=== PATIENT | female | born 1940 | race Caucasian/White ===

== ENCOUNTER 2016-11-06 19:07 | Inpatient (IN) | payer MEDICARE, OTHER ==
[~2016-11-06] VITALS: Ht 157.5 cm; Wt 92.6 kg
[~2016-11-06 19:07] MED LIST: ALEN70TA47 PO; AMLO10TA4 PO; ASPI-892 PO; ATOR40TA; ATOR80TA PO; CALC-732 PO; CLOP75TA; CODE118S2 PO; CRV25T PO; FOLI1TAB7 PO; GLIM4TAB PO; GLMP4T; HCT25T PO; ISOS30TA7 PO; LISI40TA PO; ME-C1TAB PO; METFOR850T PO; NF-METANX; NF-METANX PO; NIA500ERT PO; NTR.4SL; OMG1KC PO; PNT40TEC; PRAS10TA6 PO; RANI75TA30 PO
--- OUTSIDE RECORDS SUMMARY | 2016-11-06 19:12 | XMS REPORT | Continuity of Care Document ---
Author Author [facility] Organization [facility] Address Unknown Phone Unavailable Allergies Active Description Code Type Severity Reaction Onset Reported/Identified Relationship to Patient Clinical Status Yes No Known Drug Allergies [id number] Drug Allergy Unknown N/ A 06/30/2007 Medications Problems Date Dx Coded Attending Type Code Diagnosis Diagnosed By 09/01/2015 CITLALLI BEASLEY MD Ot E78.2 09/01/2015 CITLALLI BEASLEY MD Ot I10 09/01/2015 CITLALLI BEASLEY MD Ot I25.10 09/01/2015 CITLALLI BEASLEY MD Ot R07.89 09/22/2015 CITLALLI BEASLEY MD Ot E78.2 09/22/2015 CITLALLI BEASLEY MD Ot I10 09/22/2015 CITLALLI BEASLEY MD Ot I25.10 09/22/2015 CITLALLI BEASLEY MD Ot R07.89 Procedures Results Encounters ACCT No. Visit Date/Time Discharge Status Pt. Type Provider Facility Loc./Unit Complaint [id number] 01/06/2014 07:34:00 2013 23:59:59 CLS Outpatient [id number] 06/01/2013 09:32:00 2012 23:59:59 CLS Outpatient [id number] 11/06/2016 19:08:00 ACT Emergency VIRGIL JUNG MD [facility] ER VOMITING,POSSIBLE DEHYDRATION [id number] 08/09/2015 10:50:00 ACT Outpatient CITLALLI BEASLEY MD [facility] CARD
--- NOTE | 2016-11-06 19:55 | ED GI ---
General Chief Complaint: Abdominal/GI Problems Stated Complaint: VOMITING,POSSIBLE DEHYDRATION Nursing Triage Note: PT REPORTS N/V SINCE SATURDAY. SHE REPORTS GENERALIZED MALAISE. PT IS ALSO FEBRILE. Sepsis Screen: No Definite Risk Source of Information: Patient Exam Limitations: No Limitations History of Present Illness Time Seen By Provider: 19:54 Initial Comments Is brought to ER by her daughter with reports of nausea vomiting and general malaise for 3 days. She denies any pain or shortness of breath. She denies diarrhea. Timing/Duration: 2-3 Days Severity/Quality: Burning Radiation: No Radiation Activities at Onset: None Associated Symptoms: Nausea/Vomiting Allergies and Home Medications Allergies Coded Allergies: No Known Drug Allergies (Verified , 06/30/07) Home Medications Alendronate Sodium 70 Mg Tablet 70 MG PO WEEKLY (Reported) Amlodipine Besylate 10 Mg Tablet 10 MG PO DAILY (Reported) Aspirin 81 Mg Tablet.dr 81 MG PO DAILY (Reported) Atorvastatin Calcium 80 Mg Tablet 80 MG PO DAILY (Reported) Calcium Carb/Vit D3/Minerals 1 Each Tab.chew 1 EACH PO DAILY (Reported) Carvedilol 25 Mg Tablet 25 MG PO BID (Reported) Folic Acid/Multivits-Min/Lut 1 Each Tab.chew (Reported) Glimepiride 4 Mg Tablet 12 MG PO DAILY (Reported) 8MG IN MORNING AND 4 MG IN EVENING Hydrochlorothiazide 25 Mg Tab 25 MG PO BID (Reported) Isosorbide Dinitrate 30 Mg Tablet 30 MG PO BID (Reported) Lisinopril 40 Mg Tablet 40 MG PO DAILY (Reported) Me-Cobalam/Lm-Folate/Pyridoxal 1 Each Tablet 1 EACH PO BID (Reported) Me-Cobalam/Lm-Folate/Pyridoxal 1 Tab Tablet 1 TAB PO DAILY (Reported) Metformin Hcl 850 Mg Tablet 850 MG PO DAILY (Reported) Niacin 500 Mg Tablet.sa 1,000 MG PO DAILY (Reported) [place] 3 Polyunsat Fatty Acids 1,000 Mg Cap 3,000 MG PO DAILY (Reported) Prasugrel Hydrochloride 10 Mg Tablet 10 MG PO DAILY (Reported) Ranitidine Hcl 75 Mg Tablet 150 MG PO BID (Reported) Review of Systems Constitutional: see HPI malaise weakness EENTM: No Symptoms Reported Respiratory: No Symptoms Reported Cardiovascular: No Symptoms Reported Gastrointestinal: See HPI Abdominal Pain Nausea Vomiting Genitourinary: No Symptoms Reported Musculoskeletal: no symptoms reported Skin: no symptoms reported Psychiatric/Neurological: No Symptoms Reported Endocrine: No Symptoms Reported Hematologic/Lymphatic: No Symptoms Reported Past Yoiwnqg-Yqfemx-Gjrrgq Hx Patient Social History Alcohol Use: Denies Use Recreational Drug Use: No Smoking Status: Former Smoker 2nd Hand Smoke Exposure: No Recent Foreign Travel: No Contact w/Someone Who Travel: No Recent Infectious Disease Expo: No Recent Hopitalizations: Yes Immunizations Up To Date Date of Pneumonia Vaccine: Aug 06, 2012 Date of Influenza Vaccine: Aug 06, 2012 Surgeries HX Surgeries: Yes (LEFT CAROTID) Surgeries: Adenoidectomy, Appendectomy, CABG, Gallbladder, Tonsillectomy Respiratory Hx Respiratory Disorders: Yes (GETS SOB WITH ANY FAST ACTIVITY) Cardiovascular Hx Cardiac Disorders: Yes Cardiac Disorders: Coronary Artery Disease, High Cholesterol, Hypertension Neurological Hx Neurological Disorders: No Reproductive System Hx Reproductive Disorders: No Genitourinary Hx Genitourinary Disorders: No Gastrointestinal Hx Gastrointestinal Disorders: Yes Gastrointestinal Disorders: Gastroesophageal Reflux Musculoskeletal Hx Musculoskeletal Disorders: No Endocrine Hx Endocrine Disorders: Yes Endocrine Disorders: Diabetes, Non-Insulin dep HEENT HX ENT Disorders: No Cancer Hx Cancer: No Physical Exam Vital Signs VS - Last 72 Hours, by Label 11/06/16 19:38 Temp 100.1 Pulse 77 Resp 15 B/P 132/67 Pulse Ox 95 O2 Delivery Room Air Capillary Refill : Less Than 3 Seconds General Appearance: WD/WN no apparent distress HEENT: PERRL/EOMI normal ENT inspection Neck: non-tender full range of motion Respiratory: no respiratory distress no accessory muscle use Gastrointestinal: normal bowel sounds non tender soft Extremities: normal range of motion non-tender Neurologic/Psychiatric: alert normal mood/affect oriented x 3 Skin: normal color warm/dry Progress/Results/Core Measures Results/Orders Lab Results Laboratory Tests Test 11/06/16 19:35 Range/Units Alanine Aminotransferase (ALT/SGPT) 33 0-55 U/L Albumin 4.0 3.2-4.5 G/DL Alkaline Phosphatase 51 40-136 U/L Anion Gap 16 H 5-14 MMOL/L Aspartate Amino Transf (AST/SGOT) 80 H 5-34 U/L BUN/Creatinine Ratio 24 Basophils # (Auto) 0.0 0.0-0.1 10^3/uL Basophils (%) (Auto) 0 0-10 % Blood Urea Nitrogen 29 H 7-18 MG/DL Calcium Level 9.7 8.5-10.1 MG/DL Carbon Dioxide Level 23 21-32 MMOL/L Chloride Level 95 L 98-107 MMOL/L Creatinine 1.22 0.60-1.30 MG/DL Eosinophils # (Auto) 0.0 0.0-0.3 10^3/uL Eosinophils (%) (Auto) 0 0-10 % Estimat Glomerular Filtration Rate 43 Glucose Level 162 H 70-105 MG/DL Hematocrit 38 35-52 % Hemoglobin 13.4 11.5-16.0 G/DL Lipase 11 8-78 U/L Lymphocytes # (Auto) 3.0 1.0-4.0 X 10^3 Lymphocytes (%) (Auto) 27 12-44 % Mean Corpuscular Hemoglobin 30 25-34 PG Mean Corpuscular Hemoglobin Concent 35 32-36 G/DL Mean Corpuscular Volume 86 80-99 FL Mean Platelet Volume 10.5 H 7.4-10.4 FL Monocytes # (Auto) 0.9 0.0-1.0 X 10^3 Monocytes (%) (Auto) 8 0-12 % Neutrophils # (Auto) 7.6 1.8-7.8 X 10^3 Neutrophils (%) (Auto) 66 42-75 % Platelet Count 235 130-400 10^3/uL Potassium Level 3.8 3.6-5.0 MMOL/L Red Blood Count 4.43 4.35-5.85 10^6/uL Red Cell Distribution Width 14.7 H 10.0-14.5 % Sodium Level 134 L 135-145 MMOL/L Total Bilirubin 0.7 0.1-1.0 MG/DL Total Protein 6.9 6.4-8.2 G/DL Troponin I 10.08 *H <0.30 NG/ML White Blood Count 11.5 H 4.3-11.0 10^3/uL My Orders Orders-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 Cbc With Automated Diff (11/06/16 19:49) Saline Lock/Iv-Start (11/06/16 19:49) Comprehensive Metabolic Panel (11/06/16 19:49) Ua Culture If Indicated (11/06/16 19:49) Lipase (11/06/16 19:49) Chest 1 View, Ap/Pa Only (11/06/16 19:49) Ekg Tracing (11/06/16 19:49) Troponin I (11/06/16 19:49) Ns Iv 1000 Ml (Sodium Chloride 0.9%) (11/06/16 20:00) Ondansetron Injection (Zofran Injectio (11/06/16 20:00) Aspirin Chewable Tablet (Baby Aspirin Ch (11/06/16 20:30) Heparin Drip 19731 Unit/500ml (Heparin (11/06/16 20:32) Heparin (Bolus Per Protocol) (Heparin (B (11/06/16 20:32) Clopidogrel Tablet (Plavix Tablet) (11/06/16 20:45) Enoxaparin Injection (Lovenox Injection) (11/06/16 20:45) Carvedilol Tablet (Coreg Tablet) (11/06/16 20:45) Medications Given in ED Current Medications Medications Dose Ordered Sig/Reena Route Start Time Stop Time Status Last Admin Dose Admin Ondansetron HCl 4 mg ONCE ONCE IVP 11/06/16 20:00 11/06/16 20:01 DC 11/06/16 19:50 4 MG Vital Signs/I&O Vital Sign - Last 12Hours 11/06/16 19:38 Temp 100.1 Pulse 77 Resp 15 B/P 132/67 Pulse Ox 95 O2 Delivery Room Air Blood Pressure Mean: 88 Departure Communication Time/Spoke to Admitting Phy: 20:[address] Crocker who is on-call for cardiology. We'll admit to medicine consult cardiology. We will do treatment dose Lovenox, beta kun and the patient is already on carvedilol so we will give her her evening dose of 25 mg, aspirin and Plavix. Blood pressure is elevated at 165/110 heart rate in the 80s. She still denies any chest pain. Time/Spoke to Consulting Physi: 20:54 Communication/Consulting Discuss with Dr. Patel who agrees to admit. Impression Impression: Primary Impression: NSTEMI (non-ST elevated myocardial infarction) Disposition: 09 ADMITTED INPATIENT Condition: Stable Decision to Admit Reason: Admit from ER (General) Decision to Admit/Date: Nov 06, 2016 Time/Decision to Admit Time: 20:54 Departure-Patient Inst. Referrals: PRESTON JONES MD (PCP/Family) Primary Care Physician Copy Copies To 1: PRESTON JONES MD, PETER J APRN Nov 06, 2016 19:55
[2016-11-06 19:59] LABS: BASOPHILS % (AUTO) 0 % (0-10); EOSINOPHILS % (AUTO) 0 % (0-10); LYMPHOCYTES % (AUTO) 27 % (12-44); MEAN CORPUSCULAR HEMOGLOBIN 30 PG (25-34); MEAN CORPUSCULAR HGB CONC 35 G/DL (32-36); MEAN CORPUSCULAR VOLUME 86 FL (80-99); MEAN PLATELET VOLUME 10.5 FL (7.4-10.4); MONOCYTES # (AUTO) 0.9 X 10^3 (0.0-1.0); MONOCYTES % (AUTO) 8 % (0-12); NEUTROPHILS # (AUTO) 7.6 X 10^3 (1.8-7.8); NEUTROPHILS % (AUTO) 66 % (42-75); PLATELET COUNT 235 10^3/uL (130-400); RED BLOOD COUNT 4.43 10^6/uL (4.35-5.85); RED CELL DISTRIBUTION WIDTH 14.7 % (10.0-14.5); WHITE BLOOD COUNT 11.5 10^3/uL (4.3-11.0)
[2016-11-06] MEDS ORDERED: ONDANSETRON 4 MG/2 ML (SDV) Z0FRAN IVP ONE (20:00)
[2016-11-06] MEDS ORDERED: NS IV 1000 ML 1,000 ML IV SCH (20:00)
[2016-11-06 20:21] LABS: BILIRUBIN,TOTAL 0.7 MG/DL (0.1-1.0); CALCIUM 9.7 MG/DL (8.5-10.1); CREATININE SERUM 1.22 MG/DL (0.60-1.30); POTASSIUM 3.8 MMOL/L (3.6-5.0); TOTAL PROTEIN 6.9 G/DL (6.4-8.2)
[2016-11-06 20:30] LABS: TROPONIN I 10.08 NG/ML (<0.30)
[2016-11-06] MEDS ORDERED: ASPIRIN 81 MG CHEW (CHILDREN'S ASA) PO ONE (20:30)
--- NOTE | 2016-11-06 20:30 | Diagnostic Imaging Report ---
EXAM: CHEST 1 VIEW, AP/PA ONLY INDICATION: Nausea and vomiting. Fever. COMPARISON: Chest radiograph 08/05/2012. FINDINGS: No significant change. Normal heart size and pulmonary vascularity. Sternotomy with mediastinal markers. No focal pulmonary opacity, pleural effusion or pneumothorax. Esophageal hiatal hernia. Surgical clips in the neck. No acute osseous findings. IMPRESSION: No acute cardiopulmonary findings. Dictated by: Dictated on workstation # [id number]
[2016-11-06] MEDS ORDERED: HEParin DRIP 25000 UNIT/500ML 500 ML IV ONE (20:32)
[2016-11-06] MEDS ORDERED: HEParin 1000 UNIT/ML (10ML VIAL) FOR BOLUS IV ONE (20:32)
[2016-11-06] MEDS ORDERED: CLOPIDOGREL 300 MG (PLAVIX) TABLET PO ONE (20:45)
[2016-11-06] MEDS ORDERED: ENOXAPARIN 100 MG/1 ML (LOVENOX) SYR SC ONE (20:45)
[2016-11-06] MEDS ORDERED: CARVEDILOL 6.25 MG (COREG) TAB PO ONE (20:45)
[2016-11-06 23:45] VITALS: BP 162/57
[2016-11-07] VITALS (26 sets, daily range): BP systolic 117–172; BP diastolic 52–117
[2016-11-07 04:02] LABS: BASOPHILS % (AUTO) 0 % (0-10); EOSINOPHILS % (AUTO) 0 % (0-10); LYMPHOCYTES # (AUTO) 2.2 X 10^3 (1.0-4.0); LYMPHOCYTES % (AUTO) 20 % (12-44); MEAN CORPUSCULAR HEMOGLOBIN 30 PG (25-34); MEAN CORPUSCULAR HGB CONC 35 G/DL (32-36); MEAN CORPUSCULAR VOLUME 87 FL (80-99); MEAN PLATELET VOLUME 9.9 FL (7.4-10.4); MONOCYTES # (AUTO) 1.2 X 10^3 (0.0-1.0); MONOCYTES % (AUTO) 11 % (0-12); NEUTROPHILS # (AUTO) 7.3 X 10^3 (1.8-7.8); NEUTROPHILS % (AUTO) 68 % (42-75); PLATELET COUNT 204 10^3/uL (130-400); RED BLOOD COUNT 4.23 10^6/uL (4.35-5.85); RED CELL DISTRIBUTION WIDTH 14.6 % (10.0-14.5); WHITE BLOOD COUNT 10.7 10^3/uL (4.3-11.0)
[2016-11-07 04:25] LABS: CALCIUM 8.9 MG/DL (8.5-10.1); CREATININE SERUM 1.14 MG/DL (0.60-1.30); MAGNESIUM 1.9 MG/DL (1.8-2.4); PHOSPHORUS 3.6 MG/DL (2.3-4.7); POTASSIUM 3.9 MMOL/L (3.6-5.0)
[2016-11-07 04:52] LABS: MYOGLOBIN SERUM 151.8 NG/ML (10.0-92.0)
[2016-11-07] MEDS ORDERED: CARVEDILOL 12.5 MG (COREG) TABLET PO SCH (07:00)
[2016-11-07] MEDS ORDERED: fentaNYL INJECTION 100 MCG/2 ML AMP ONE (07:35)
[2016-11-07] MEDS ORDERED: MIDAZOLAM 5 MG/5 ML (VERSED) VIAL ONE (07:35)
[2016-11-07] MEDS ORDERED: HEParin (CATH LAB) 2,000 ML IV ONE (07:36)
[2016-11-07] MEDS ORDERED: NS IV 1000 ML 1,000 ML ONE (07:36)
[2016-11-07] MEDS ORDERED: LIDOCAINE 1% INJ 20 ML (XYLOCAINE) VIAL ONE (07:36)
--- NOTE | 2016-11-07 07:40 | Pulmonary Consultation ---
History of Present Illness History of Present Illness Date of Consultation 11/07/16 07:34 Date of Admission History of Present Illness 76yo presented to ED secondary to nausea, vomiting, and general malaise x 3 days. Pt found to have NSTEMI. Cardiology is planning on taking patient to laboratory tech today. Denies SOB or productive cough. Allergies and Home Medications Allergies Coded Allergies: No Known Drug Allergies (Verified , 06/30/07) Home Medications Amlodipine Besylate 10 Mg Tablet, 10 MG PO DAILY, (Reported) Aspirin 81 Mg Tablet.dr, 81 MG PO DAILY, (Reported) Atorvastatin Calcium 80 Mg Tablet, 80 MG PO HS, (Reported) Calcium Carbonate 500 Mg Tablet, 1,000 MG PO DAILY, (Reported) Carvedilol 25 Mg Tablet, 25 MG PO BID, (Reported) Clotrimazole/Betamethasone Dip 15 Gm Cream..g., 0 GM TP BID, #1 Prescribed by: RADHA CERDA on 11/20/16922 Folic Acid/Multivits-Min/Lut 1 Each Tab.chew, 1 TAB PO DAILY, (Reported) Isosorbide Mononitrate 30 Mg Tab.er.24h, 30 MG PO BID, (Reported) Levomefolate/B6/B12/Algal Oil 1 Each Capsule, 1 CAP PO DAILY, (Reported) Lisinopril 40 Mg Tablet, 40 MG PO DAILY, (Reported) Metformin HCl 850 Mg Tablet, 850 MG PO DAILY, (Reported) Nitroglycerin 0.4 Mg Tab.subl, 0.4 MG SL UD PRN for CHEST PAIN, (Reported) [place] 3 Polyunsat Fatty Acids 1,000 Mg Cap, 3,000 MG PO DAILY, (Reported) TAKES 3 (1000MG) CAPSULES Omeprazole 20 Mg Capsule.dr, 20 MG PO DAILY, (Reported) Ranitidine HCl 150 Mg Tablet, 150 MG PO BID, (Reported) Ticagrelor 90 Mg Tablet, 90 MG PO BID for 30 Days Prescribed by: KEISHA GARDNER on 11/09/16 1040 Tramadol HCl 50 Mg Tablet, 0 MG PO Q8H PRN for MILD PAIN, #30 Prescribed by: RADHA CERDA on 11/20/16 0923 Past Voidfky-Eyrwnf-Akjqoc Hx Patient Social History Alcohol Use: Denies Use Recreational Drug Use: No Smoking Status: Former Smoker 2nd Hand Smoke Exposure: No Recent Foreign Travel: No Contact w/Someone Who Travel: No Recent Infectious Disease Expo: No Recent Hopitalizations: Yes Physical Abuse Screen: No Sexual Abuse: No Immunizations Up To Date PED Vaccines UTD: No Date of Pneumonia Vaccine: Aug 06, 2012 Date of Influenza Vaccine: Jun 20, 2016 Seasonal Allergies Seasonal Allergies: No Surgeries HX Surgeries: Yes (LEFT CAROTID) Surgeries: Adenoidectomy, Appendectomy, CABG, Gallbladder, Tonsillectomy Respiratory Hx Respiratory Disorders: Yes (GETS SOB WITH ANY FAST ACTIVITY) Respiratory Disorders: COPD Cardiovascular Hx Cardiac Disorders: Yes Cardiac Disorders: Coronary Artery Disease, High Cholesterol, Hypertension Neurological Hx Neurological Disorders: No Reproductive System Hx Reproductive Disorders: No Sexually Transmitted Disease: No HIV/AIDS: No Genitourinary Hx Genitourinary Disorders: No Gastrointestinal Hx Gastrointestinal Disorders: Yes Gastrointestinal Disorders: Gastroesophageal Reflux Musculoskeletal Hx Musculoskeletal Disorders: No Endocrine Hx Endocrine Disorders: Yes Endocrine Disorders: Diabetes, Non-Insulin dep HEENT HX ENT Disorders: No Cancer Hx Cancer: No Blood Transfusions Adverse Reaction to a Blood Tr: No Family Medical History Family Medial History: FH: CVA (cerebrovascular accident) 19 FATHER Myocardial infarction 19 MOTHER Thyroid disease G8 BROTHER Exam Exam Vital Signs Date Time Temp Pulse Resp B/P Pulse Ox O2 Delivery O2 Flow Rate FiO2 11/07/16 06:00 74 151/53 92 Room Air 11/07/16 05:00 69 169/63 90 Room Air 11/07/16 04:00 79 139/71 92 Room Air 11/07/16 04:00 94 11/07/16 03:00 88 167/65 91 Room Air 11/07/16 02:00 83 146/60 92 Room Air 11/07/16 01:00 74 11/07/16 01:00 69 172/56 91 Room Air 11/07/16 00:31 Room Air 11/07/16 00:00 80 159/65 94 Room Air 11/06/16 23:45 99.5 74 16 162/57 94 Room Air 11/06/16 23:11 77 11/06/16 22:53 100.1 70 16 96 11/06/16 19:38 100.1 77 15 132/67 95 Room Air I & O 11/07/16 07:00 Intake Total 1100 ml Output Total 450 ml Balance 650 ml General Appearance: No Apparent Distress, WD/WN HEENT: PERRL/EOMI, Normal ENT Inspection Neck: Full Range of Motion Respiratory: Chest Non Tender, No Accessory Muscle Use, No Respiratory Distress , Decreased Breath Sounds Cardiovascular: Regular Rate, Rhythm, No Edema Capillary Refill: Less Than 3 Seconds Gastrointestinal: normal bowel sounds, non tender, soft Extremity: Normal Capillary Refill, Normal Inspection, Normal Range of Motion Neurologic/Psychiatric: Alert Skin: Normal Color, Warm/Dry Results Lab Laboratory Tests 11/06/16 19:35 11/07/16 03:51 Assessment/Plan Assessment/Plan NSTEMI -Dr. Villatoro is taking patient for cath today Clinical Quality Measures DVT/VTE Risk/Contraindication: Risk Factor Score Per Nursin RFS Level Per Nursing on Admit: 4+=Very High DEIRDRE LOPES DO Nov 07, 2016 07:39
--- NOTE | 2016-11-07 07:46 | Consultation-Cardiology ---
HPI-Cardiology Cardiology Consultation Date of Consultation 11/07/16 Date of Admission Indication: chest pain HPI 76-year-old lady with history of coronary artery disease, extensive disease, has been complaining of nausea and vomiting, generalized fatigue and loss of energy. Came into the emergency room thinking that she had the flu. On EKG she had changes suggestive of myocardial infarction in addition to elevated troponin. Upper my evaluation she expressed that she had minimal chest discomfort. She had some dyspnea on exertion, no palpitation, no syncope. Has been having nausea and vomiting and loss of energy. Home Medications & Allergies Allergies: Coded Allergies: No Known Drug Allergies (Verified , 06/30/07) Home Medication List Reviewed: Yes JAU-Zttnia-Mykxov Hx Patient Social History Alcohol Use: Denies Use Recreational Drug Use: No Smoking Status: Former Smoker 2nd Hand Smoke Exposure: No Recent Foreign Travel: No Recent Infectious Disease Expo: No Recent Hopitalizations: Yes Physical Abuse Screen: No Sexual Abuse: No Immunizations Up To Date Date of Pneumonia Vaccine: Aug 06, 2012 Date of Influenza Vaccine: Jun 20, 2016 Past Medical History past medical history as discussed below Family Medical History Family History: 19 FATHER FH: CVA (cerebrovascular accident) 19 MOTHER Myocardial infarction G8 BROTHER Thyroid disease Constitutional: see HPI malaise weakness EENTM: no symptoms reported see HPI Respiratory: see HPINo cough, dyspnea on exertionNo hemoptysis, No orthopnea , No phlegm, short of breathNo stridor, No wheezing, No other Cardiovascular: see HPI chest painNo edema, No Hx of Intervention, No palpitations, No syncope, No vascular heart diseas, No other Gastrointestinal: No RUQ, No LUQ, No RLQ, No LLQ, see HPINo abdominal pain, No constipation, No diarrhea, No dysphagia, No hematemesis, No heartburn, No jaundice, No loss of appetite, No melena, nausea vomitingNo other Genitourinary: no symptoms reported see HPI Musculoskeletal: no symptoms reported see HPI Skin: no symptoms reported see HPI Psychiatric/Neurological: No Symptoms Reported See HPI Reviewed Test Results Reviewed Test Results Lab Laboratory Tests Test 11/06/16 19:35 11/07/16 01:41 11/07/16 03:51 Range/Units Alanine Aminotransferase (ALT/SGPT) 33 0-55 U/L Albumin 4.0 3.2-4.5 G/DL Alkaline Phosphatase 51 40-136 U/L Anion Gap 16 H 14 5-14 MMOL/L Aspartate Amino Transf (AST/SGOT) 80 H 5-34 U/L BUN/Creatinine Ratio 24 28 Basophils # (Auto) 0.0 0.0 0.0-0.1 10^3/uL Basophils (%) (Auto) 0 0 0-10 % Blood Urea Nitrogen 29 H 32 H 7-18 MG/DL Calcium Level 9.7 8.9 8.5-10.1 MG/DL Carbon Dioxide Level 23 21 21-32 MMOL/L Chloride Level 95 L 97 L 98-107 MMOL/L Creatinine 1.22 1.14 0.60-1.30 MG/DL Eosinophils # (Auto) 0.0 0.0 0.0-0.3 10^3/uL Eosinophils (%) (Auto) 0 0 0-10 % Estimat Glomerular Filtration Rate 43 46 Glucose Level 162 H 160 H 70-105 MG/DL Hematocrit 38 37 35-52 % Hemoglobin 13.4 12.7 11.5-16.0 G/DL Lipase 11 8-78 U/L Lymphocytes # (Auto) 3.0 2.2 1.0-4.0 X 10^3 Lymphocytes (%) (Auto) 27 20 12-44 % Mean Corpuscular Hemoglobin 30 30 25-34 PG Mean Corpuscular Hemoglobin Concent 35 35 32-36 G/DL Mean Corpuscular Volume 86 87 80-99 FL Mean Platelet Volume 10.5 H 9.9 7.4-10.4 FL Monocytes # (Auto) 0.9 1.2 H 0.0-1.0 X 10^3 Monocytes (%) (Auto) 8 11 0-12 % Neutrophils # (Auto) 7.6 7.3 1.8-7.8 X 10^3 Neutrophils (%) (Auto) 66 68 42-75 % Platelet Count 235 204 130-400 10^3/uL Potassium Level 3.8 3.9 3.6-5.0 MMOL/L Red Blood Count 4.43 4.23 L 4.35-5.85 10^6/uL Red Cell Distribution Width 14.7 H 14.6 H 10.0-14.5 % Sodium Level 134 L 132 L 135-145 MMOL/L Total Bilirubin 0.7 0.1-1.0 MG/DL Total Protein 6.9 6.4-8.2 G/DL Troponin I 10.08 *H 8.50 *H <0.30 NG/ML White Blood Count 11.5 H 10.7 4.3-11.0 10^3/uL Cholesterol Level 142 < 200 MG/DL Creatine Kinase MB 9.7 *H <6.6 NG/ML HDL Cholesterol 33 L 40-60 MG/DL LDL Cholesterol Direct 85 1-129 MG/DL Magnesium Level 1.9 1.8-2.4 MG/DL Myoglobin 151.8 H 10.0-92.0 NG/ML Phosphorus Level 3.6 2.3-4.7 MG/DL Total Creatine Kinase 322 H 29-168 U/L Triglycerides Level 117 <150 MG/DL VLDL Cholesterol 23 5-40 MG/DL Physical Exam Vital Signs Vital Sign - Last 12Hours 11/06/16 19:38 Temp 100.1 Pulse 77 Resp 15 B/P 132/67 Pulse Ox 95 O2 Delivery Room Air Capillary Refill : Less Than 3 Seconds General Appearance: WD/WN Mild Distress Eyes: Bilateral Eye EOMI, Bilateral Eye Normal Inspection, Bilateral Eye PERRL HEENT: PERRL/EOMI TMs Normal Normal ENT Inspection Pharynx Normal Neck: Full Range of Motion Normal Inspection Non Tender Supple Carotid Bruit Respiratory: Chest Non Tender Lungs Clear Normal Breath Sounds No Accessory Muscle Use No Respiratory Distress Cardiovascular: Regular Rate, Rhythm No Edema No Gallop No JVD No Murmur Normal Peripheral Pulses Gastrointestinal: Normal Bowel Sounds No Organomegaly No Pulsatile Mass Non Tender Soft Back: Normal Inspection No CVA Tenderness No Vertebral Tenderness Extremity: Normal Capillary Refill Normal Inspection Normal Range of Motion Non Tender No Calf Tenderness No Pedal Edema Neurologic/Psychiatric: Alert Oriented x3 No Motor/Sensory Deficits Normal Mood/Affect Skin: Normal Color Warm/Dry Lymphatic: No Adenopathy A/P-Cardiology Admission Diagnosis non-ST elevation myocardial infarctions Coronary artery disease Hypertension Hyperlipidemia Assessment/Plan Non-ST elevation myocardial infarction, admitted to the intensive care unit, significantly elevated troponin, EKG changes, discussed with the patient the management plan recommended cardiac catheterization possible PTCA. Patient had extensive disease deemed in operable, the troponin elevation is significant. I will reevaluate her coronary anatomy. Coronary artery disease, history of CABG 3 in 1996 with vein graft to diagonal , vein graft to OM 2 and FOX to LAD. Most recent cardiac catheterization August 2012 and was referred to Dr. Garnica for possible redo CABG, however it was deemed patient is not a good surgical candidate and vessels are very small and recommended continuation of medical management. at this point patient is having significant elevation in troponin, she is symptomatic, planning to reevaluate coronary anatomy. Peripheral vascular disease-monitored by heart and vascular care, continue to monitor at this time. No changes are recommended. Carotid artery stenosis with history of bilateral CEA, followed by heart and vascular care, continue to monitor. Renal artery stenosis-history of stent to right renal artery in June 2012, followed by heart and vascular care. Hypertension, Restart home medications and monitor. Hyperlipidemia, I will evaluate lipid profile Diabetes mellitus, followed by primary care physician. Ultra-rapid Plavix metabolizer Obesity, BMI is 36. Patient was educated on weight loss. Clinical Quality Measures DVT/VTE Risk/Contraindication: Risk Factor Score Per Nursin RFS Level Per Nursing on Admit: 4+=Very High CITLALLI BEASLEY MD Nov 07, 2016 07:46
--- NOTE | 2016-11-07 07:47 | Cardiac Procedure Note-CS/ASA ---
Pre-Procedure Note Pre-Op Procedure Note H&P Reviewed The H&P was reviewed, patient examined and no changes noted. Date H&P Reviewed: Nov 07, 2016 Time H&P Reviewed: 07:46 Conscious Sedation Pre-Proced Time Reviewed: 07:46 ASA Class: 3 Airway Mallampati Classification: ([place] appropriate class) I. II. III, IV Lungs Heart ASA score ASA 1: a normal healthy patient ASA 2: a patient with a mild systemic disease (mid diabetes, controlled hypertension, obesity x ASA 3: a patient with a severe systemic disease that limits activity (angina , COPD, prior Myocardial infarction) ASA 4: a patient with an incapacitating disease that is a constant threat to life (CHF, renal failure) ASA 5: a moribund patient not expected to survive 24 hrs. (ruptured aneurysm) ASA 6: a declared brain patient whose organs are being harvested. For emergent operations, add the letter E after the classification Grade 3 Sedation Plan: Analgesia, Amnesia, Plan communicated to team members, Discussed options with patient/fam, Discussed risks with patient/fam Note The patient is an appropriate candidate to undergo the planned procedure, sedation, and anesthesia. The patient immediately re-assessed prior to indication. CITLALLI BEASLEY MD Nov 07, 2016 07:46
[2016-11-07 08:01] LABS: INR 1.1 (0.8-1.4); PROTHROMBIN TIME PATIENT 14.2 SEC (12.2-14.7)
[2016-11-07] MEDS ORDERED: NITR0.4T SL (08:11)
[2016-11-07] MEDS ORDERED: ISOS30TA3 PO (08:11)
[2016-11-07] MEDS ORDERED: OMEP20CA12 PO (08:11)
[2016-11-07] MEDS ORDERED: RANI150T11 PO (08:11)
[2016-11-07] MEDS ORDERED: METF850T2 PO (08:11)
[2016-11-07] MEDS ORDERED: CALC-823 PO (08:11)
[2016-11-07] MEDS ORDERED: GLIM4TAB PO (08:11)
[2016-11-07] MEDS ORDERED: LEVO1CAP9 PO (08:11)
[2016-11-07] MEDS ORDERED: ATOR80TA76 PO (08:11)
[2016-11-07] MEDS ORDERED: NITROGLYCERIN DRIP 25 MG/D5W 0 ML IV ONE (08:24)
[2016-11-07] MEDS: NS IV 1000 ML 1,000 ML IV SCH ×3 (08:40→20:49)
[2016-11-07] MEDS ORDERED: NITROGLYCERIN SUBLINGUAL 0.4 MG TAB (NITROSTAT) SL PRN (08:45)
[2016-11-07] MEDS ORDERED: PATIENT MAY USE OWN MEDS, ALL PO SCH (08:45)
[2016-11-07] MEDS ORDERED: B6 PO SCH (09:00)
[2016-11-07] MEDS ORDERED: ALGAL OIL PO SCH (09:00)
[2016-11-07] MEDS ORDERED: CLOPIDOGREL 75 MG (PLAVIX) TABLET PO SCH (09:00)
[2016-11-07] MEDS ORDERED: LEVOMEFOLATE PO SCH (09:00)
[2016-11-07] MEDS ORDERED: [UNRECOGNIZED DRUG - OTHER] PO SCH (09:00)
[2016-11-07] MEDS ORDERED: B12 PO SCH (09:00)
[2016-11-07] MEDS ORDERED: ASPIRIN 81 MG CHEW (CHILDREN'S ASA) PO SCH (09:00)
--- NOTE | 2016-11-07 09:52 | Diagnostic Imaging Report ---
INDICATION: Myocardial infarct COMPARISON: 11/06/2016 FINDINGS: The lungs are clear. The heart size and vascularity are within normal limits. There is no effusion or pneumothorax. No free air beneath the diaphragms. IMPRESSION: No acute appearing abnormality. Dictated by: Dictated on workstation # [id number]
[2016-11-07] MEDS: ONDANSETRON 4 MG/2 ML (SDV) Z0FRAN IV PRN ×3 (10:04→21:11)
[2016-11-07] MEDS: PANTOPRAZOLE 20 MG TABLET (PROTONIX) PO SCH (10:04)
[2016-11-07] MEDS: MICONAZOLE 2% POWDER (DESENEX AF) 90 GM TOP SCH ×2 (10:41→21:21)
[2016-11-07] MEDS: TICAGRELOR 90 MG TABLET (BRILINTA) PO SCH ×2 (10:41→22:35)
[2016-11-07] MEDS: inSUlin (REGULAR) HUMAN 1 UNIT/0.01 ML (CHARGE PER UNIT) SC SCH ×3 (11:00→21:00)
[2016-11-07] MEDS: FAMOTIDINE 20 MG (PEPCID) TABLET PO SCH (11:23)
[2016-11-07] MEDS: lisINopril 20 MG (ZESTRIL) TAB PO SCH (11:23)
[2016-11-07] MEDS: GLIMEPIRIDE 4 MG (AMARYL) TAB PO SCH ×2 (11:23→22:36)
[2016-11-07] MEDS: amLODIPine 10 MG (NORVASC) TAB PO SCH (11:23)
[2016-11-07] MEDS: HYDROCHLOROTHIAZIDE 25 MG (HCTZ) TAB PO SCH (11:24)
[2016-11-07] MEDS: CARVEDILOL 12.5 MG (COREG) TABLET PO SCH ×2 (11:24→22:35)
[2016-11-07] MEDS: ENOXAPARIN 100 MG/1 ML (LOVENOX) SYR SC SCH ×2 (11:24→21:15)
[2016-11-07] MEDS: ISOSORBIDE MONONITRATE 30 MG (IMDUR) TAB PO SCH ×2 (11:24→22:34)
[2016-11-07] MEDS: ASPIRIN E.C. 81 MG (ECOTRIN) TAB PO SCH (11:24)
[2016-11-07] MEDS: MULTIVIT W/MINERALS TAB (THERAGRAN M) PO SCH (11:28)
[2016-11-07] MEDS: OMEGA 3 (FISH OIL) 1000 MG CAP PO SCH (11:28)
--- NOTE | 2016-11-07 12:05 | History & Physical-Hospitalist ---
HPI History of Present Illness: HPI/Chief Complaint CC: Chest pain HPI: This is a 76[address]WF pt of Dr. Marsh that presents with 43 day hx of not feeling well with vague chest pressure. Presented to ER with Troponin of 10. Heart cath performed which revealed multi-vessel disease, and unable to modify progressive and end stage CAD. Pt had previous bypass. customer operations specialist: Pt received heart cath today. Pt has major collateral flow. Pt has poor flow to legs. Left groin is moist and yeasty, and RN requests powder. Patient Interview: Pt sleeping during visit. Pt's daughters were visiting pt. Physical exam stable. PCP is Dr. Marsh. Pt lives at home with assistance from son. Scribed by Erick Irvin under the direct supervision of Dr. Patel. Source: family Exam Limitations: clinical condition Date Seen 11/07/16 Attending Physician Arely Patel DO PCP Latonya Marsh MD Referring Physician Date of Admission Nov 06, 2016 at 20:44 Home Medications & Allergies Home Medications Reviewed patient Home Medication Reconciliation Form Allergies Coded Allergies: No Known Drug Allergies (Verified , 06/30/07) Past Skjtmlo-Fumnxj-Nzhdal Hx Patient Social History Marrital Status: single Employed/Student: retired Alcohol Use: Denies Use Recreational Drug Use: No Smoking Status: Former Smoker 2nd Hand Smoke Exposure: No Physical Abuse Screen: No Sexual Abuse: No Recent Foreign Travel: No Contact w/other who traveled: No Recent Hopitalizations: Yes Recent Infectious Disease Expo: No Immunizations Up To Date Date of Pneumonia Vaccine: Aug 06, 2012 Date of Influenza Vaccine: Jun 20, 2016 Seasonal Allergies Seasonal Allergies: No Surgeries HX Surgeries: Yes (LEFT CAROTID) Surgeries: Adenoidectomy, Appendectomy, CABG, Gallbladder, Tonsillectomy Respiratory Hx Respiratory Disorders: Yes (GETS SOB WITH ANY FAST ACTIVITY) Cardiovascular Hx Cardiovascular Disorders: Yes Cardiac Disorders: Coronary Artery Disease, High Cholesterol, Hypertension Neurological Hx Neurological Disorders: No Reproductive System Hx Reproductive Disorders: No Sexually Transmitted Disease: No HIV/AIDS: No Genitourinary Hx Genitourinary Disorders: No Gastrointestinal Hx Gastrointestinal Disorders: Yes Gastrointestinal Disorders: Gastroesophageal Reflux Musculoskeletal Hx Musculoskeletal Disorders: No Endocrine Hx Endocrine Disorders: Yes Endocrine Disorders: Diabetes, Non-Insulin dep HEENT HX ENT Disorders: No Cancer Hx Cancer: No Blood Transfusions Adverse Reaction to a Blood Tr: No Family Medical History Family Hx: FH: CVA (cerebrovascular accident) 19 FATHER Myocardial infarction 19 MOTHER Thyroid disease G8 BROTHER Review of Systems ROS-Unable to Obtain: no details obtained due to sedation Constitutional: see HPI Physical Exam Physical Exam Vital Signs Vital Sign - Last 12Hours 11/06/16 19:38 Temp 100.1 Pulse 77 Resp 15 B/P 132/67 Pulse Ox 95 O2 Delivery Room Air Capillary Refill : Less Than 3 Seconds General Appearance: No Apparent Distress WD/WN Chronically ill Obese Eyes: Bilateral Eye Normal Inspection, Bilateral Eye PERRL HEENT: PERRL/EOMI Normal ENT Inspection Pharynx Normal Neck: Full Range of Motion Normal Inspection Non Tender Supple Carotid Bruit Respiratory: Chest Non Tender Lungs Clear Normal Breath Sounds No Accessory Muscle Use No Respiratory Distress Cardiovascular: Regular Rate, Rhythm No Edema No Gallop No JVD No Murmur Normal Peripheral Pulses Gastrointestinal: Normal Bowel Sounds No Organomegaly No Pulsatile Mass Non Tender Soft Back: Normal Inspection No CVA Tenderness No Vertebral Tenderness Extremity: Normal Capillary Refill Normal Inspection Normal Range of Motion Non Tender No Calf Tenderness No Pedal Edema Neurologic/Psychiatric: Alert Oriented x3 No Motor/Sensory Deficits Normal Mood/Affect Skin: Normal Color Warm/Dry Lymphatic: No Adenopathy Results Results/Procedures Lab Laboratory Tests 11/06/16 19:35 11/07/16 03:51 Assessment/Plan Admission Diagnosis Assessment: Non-ST elevation [place] with multivessel disease unable to intervene HTN HLP OP DM Angina GERD Assessment and Plan Plan: Powder/cream for groin DC home Poor prognosis Clinical Quality Measures DVT/VTE Risk/Contraindication: Risk Factor Score Per Nursin RFS Level Per Nursing on Admit: 4+=Very High ARELY PATEL DO Nov 07, 2016 12:05
[2016-11-07] MEDS ORDERED: TRAM50TA2 PO (13:53)
--- NOTE | 2016-11-07 15:41 | Physical Therapy Daily Note ---
PT Daily Note-Current Pain Comment: C/O nausea. Mental Status Attachments: IV Transfers Functional [place] Measure 0=Not Assessed/NA 4=Minimal Assistance 1=Total Assistance 5=Supervision or Setup 2=Maximal Assistance 6=Modified [place] 3=Moderate Assistance 7=Complete IndependenceIRFPAI Quality Coding Scale 6 Independent with activity with or without an assistive device 5 Patient requires set up or clean up by helper. Patient completes activity by themselves 4 Supervision or touching assist (CGA). [place] provide cues , steadying assist 3 The helper provides less than half the effort to complete the activity 2 The helper provides more than half the effort to complete the activity 1 Dependent. The helper does all the effort to complete an activity 7 Patient refused to complete or attempt activity 9 The patient did not perform the activity before the current illness or injury 88 Not attempted due to Medical conditions or safety concerns Gait Training Gait (FIM): 1 Distance: 15 ft around bed. Nursing walked her earlier 15 ft. IVETH ARORA PT Nov 07, 2016 15:41 Bed to/from Chair: 4 Needed help bringing legs into the bed. Stood well from the commode and bed. Sleeps on her side. Weight Bearing Weight Bearing Restriction: Weight Bearing/Tolerated Gait Training Gait (FIM): 1 Distance (FIM): 1=up to 49 ft Distance: 15 ft around bed. Nursing walked her earlier 15 ft. Gait Level of Assist: 4 Gait Assistive Device: FWW Steady with FWW but weak and tired. IVETH ARORA PT Nov 07, 2016 15:41
--- NOTE | 2016-11-07 15:55 | Physical Therapy Evaluation ---
PT Evaluation-General Medical Diagnosis Admission Date Nov 06, 2016 at 20:44 Medical Diagnosis: CAD, cardiac cath this morning Onset Date: Nov 07, 2016 Therapy Diagnosis Therapy Diagnosis: Generalized weakness Height/Weight Height (Feet): 5 Height (Inches): 2.00 Weight (Pounds): 197 Weight (Ounces): 0.0 Precautions Precautions/Isolations: Standard Precautions Weight Bear Status Weight Bearing Restriction: Weight Bearing/Tolerated Referral Physician: Jorge Reason for Referral: Evaluation/Treatment Medical History Pertinent Medical History: CABG, CAD Current History Has not felt well for the past month. Admitted with nausea. Underwent cardiac cath this morning: multi vessel disease. Reviewed History: Yes Social History Home: Single Level Current Living Status: Other Family Entry Into Home: Ramp She lives with her son who is in and out of the home. Prior/Core FIM Prior Level of Function Functional [place] Measure 0=Not Assessed/NA 4=Minimal Assistance 1=Total Assistance 5=Supervision or Setup 2=Maximal Assistance 6=Modified [place] 3=Moderate Assistance 7=Complete [place] Bed Mobility: 4 Transfers (B,C,W/C) (FIM): 4 Gait: 2 (15 ft with FWW) Normally amb in home with single cane. Today she is using FWW due to weakness/ fatigue. Amb 15 around bed with good steps and steady, fatigued quickly. PT Evaluation-Current Subjective Pt states she is tired and nauseated. She feels she will do better tomorrow if she can get a good night's sleep. Pain Numeric Pain Scale: 0-No Pain Pt/Family Goals Return home with safe mobility. Feel better. Objective Patient Orientation: Person, Place, Time, Situation Problem Solving: Fair Attachments: IV ROM/Strength ROM Upper Extremities WNL ROM Lower Extremities WNL Strength Upper Extremities WNL Strenght Lower Extremities WFL Integumentary/Posture Integumentary Intact Neuromuscular (Tone, Coordination, Reflexes) Normal coordination. Sensory Vision: Functional Sensation Right Upper Extremit: Intact Sensation Left Upper Extremity: Intact Sensation Right Lower Extremit: Intact Sensation Left Lower Extremity: Intact Transfers Functional [place] Measure 0=Not Assessed/NA 4=Minimal Assistance 1=Total Assistance 5=Supervision or Setup 2=Maximal Assistance 6=Modified [place] 3=Moderate Assistance 7=Complete [place] Transfers (B, C, W/C) (FIM): 4 Scootin Rollin Supine to/from Sit: 4 Sit to/from Stand: 4 Gait Mode of Locomotion: Walk Gait (FIM): 2 Distance: 15 ft with FWW Gait Level of Assist: 4 Gait Persons Needed: 1 Balance Sitting Static: Normal Sitting Dynamic: Good Standing Static: Good Standing Dynamic: Fair Assessment/Needs Cassandra appears tired and weak this afternoon. She moves with good coordination and should be able to regain independent mobility relatively quickly. She will benefit from PT for exercises and gait to regain PLOF. Rehab Potential: Good Equipment Needs FWW PT Halfway Goals Calculation Reviewer Goals PT Calculation Reviewer Goals Time Frame: Nov 14, 2016 Transfers (B,C,W/C) (FIM): 6 Gait (FIM): 3 Gait distance (FIM): 3=150 ft Distance: 150 ft. Gait Level of Assist: 5 Gait Assistive Device: FWW, Cane Single Point PT Plan Treatment/Plan Treatment Plan: Continue Plan of Care Treatment Plan: Bed Mobility, Gait, Therapeutic Exercise, Transfers Treatment Duration: Nov 14, 2016 # of days/week 5 Visits Per Week: 11 Minutes/Day (M-F): 20 Minutes/Day (Sat/Swain): 20 Pt/Family Agrees w/Plan: Yes Safety Risks/Education Patient Education: Gait Training Teaching Recipient: Patient Use of FWW Discharge Recommendations Therapy D/C Recommendations: Home w/ Family Support Equpiment Recommendations-D/C: Front Wheeled Walker Time/GCodes Time In: 310 Time Out: 335 Total Billed Treatment Time: 25 Total Billed Treatment Visit, Brandyn Lam Codes Necessary: IVETH Gregory PT Nov 07, 2016 15:55
[2016-11-07] MEDS: ATORVASTATIN 80 MG (LIPITOR) TABLET PO SCH (22:35)
[2016-11-08] VITALS: BP 116/49
[2016-11-08 04:00] VITALS: BP 120/53
[2016-11-08 04:24] LABS: BASOPHILS % (AUTO) 0 % (0-10); EOSINOPHILS % (AUTO) 0 % (0-10); LYMPHOCYTES # (AUTO) 1.6 X 10^3 (1.0-4.0); LYMPHOCYTES % (AUTO) 19 % (12-44); MEAN CORPUSCULAR HEMOGLOBIN 30 PG (25-34); MEAN CORPUSCULAR HGB CONC 35 G/DL (32-36); MEAN CORPUSCULAR VOLUME 87 FL (80-99); MEAN PLATELET VOLUME 9.7 FL (7.4-10.4); MONOCYTES # (AUTO) 1.1 X 10^3 (0.0-1.0); MONOCYTES % (AUTO) 13 % (0-12); NEUTROPHILS # (AUTO) 5.9 X 10^3 (1.8-7.8); NEUTROPHILS % (AUTO) 68 % (42-75); PLATELET COUNT 178 10^3/uL (130-400); RED BLOOD COUNT 3.55 10^6/uL (4.35-5.85); RED CELL DISTRIBUTION WIDTH 14.6 % (10.0-14.5); WHITE BLOOD COUNT 8.6 10^3/uL (4.3-11.0)
[2016-11-08 04:45] LABS: ANION GAP 11 MMOL/L (5-14); BLOOD UREA NITROGEN 38 MG/DL (7-18); BUN/CREATININE RATIO 44; CALCIUM 8.4 MG/DL (8.5-10.1); CARBON DIOXIDE 22 MMOL/L (21-32); CHLORIDE 103 MMOL/L (98-107); CREATININE SERUM 0.87 MG/DL (0.60-1.30); GFR ESTIMATED > 60; GLUCOSE 62 MG/DL (70-105); MAGNESIUM 1.6 MG/DL (1.8-2.4); PHOSPHORUS 3.4 MG/DL (2.3-4.7); SODIUM 136 MMOL/L (135-145)
[2016-11-08] MEDS: inSUlin (REGULAR) HUMAN 1 UNIT/0.01 ML (CHARGE PER UNIT) SC SCH ×4 (06:00→21:00)
[2016-11-08] MEDS: MULTIVIT W/MINERALS TAB (THERAGRAN M) PO SCH (06:39)
[2016-11-08] MEDS: PANTOPRAZOLE 20 MG TABLET (PROTONIX) PO SCH (06:39)
--- NOTE | 2016-11-08 07:33 | Pulmonary Progress Note ---
Subjective Subjective/Events-last exam S/P cath found to have severe CAD. Exam Exam Vital Signs Date Time Temp Pulse Resp B/P Pulse Ox O2 Delivery O2 Flow Rate FiO2 11/08/16 04:00 98.4 62 18 120/53 92 Room Air 11/08/16 01:00 62 11/08/16 00:00 96.8 64 20 116/49 94 Room Air 11/07/16 21:00 Room Air 11/07/16 20:00 97.5 56 20 120/56 95 Room Air 11/07/16 19:00 63 11/07/16 15:52 97.1 59 16 121/52 96 Room Air 11/07/16 13:15 66 94 Room Air 11/07/16 13:00 67 11/07/16 13:00 67 117/55 93 Room Air 11/07/16 12:45 129/54 Room Air 11/07/16 12:30 120/72 Room Air 11/07/16 12:15 70 122/60 91 Room Air 11/07/16 12:00 71 141/56 94 Room Air 11/07/16 11:45 98.0 63 150/66 90 Room Air 11/07/16 11:30 60 142/60 92 Room Air 11/07/16 11:15 63 147/64 93 Room Air 11/07/16 11:00 67 146/61 89 Room Air 11/07/16 10:45 65 133/68 92 Room Air 11/07/16 10:30 138/54 Room Air 11/07/16 10:15 66 132/117 94 Room Air 11/07/16 10:00 148/111 Room Air 11/07/16 09:45 148/59 Room Air 11/07/16 09:30 66 168/68 94 Room Air 11/07/16 09:15 66 163/57 89 Room Air 11/07/16 09:00 Room Air 11/07/16 09:00 97.0 154/60 Room Air I & O 11/08/16 07:00 Intake Total 1350 ml Output Total 850 ml Balance 500 ml General Appearance: No Apparent Distress WD/WN Chronically ill Obese HEENT: PERRL/EOMI Normal ENT Inspection Pharynx Normal Neck: Full Range of Motion Normal Inspection Non Tender Supple Carotid Bruit Respiratory: Chest Non Tender Lungs Clear Normal Breath Sounds No Accessory Muscle Use No Respiratory Distress Cardiovascular: Regular Rate, Rhythm No Edema No Gallop No JVD No Murmur Normal Peripheral Pulses Capillary Refill: Less Than 3 Seconds Gastrointestinal: normal bowel sounds non tender soft Extremity: Normal Capillary Refill Normal Inspection Normal Range of Motion Non Tender No Calf Tenderness No Pedal Edema Neurologic/Psychiatric: Alert Oriented x3 No Motor/Sensory Deficits Normal Mood/Affect Skin: Normal Color Warm/Dry Lymphatic: No Adenopathy Results Lab Laboratory Tests 11/06/16 19:35 11/07/16 03:51 11/08/16 04:00 Assessment/Plan Assessment/Plan NSTEMI s/p cath -Pt found to have severe CAD -Cardiology recommends medical management Electrolyte abnormality -replace I am going to sign off pt is cardiac step down status. Clinical Quality Measures DVT/VTE Risk/Contraindication: Risk Factor Score Per Nursin RFS Level Per Nursing on Admit: 4+=Very High DEIRDRE LOPES DO Nov 08, 2016 07:33
[2016-11-08] MEDS: ONDANSETRON 4 MG/2 ML (SDV) Z0FRAN IV PRN ×2 (07:41→18:19)
--- NOTE | 2016-11-08 07:50 | Cardiology Progress Note ---
Subjective Subjective/Events-last exam patient is sitting in a chair, complaining of nausea, denied any chest pain. Review of Systems General: No Chills, No Night Sweats, No Fatigue, No Malaise, No Appetite, No Other HEENT: No Head Aches, No Visual Changes, No Eye Pain, No Ear Pain, No Dysphasia , No Sinus Congestion, No Post Nasal Drip, No Sore Throat, No Other Pulmonary: No Dyspnea, No Cough, No Pleuritic Chest Pain, No Other Cardiovascular: No: Chest Pain, Edema, Lt Headedness, Orthopnea, Other, Palpitations, Paroxysmal Noc. Dyspnea Gastrointestinal: : NauseaNo: Abdominal Pain, Constipation, Diarrhea, Hematochezia, Melena, Other, Vomiting Objective-Cardiology Exam Last Set of Vital Signs Vital Signs 11/08/16 04:00 Temp 98.4 Pulse 62 Resp 18 B/P 120/53 Pulse Ox 92 O2 Delivery Room Air Capillary Refill : Less Than 3 Seconds I&O Intake and Output 11/08/16 00:00 Intake Total 1250 ml Output Total 950 ml Balance 300 ml Intake Oral 300 ml IV Total 950 ml Output Urine Total 950 ml # Bowel Movements 1 General: Alert, Oriented X3, Cooperative HEENT: Atraumatic, PERRLA Neck: Supple, No JVD, No Thyromegaly Lungs: Clear to Auscultation, Normal Air Movement Heart: Regular Rate, Normal S1, Normal S2, No Murmurs Abdomen: Normal Bowel Sounds, Soft, No Tenderness, No Hepatosplenomegaly, No Masses Extremities: No Clubbing, No Cyanosis, No Edema, Normal Pulses, No Tenderness/ Swelling Skin: No Rashes, No Breakdown, No Significant Lesion Neuro: Normal Gait, Normal Speech, Strength at 5/5 X4 Ext, Normal Tone, Sensation Intact Psych/Mental Status: Mental Status NL, Mood NL Results Lab Laboratory Tests 11/08/16 04:00 A/P-Cardiology Admission Diagnosis non-ST elevation myocardial infarctions Coronary artery disease Hypertension Hyperlipidemia Assessment/Plan Non-ST elevation myocardial infarction, cardiac catheterization showed extensive coronary artery disease, medical therapy is recommended no intervention as were entered Nausea, loss of appetite, BMI is 36, consider EGD evaluation, management per primary care physician Coronary artery disease, history of CABG 3 in 1996 with vein graft to diagonal , vein graft to OM 2 and FOX to LAD. Most recent cardiac catheterization August 2012 and was referred to Dr. Garnica for possible redo CABG, however it was deemed patient is not a good surgical candidate and vessels are very small and recommended continuation of medical management, I repeated cardiac catheterization which showed worsening of her coronary artery disease, small vessel, inoperable. Medical therapy is recommended Peripheral vascular disease-monitored by heart and vascular care, continue to monitor at this time. No changes are recommended. Carotid artery stenosis with history of bilateral CEA, followed by heart and vascular care, continue to monitor. Renal artery stenosis-history of stent to right renal artery in June 2012, followed by heart and vascular care. Hypertension, continue to monitor blood pressure Hyperlipidemia, continue to monitor lipids Diabetes mellitus, followed by primary care physician. Ultra-rapid Plavix metabolizer Obesity, BMI is 36. Patient was educated on weight loss. Clinical Quality Measures DVT/VTE Risk/Contraindication: Risk Factor Score Per Nursin RFS Level Per Nursing on Admit: 4+=Very High CITLALLI BEASLEY MD Nov 08, 2016 07:50
[2016-11-08 08:00] VITALS: BP 118/54
--- NOTE | 2016-11-08 08:03 | CARDIAC CATHETERIZATION ---
PROCEDURE PHYSICIAN: CITLALLI BEASLEY DATE OF PROCEDURE: 11/07/2016 REFERRING PHYSICIAN: Dr. Patel BRIEF HISTORY: Mrs. Caruso is a 76-year-old lady with extensive coronary artery disease, came in with non-ST elevation myocardial infarction. She was scheduled for cardiac catheterization. PROCEDURE NOTE: After explaining the procedure to the patient, all pros and cons were explained. All questions were answered. The patient was prepped in a sterile fashion. Local anesthesia applied to right groin. 6-Serbian sheath was placed in the right femoral artery. Combination of right and left Bree catheter were used to access the right and left coronary system. Multiple views were obtained. A Bree right catheter was used to access the vein graft, then advanced in the subclavian artery. Storq wire advanced in the subclavian artery, exchanged into IM catheter, placed in the internal mammary artery and angiogram was done. Then a pigtail catheter advanced to the left ventricular cavity. Left ventriculogram was done. Pullback LV to aorta was done. Abdominal aortogram with bilateral lower extremity runoff was made. Total contrast used for this study is 134 mL. Total radiation was 667 mGy. FINDINGS: ANATOMY: 1. LEFT MAIN CORONARY ARTERY: The left main coronary artery is occluded. 2. RIGHT CORONARY ARTERY: The right coronary artery is totally occluded proximally. Reconstructed by collateral giving collateral filling the left system. 3. VEIN GRAFT ANGIOGRAM: The vein graft is patent to the obtuse marginal branch. It was supposed to be a jump graft but there are multiple collateral fillings the left system. 4. FOX angiogram: The FOX to the LAD is patent with small vessel disease distally. Also filling collaterals to the rest of the left coronary system. 5. LEFT VENTRICULOGRAM: Left ventriculogram was done the right anterior oblique position. The left ventricle is normal in size. Systolic function is preserved. Estimated ejection fraction 60%. 6. ABDOMINAL AORTOGRAM: Abdominal aortogram with bilateral runoff showed heavy atherosclerotic plaques in the abdominal aorta. Bilateral iliac disease moderate to severe. Severe femoral artery stenosis at multiple segments at the right leg with total occlusion at the popliteal artery level. Severe multiple segment stenosis at the left side with also area of total occlusion distal SFA. Reconstructed on the left side with one vessel runoff. CONCLUSION: 1. Severe coronary artery disease with totally occluded [place] arteries. The right coronary artery is totally occluded, small artery, but, reconstructed by collateral and giving collateral to the left system. 2. Patent vein graft to the obtuse marginal branch giving collateral filling the left system. 3. Patent FOX to the LAD, giving collateral to the left system. 4. Normal left ventricular size and systolic function. Estimated ejection fraction 60%. 5. Severe peripheral arterial disease involving the abdominal aorta, SFA and popliteal arteries. DISCUSSION AND RECOMMENDATION: Mrs. Caruso has extensive disease. She was deemed in operable previously. Maximizing medical therapy is recommended at this time. No intervention is warranted. I will add Brilinta to her medication continue maximizing medical therapy, weight loss and exercise is recommended. Job ID: [id number] Dictated Date: 11/07/2016 08:51:50 [employer] Date: 11/08/2016 07:51:58 / richar ENGLISH
[2016-11-08] MEDS: NS IV 1000 ML 1,000 ML IV SCH ×2 (08:33→23:45)
[2016-11-08] MEDS: MAGNESIUM 1 GM/100 ML IVPB 100 ML IV SCH ×2 (08:33→09:33)
--- NOTE | 2016-11-08 08:53 | Diagnostic Imaging Report ---
Portable erect AP chest at 4:26 AM. INDICATION: Myocardial infarction. There is a much better inspiratory effort on this study than on the prior exam of 11/07/2006. Allowing for this technical factor, the heart size is within normal limits and stable when compared to the prior exam. The sternotomy wires and surgical clips noted previously are again visualized and unchanged. The lungs remain clear. There is still no sign of failure, pneumonia, or of a pleural effusion to suggest an acute abnormality. The mediastinum is not widened. The osseous structures are intact. Surgical clips are again seen overlying the right neck. IMPRESSION: Allowing for the improved inspiratory effort on this exam, there has been no significant change when compared with the prior study. There is no evidence for an acute abnormality. Dictated by: Dictated on workstation # [id number]
[2016-11-08] MEDS: HYDROCHLOROTHIAZIDE 25 MG (HCTZ) TAB PO SCH (09:00)
[2016-11-08] MEDS: amLODIPine 10 MG (NORVASC) TAB PO SCH (09:00)
[2016-11-08] MEDS: ISOSORBIDE MONONITRATE 30 MG (IMDUR) TAB PO SCH ×2 (09:00→20:44)
[2016-11-08] MEDS: GLIMEPIRIDE 4 MG (AMARYL) TAB PO SCH ×2 (09:00→20:42)
[2016-11-08] MEDS: ASPIRIN E.C. 81 MG (ECOTRIN) TAB PO SCH (09:00)
[2016-11-08] MEDS: FAMOTIDINE 20 MG (PEPCID) TABLET PO SCH (09:00)
[2016-11-08] MEDS: CARVEDILOL 12.5 MG (COREG) TABLET PO SCH ×2 (09:00→20:43)
[2016-11-08] MEDS: lisINopril 20 MG (ZESTRIL) TAB PO SCH (09:00)
[2016-11-08] MEDS: TICAGRELOR 90 MG TABLET (BRILINTA) PO SCH ×2 (09:00→20:42)
[2016-11-08] MEDS: OMEGA 3 (FISH OIL) 1000 MG CAP PO SCH (09:00)
[2016-11-08] MEDS ORDERED: SCOPOLAMINE 1.5 MG (TRANSDERM-SCOP) PATCH TOP SCH (09:30)
[2016-11-08] MEDS: ENOXAPARIN 40 MG/0.4 ML (LOVENOX) SYR SC SCH (10:14)
[2016-11-08] MEDS: MICONAZOLE 2% POWDER (DESENEX AF) 90 GM TOP SCH ×2 (10:15→20:44)
[2016-11-08] MEDS: POTASSIUM CL 10MEQ/50ML IVPB 50 ML IV SCH ×4 (10:58→14:35)
--- NOTE | 2016-11-08 11:17 | Progress Note-Hospitalist ---
Progress Note HPI/CC on Admission CC: Chest pain HPI: This is a 76yoWF pt of Dr. Marsh that presents with 43 day hx of not feeling well with vague chest pressure. Presented to ER with Troponin of 10. Heart cath performed which revealed multi-vessel disease, and unable to modify progressive and end stage CAD. Pt had previous bypass. inseam leveler: Pt received heart cath today. Pt has major collateral flow. Pt has poor flow to legs. Left groin is moist and yeasty, and RN requests powder. Patient Interview: Pt sleeping during visit. Pt's daughters were visiting pt. Physical exam stable. PCP is Dr. Marsh. Pt lives at home with assistance from son. Scribed by Erick Irvin under the direct supervision of Dr. Gardner. Progress Notes/Assess & Plan Date Seen 11/08/16 Admission Dx/Process Assessment: Non-ST elevation [place] with multivessel disease unable to intervene HTN HLP OP DM Angina GERD Diagonsis/Assessment & Plan Chart Review: No fever Vitals table Nausea continues, so placed scopolamine patch Having difficulty ambulating so ordered PT inseam leveler: RN states that Dr. Villatoro mentioned the possibility of performing a scope? RN states that pt seems to have given up. Patient Interview: Pt is very fatigued. Pt denies having nausea regularly at home. Pt's family member states that pt will need a walker upon DC. Pts family states that pt will not want to go to a rehab or nursing facility, but family is willing to consider this option. Physical exam stable. Lying flat, poor motivation Oriented 3, chronically ill, daughter at bedside Regular rate and rhythm, clear to auscultation bilaterally but minimized due to supine status No edema Laboratory Tests 11/08/16 04:00 Assessment: Non-ST elevation [place] with multivessel disease unable to intervene Recurrent nausea HTN HLP OP DM Angina GERD Hypokalemia For recovery and overall debility likely will require facility Plan: PT Scopolamine patch SS Rehab eval Powder/cream for groin Poor prognosis Scribed by Erick Irvin under the direct supervision of Dr. Gardner. KEISHA GARDNER DO Nov 08, 2016 11:17
--- NOTE | 2016-11-08 11:20 | Physical Therapy Daily Note ---
PT Daily Note-Current Subjective Agrees to PT. Reports she did better today than yesterday. Mental Status Patient Orientation: Person, Place, Time, Situation Transfers Functional [place] Measure 0=Not Assessed/NA 4=Minimal Assistance 1=Total Assistance 5=Supervision or Setup 2=Maximal Assistance 6=Modified [place] 3=Moderate Assistance 7=Complete IndependenceIRFPAI Quality Coding Scale 6 Independent with activity with or without an assistive device 5 Patient requires set up or clean up by helper. Patient completes activity by themselves 4 Supervision or touching assist (CGA). [place] provide cues , steadying assist 3 The helper provides less than half the effort to complete the activity 2 The helper provides more than half the effort to complete the activity 1 Dependent. The helper does all the effort to complete an activity 7 Patient refused to complete or attempt activity 9 The patient did not perform the activity before the current illness or injury 88 Not attempted due to Medical conditions or safety concerns Transfers (B, C, W/C) (FIM): 4 Supine to/from Sit: 4 Sit to/from Stand: 4 Bed to/from Chair: 4 CGa with all functional transfers; pt tranferred on/off the toilet with CGA. Performed maggie care with SBA.. Gait Training Pt ambulated x 125 ft with FWW with SB-CGA with 1 turn. Pt up in chair post treatmeht with needs met. Assessment Current Status: Good Progress Improved functional strength and mobility this date. PT Nursing Home Goals Head Men'S Tennis Coach Goals PT Head Men'S Tennis Coach Goals Time Frame: Nov 14, 2016 Transfers (B,C,W/C) (FIM): 6 Gait (FIM): 3 Gait distance (FIM): 3=150 ft Distance: 150 ft. Gait Level of Assist: 5 Gait Assistive Device: FWW, Cane Single Point PT Plan Problem List Problem List: Activity Tolerance, Functional Strength Treatment/Plan Treatment Plan: Continue Plan of Care Treatment Plan: Bed Mobility, Gait, Therapeutic Exercise, Transfers Treatment Duration: Nov 14, 2016 Visits Per Week: 11 Minutes/Day (M-F): 20 Minutes/Day (Sat/Swain): 20 Safety Risks/Education Patient Education: Safety Issues Teaching Recipient: Patient Teaching Methods: Discussion Response to Teaching: Reinforcement Needed Time/GCodes Time In: 1045 Time Out: 1109 Total Billed Treatment Time: 24 Total Billed Treatment visit FA 10 GT 14 MARY CRUZ PT Nov 08, 2016 11:20
[2016-11-08 12:00] VITALS: BP 132/67
--- NOTE | 2016-11-08 14:57 | Occupational Therapy Eval ---
OT Evaluation-General/PLF Medical Diagnosis Admission Date Nov 06, 2016 at 20:44 Medical Diagnosis: CAD Onset Date: Nov 07, 2016 Therapy Diagnosis Therapy Diagnosis: Decreased self care skills Height/Weight Height (Feet): 5 Height (Inches): 2.00 Weight (Pounds): 198 Weight (Ounces): 1.6 Precautions Precautions/Isolations: Fall Prevention, Standard Precautions Safety Interventions: None Weight Bear Status Weight Bearing Restriction: Weight Bearing/Tolerated Referral Physician: Jorge Medical History Pertinent Medical History: CABG, CAD, COPD, DM, GERD, HTN Additional Medical History High cholesterol, Reviewed History: Yes Social History Home: Single Level Current Living Status: Children (son who works health services information specialist) Entry Into Home: Ramp ADL-Prior Level of Function ADL PLOF Comments Pt reports being independent prior to admission. Was using a cane for mobility. Pt states she did some cooking, but rarely does house cleaning. DME/Equipment: Tub/Shower Drive Self: No OT Current Status Subjective Pt sitting EOB after working with PT, agrees to therapy. Pt has no c/o pain. Mental Status/Objective Patient Orientation: Person, Place Attachments: IV Current Glasses/Contacts: Yes Hearing Aids: No Dentures/Partials: Yes Hand Dominance: Right Upper Extremity ROM Grossly WFL Upper Extremity Coordination Intact Upper Extremity Sensation Intact per pt report Upper Extremity Strength Grossly 4/5 bilateral UE ADL-Treatment ADL-Current Pt sitting EOB after working with PT. Pt participated in UE assessment while seated. Pt demonstrated ability to doff/don socks with SBA while seated EOB. Pt sit to stand from EOB with SBA. Pt stood with supervision using FWW for balance. Pt requests to remain seated EOB to eat popsicle after session. Needs met and son and daughter present after session. Daughter reports pt will be moving to 4th floor soon. Functional [place] Measure 0=Not Assessed/NA 4=Minimal Assistance 1=Total Assistance 5=Supervision or Setup 2=Maximal Assistance 6=Modified [place] 3=Moderate Assistance 7=Complete IndependenceIRFPAI Quality Coding Scale 6 Independent with activity with or without an assistive device 5 Patient requires set up or clean up by helper. Patient completes activity by themselves 4 Supervision or touching assist (CGA). [place] provide cues , steadying assist 3 The helper provides less than half the effort to complete the activity 2 The helper provides more than half the effort to complete the activity 1 Dependent. The helper does all the effort to complete an activity 7 Patient refused to complete or attempt activity 9 The patient did not perform the activity before the current illness or injury 88 Not attempted due to Medical conditions or safety concerns Education OT Patient Education: Rehab process Teaching Recipient: Patient Teaching Methods: Discussion Response to Teaching: Verbalize Understanding OT Short Term Goals Short Term Goals 1=Demonstrate adherence to instructed precautions during ADL tasks. 2=Patient will verbalize/demonstrate understanding of assistive devices/ modifications for ADL. 3=Patient will improve strength/tolerance for activity to enable patient to perform ADL's. OT Penitentiary Goals Penitentiary Goals Time Frame: Nov 15, 2016 Eating (FIM): 6 Grooming(FIM): 6 Bathing(FIM): 5 Upper Body Dressing(FIM): 6 Lower Body Dressing(FIM): 5 Toileting(FIM): 6 Toilet/Commode Transfer(FIM): 6 Additional Goals: 1-Demonstrate ADL Tasks, 2-Verbalize Understanding, 3- ImproveStrength/Leopoldo 1=Demonstrate adherence to instructed precautions during ADL tasks. 2=Patient will verbalize/demonstrate understanding of assistive devices/ modifications for ADL. 3=Patient will improve strength/tolerance for activity to enable patient to perform ADL's. OT Education/Plan Problem List/Assessment Assessment: Decreased Activ Tolerance, Decreased UE Strength, Dependent Transfers, Impaired Self-Care Skills Pt to benefit from skilled OT intervention for ADL training, transfers, strengthening, and home safety education to maximize level of function and allow safe return home with family support. Discharge Recommendations Plan/Recommendations: Continue POC Treatment Plan/Plan of Care Treatment,Training & Education: Yes Patient would benefit from OT for education, treatment and training to promote independence in ADL's, mobility, safety and/or upper extremity function for ADL' s. Plan of Care: ADL Retraining, Functional Mobility, UE Funct Exercise/Act Treatment Duration: Nov 15, 2016 # of days/week 5 Visits Per Week: 5 Agreement: Yes Rehab Potential: Good Time/GCodes Start Time: 14:30 Stop Time: 14:45 Total Time Billed (hr/min): 15 Billed Treatment Time 1 visit, SINDI(15minutes) PRESTON MONTANO OT Nov 08, 2016 14:57
--- NOTE | 2016-11-08 15:55 | Physical Therapy Daily Note ---
PT Daily Note-Current Subjective Agreeable to PT. Mental Status Patient Orientation: Person, Place, Time, Situation Transfers Functional [place] Measure 0=Not Assessed/NA 4=Minimal Assistance 1=Total Assistance 5=Supervision or Setup 2=Maximal Assistance 6=Modified [place] 3=Moderate Assistance 7=Complete IndependenceIRFPAI Quality Coding Scale 6 Independent with activity with or without an assistive device 5 Patient requires set up or clean up by helper. Patient completes activity by themselves 4 Supervision or touching assist (CGA). [place] provide cues , steadying assist 3 The helper provides less than half the effort to complete the activity 2 The helper provides more than half the effort to complete the activity 1 Dependent. The helper does all the effort to complete an activity 7 Patient refused to complete or attempt activity 9 The patient did not perform the activity before the current illness or injury 88 Not attempted due to Medical conditions or safety concerns Pt transferred sup to sit EOB with min assist and skilled cues for sequencing. sit to stand with cues for hand placement and CGA. Stand to sit with cues for hand placement and safety. Gait Training Gt training x 175 ft with fWW with CGA. Pt seated EOB post treatment with OT present. Assessment Current Status: Good Progress strength and mobility progressing. PT [facility] Goals Line Operator Goals PT [facility] Goals Time Frame: Nov 14, 2016 Transfers (B,C,W/C) (FIM): 6 Gait (FIM): 3 Gait distance (FIM): 3=150 ft Distance: 150 ft. Gait Level of Assist: 5 Gait Assistive Device: FWW, Cane Single Point PT Plan Problem List Problem List: Activity Tolerance, Functional Strength, Safety Treatment/Plan Treatment Plan: Continue Plan of Care Treatment Plan: Bed Mobility, Gait, Therapeutic Exercise, Transfers Treatment Duration: Nov 14, 2016 Visits Per Week: 11 Minutes/Day (M-F): 20 Minutes/Day (Sat/Swain): 20 Safety Risks/Education Patient Education: Transfer Techniques, Safety Issues Teaching Recipient: Patient Teaching Methods: Demonstration, Discussion Response to Teaching: Reinforcement Needed Time/GCodes Time In: 1425 Time Out: 1440 Total Billed Treatment Time: 15 Total Billed Treatment visit GT 15 MARY CRUZ PT Nov 08, 2016 15:55
[2016-11-08 16:30] VITALS: BP 159/85
[2016-11-08 20:35] VITALS: BP 140/68
[2016-11-08] MEDS: ATORVASTATIN 80 MG (LIPITOR) TABLET PO SCH (20:43)
[2016-11-09] VITALS: BP 113/64
[2016-11-09 04:00] VITALS: BP 102/69
[2016-11-09] MEDS: MULTIVIT W/MINERALS TAB (THERAGRAN M) PO SCH (06:00)
[2016-11-09] MEDS: PANTOPRAZOLE 20 MG TABLET (PROTONIX) PO SCH (06:00)
[2016-11-09] MEDS: ONDANSETRON 4 MG/2 ML (SDV) Z0FRAN IV PRN (07:02)
--- NOTE | 2016-11-09 07:14 | Diagnostic Imaging Report ---
INDICATION: Chest pain. Portable chest 4:55 AM FINDINGS: There are postop changes from CABG surgery. Heart size and pulmonary vascularity are normal. Lungs are clear. There are no effusions or pneumothoraces. IMPRESSION: Negative chest. Dictated by: Dictated on workstation # [id number]
[2016-11-09 07:45] LABS: BASOPHILS % (AUTO) 0 % (0-10); EOSINOPHILS % (AUTO) 0 % (0-10); LYMPHOCYTES # (AUTO) 1.6 X 10^3 (1.0-4.0); LYMPHOCYTES % (AUTO) 23 % (12-44); MEAN CORPUSCULAR HEMOGLOBIN 30 PG (25-34); MEAN CORPUSCULAR HGB CONC 34 G/DL (32-36); MEAN CORPUSCULAR VOLUME 88 FL (80-99); MEAN PLATELET VOLUME 9.6 FL (7.4-10.4); MONOCYTES # (AUTO) 0.9 X 10^3 (0.0-1.0); MONOCYTES % (AUTO) 13 % (0-12); NEUTROPHILS # (AUTO) 4.4 X 10^3 (1.8-7.8); NEUTROPHILS % (AUTO) 63 % (42-75); PLATELET COUNT 180 10^3/uL (130-400); RED BLOOD COUNT 3.52 10^6/uL (4.35-5.85); RED CELL DISTRIBUTION WIDTH 14.6 % (10.0-14.5)
[2016-11-09 08:00] VITALS: BP 150/71
--- NOTE | 2016-11-09 08:15 | Cardiology Progress Note ---
Subjective Subjective/Events-last exam patient is feeling better, denied any chest pain or shortness of breath. Denied any palpitation. Review of Systems General: No Chills, No Night Sweats, No Fatigue, No Malaise, No Appetite, No Other HEENT: No Head Aches, No Visual Changes, No Eye Pain, No Ear Pain, No Dysphasia , No Sinus Congestion, No Post Nasal Drip, No Sore Throat, No Other Pulmonary: No Dyspnea, No Cough, No Pleuritic Chest Pain, No Other Cardiovascular: No: Chest Pain, Edema, Lt Headedness, Orthopnea, Other, Palpitations, Paroxysmal Noc. Dyspnea Objective-Cardiology Exam Last Set of Vital Signs Vital Signs 11/09/16 04:00 Temp 98.4 Pulse 66 Resp 18 B/P 102/69 Pulse Ox 96 O2 Delivery Room Air Capillary Refill : Less Than 3 Seconds I&O Intake and Output 11/09/16 00:00 Intake Total 2350 ml Output Total 550 ml Balance 1800 ml Intake Oral 400 ml IV Total 1950 ml Output Urine Total 550 ml General: Alert, Oriented X3, Cooperative HEENT: Atraumatic, PERRLA Neck: Supple, No JVD, No Thyromegaly Lungs: Clear to Auscultation, Normal Air Movement Heart: Regular Rate, Normal S1, Normal S2, No Murmurs Abdomen: Normal Bowel Sounds, Soft, No Tenderness, No Hepatosplenomegaly, No Masses Extremities: No Clubbing, No Cyanosis, No Edema, Normal Pulses, No Tenderness/ Swelling Skin: No Rashes, No Breakdown, No Significant Lesion Neuro: Normal Gait, Normal Speech, Strength at 5/5 X4 Ext, Normal Tone, Sensation Intact Psych/Mental Status: Mental Status NL, Mood NL Results Lab Laboratory Tests 11/09/16 07:37 A/P-Cardiology Admission Diagnosis non-ST elevation myocardial infarctions Coronary artery disease Hypertension Hyperlipidemia Assessment/Plan Non-ST elevation myocardial infarction, cardiac catheterization showed extensive coronary artery disease, medical therapy is recommended, reporting improvement. Continue to monitor. Nausea, loss of appetite, BMI is 36, consider EGD evaluation, management per primary care physician Coronary artery disease, history of CABG 3 in 1996 with vein graft to diagonal , vein graft to OM 2 and FOX to LAD. Most recent cardiac catheterization August 2012 and was referred to Dr. Garnica for possible redo CABG, however it was deemed patient is not a good surgical candidate and vessels are very small and recommended continuation of medical management, I repeated cardiac catheterization which showed worsening of her coronary artery disease, small vessel, inoperable. Medical therapy is recommended Peripheral vascular disease-monitored by heart and vascular care, continue to monitor at this time. No changes are recommended. Carotid artery stenosis with history of bilateral CEA, followed by heart and vascular care, continue to monitor. Renal artery stenosis-history of stent to right renal artery in June 2012, followed by heart and vascular care. Hypertension, continue to monitor blood pressure Hyperlipidemia, continue to monitor lipids Diabetes mellitus, followed by primary care physician. Ultra-rapid Plavix metabolizer Obesity, BMI is 36. Patient was educated on weight loss. Clinical Quality Measures DVT/VTE Risk/Contraindication: Risk Factor Score Per Nursin RFS Level Per Nursing on Admit: 4+=Very High CITLALLI BEASLEY MD Nov 09, 2016 08:15
[2016-11-09 08:22] LABS: ANION GAP 9 MMOL/L (5-14); BLOOD UREA NITROGEN 20 MG/DL (7-18); BUN/CREATININE RATIO 26; CALCIUM 8.1 MG/DL (8.5-10.1); CARBON DIOXIDE 24 MMOL/L (21-32); CHLORIDE 102 MMOL/L (98-107); CREATININE SERUM 0.78 MG/DL (0.60-1.30); GFR ESTIMATED > 60; GLUCOSE 120 MG/DL (70-105); MAGNESIUM 1.9 MG/DL (1.8-2.4); PHOSPHORUS 1.8 MG/DL (2.3-4.7); POTASSIUM 3.4 MMOL/L (3.6-5.0); SODIUM 135 MMOL/L (135-145)
[2016-11-09] MEDS: inSUlin (REGULAR) HUMAN 1 UNIT/0.01 ML (CHARGE PER UNIT) SC SCH (08:26)
[2016-11-09] MEDS: ASPIRIN E.C. 81 MG (ECOTRIN) TAB PO SCH (09:15)
[2016-11-09] MEDS: ENOXAPARIN 40 MG/0.4 ML (LOVENOX) SYR SC SCH (09:15)
[2016-11-09] MEDS: GLIMEPIRIDE 4 MG (AMARYL) TAB PO SCH (09:15)
[2016-11-09] MEDS: amLODIPine 10 MG (NORVASC) TAB PO SCH (09:15)
[2016-11-09] MEDS: TICAGRELOR 90 MG TABLET (BRILINTA) PO SCH (09:15)
[2016-11-09] MEDS: FAMOTIDINE 20 MG (PEPCID) TABLET PO SCH (09:15)
[2016-11-09] MEDS: ISOSORBIDE MONONITRATE 30 MG (IMDUR) TAB PO SCH (09:15)
[2016-11-09] MEDS: HYDROCHLOROTHIAZIDE 25 MG (HCTZ) TAB PO SCH (09:15)
[2016-11-09] MEDS: MICONAZOLE 2% POWDER (DESENEX AF) 90 GM TOP SCH (09:16)
[2016-11-09] MEDS: lisINopril 20 MG (ZESTRIL) TAB PO SCH (09:16)
[2016-11-09] MEDS: CARVEDILOL 12.5 MG (COREG) TABLET PO SCH (09:16)
[2016-11-09] MEDS: OMEGA 3 (FISH OIL) 1000 MG CAP PO SCH (09:16)
[2016-11-09] MEDS ORDERED: TICA90TA PO (10:40)
--- NOTE | 2016-11-09 10:42 | Discharge Summary-Hospitalist ---
Diagnosis/Chief Complaint Date of Admission Nov 06, 2016 at 20:44 Date of Discharge Discharge Date: Nov 09, 2016 Admission Diagnosis Assessment: Non-ST elevation [place] with multivessel disease unable to intervene HTN HLP OP DM Angina GERD Discharge Diagnosis Chart Review: No fever Vitals table Nausea continues, so placed scopolamine patch Having difficulty ambulating so ordered PT tray drier: RN states that Dr. Villatoro mentioned the possibility of performing a scope? RN states that pt seems to have given up. Patient Interview: Pt is very fatigued. Pt denies having nausea regularly at home. Pt's family member states that pt will need a walker upon DC. Pts family states that pt will not want to go to a rehab or nursing facility, but family is willing to consider this option. Physical exam stable. Lying flat, poor motivation Oriented 3, chronically ill, daughter at bedside Regular rate and rhythm, clear to auscultation bilaterally but minimized due to supine status No edema Laboratory Tests 11/08/16 04:00 Assessment: Non-ST elevation [place] with multivessel disease unable to intervene Recurrent nausea HTN HLP OP DM Angina GERD Hypokalemia For recovery and overall debility likely will require facility Plan: PT Scopolamine patch SS Rehab eval Powder/cream for groin Poor prognosis Scribed by Erick Irvin under the direct supervision of Dr. Gardner. Reason Hospital Visit/Course CC: Chest pain HPI: This is a 76yoWF pt of Dr. Marsh that presents with 43 day hx of not feeling well with vague chest pressure. Presented to ER with Troponin of 10. Heart cath performed which revealed multi-vessel disease, and unable to modify progressive and end stage CAD. Pt had previous bypass. tray drier: Pt received heart cath today. Pt has major collateral flow. Pt has poor flow to legs. Left groin is moist and yeasty, and RN requests powder. Patient Interview: Pt sleeping during visit. Pt's daughters were visiting pt. Physical exam stable. PCP is Dr. Marsh. Pt lives at home with assistance from son. Scribed by Erick Irvin under the direct supervision of Dr. Gardner. Note from 11/09/16: Patient doing well and preparing for transfer to rehabilitation Excoriated yeast infection in the abdominal folds requiring miconazole powder Difficult to motivate Daughters pleased with inpatient rehabilitation disposition No fever, vital signs stable, pleasant, oriented 3, flat affect Regular rate and rhythm, clear to auscultation bilaterally No edema Hospital course: Patient had a brief hospital course she was hospitalized for non-ST elevation [place] cardiac catheter performed and showed multivessel disease previous bypass grafts and unable to perform any intervention so she was deemed medically treatment only and since she was so weak and overall debilitated she was placed in inpatient rehabilitation for recovery before discharge home. Discharge Summary Discharge Physical Examination Allergies: Coded Allergies: No Known Drug Allergies (Verified , 06/30/07) Vitals & I&Os Vital Signs Date Time Temp Pulse Resp B/P Pulse Ox O2 Delivery O2 Flow Rate FiO2 11/09/16 08:00 97.1 67 18 150/71 98 Room Air Hospital Course Labs (last 24 hrs) Laboratory Tests 11/08/16 16:11: Glucometer 140H 11/08/16 20:55: Glucometer 116H 11/09/16 07:37: Anion Gap 9, BUN/Creatinine Ratio 26, Basophils # (Auto) 0.0, Basophils (%) ( Auto) 0, Blood Urea Nitrogen 20H, Calcium Level 8.1L, Carbon Dioxide Level 24, Chloride Level 102, Creatinine 0.78, Eosinophils # (Auto) 0.0, Eosinophils (%) ( Auto) 0, Estimat Glomerular Filtration Rate > 60, Glucose Level 120H, Hematocrit 31L, Hemoglobin 10.6L, Lymphocytes # (Auto) 1.6, Lymphocytes (%) ( Auto) 23, Magnesium Level 1.9, Mean Corpuscular Hemoglobin 30, Mean Corpuscular Hemoglobin Concent 34, Mean Corpuscular Volume 88, Mean Platelet Volume 9.6, Monocytes # (Auto) 0.9, Monocytes (%) (Auto) 13H, Neutrophils # (Auto) 4.4, Neutrophils (%) (Auto) 63, Phosphorus Level 1.8L, Platelet Count 180, Potassium Level 3.4L, Red Blood Count 3.52L, Red Cell Distribution Width 14.6H, Sodium Level 135, White Blood Count 7.0 Pending Labs Laboratory Tests 11/09/16 07:37: Anion Gap 9, BUN/Creatinine Ratio 26, Basophils # (Auto) 0.0, Basophils (%) ( Auto) 0, Blood Urea Nitrogen 20, Calcium Level 8.1, Carbon Dioxide Level 24, Chloride Level 102, Creatinine 0.78, Eosinophils # (Auto) 0.0, Eosinophils (%) ( Auto) 0, Estimat Glomerular Filtration Rate > 60, Glucose Level 120, Hematocrit 31, Hemoglobin 10.6, Lymphocytes # (Auto) 1.6, Lymphocytes (%) (Auto) 23, Magnesium Level 1.9, Mean Corpuscular Hemoglobin 30, Mean Corpuscular Hemoglobin Concent 34, Mean Corpuscular Volume 88, Mean Platelet Volume 9.6, Monocytes # (Auto) 0.9, Monocytes (%) (Auto) 13, Neutrophils # (Auto) 4.4, Neutrophils (%) (Auto) 63, Phosphorus Level 1.8, Platelet Count 180, Potassium Level 3.4, Red Blood Count 3.52, Red Cell Distribution Width 14.6, Sodium Level 135, White Blood Count 7.0 Discharge Home Medications: Active Scripts Active Brilinta (Ticagrelor) 90 Mg Tablet 90 Mg PO BID 30 Days Reported Tramadol HCl 50 Mg Tablet 1-2 Tab PO Q8H PRN Calcium (Calcium Carbonate) 500 Mg Tablet 1,000 Mg PO DAILY Nitrostat (Nitroglycerin) 0.4 Mg Tab.subl 0.4 Mg SL UD PRN Foltanx Rf Capsule (Levomefolate/B6/B12/Algal Oil) 1 Each Capsule 1 Cap PO DAILY Atorvastatin Calcium 80 Mg Tablet 80 Mg PO HS Omeprazole 20 Mg Capsule.dr 20 Mg PO DAILY Glimepiride 4 Mg Tablet 4 Mg PO BID Isosorbide Mononitrate ER (Isosorbide Mononitrate) 30 Mg Tab.er.24h 30 Mg PO BID Metformin HCl 850 Mg Tablet 850 Mg PO DAILY Ranitidine HCl 150 Mg Tablet 150 Mg PO BID Prinivil (Lisinopril) 40 Mg Tablet 40 Mg PO DAILY Centrum Silver Chewable Tablet (Folic Acid/Multivits-Min/Lut) 1 Each Tab.chew 1 Tab PO DAILY Fish Oil 1,000 Mg Cap 3,000 Mg PO DAILY TAKES 3 (1000MG) CAPSULES Low Dose Aspirin (Aspirin) 81 Mg Tablet.dr 81 Mg PO DAILY Hctz (Hydrochlorothiazide) 25 Mg Tab 25 Mg PO DAILY Coreg (Carvedilol) 25 Mg Tablet 25 Mg PO BID Norvasc (Amlodipine Besylate) 10 Mg Tablet 10 Mg PO DAILY Instructions to patient/family Please see electonic discharge instructions given to patient. Clinical Quality Measures DVT/VTE Risk/Contraindication: Risk Factor Score Per Nursin RFS Level Per Nursing on Admit: 4+=Very High KEISHA GARDNER DO Nov 09, 2016 10:41
[2016-11-20] MEDS ORDERED: CLOT15CR6 TP (09:23)
[2016-11-20] MEDS ORDERED: TRAM50TA2 PO (09:23)
== END 2016-11-09 11:30 | DRG 281 ==
LOC: EDUNIT# 19:07 → ER 19:08 → ICU 20:44 → 4TH 11-08 11:25
PROVIDERS: ADMIT Internal Medicine; ATTEND Internal Medicine
PROC: 4A023N7 Measurement of Cardiac Sampling and Pressure, Left Heart, Percutaneous Approach (ICD-10-PCS; principal; 2016-11-07)
PROC: B2111ZZ Fluoroscopy of Multiple Coronary Arteries using Low Osmolar Contrast (ICD-10-PCS; 2016-11-07)
PROC: B2151ZZ Fluoroscopy of Left Heart using Low Osmolar Contrast (ICD-10-PCS; 2016-11-07)
PROC: B41D1ZZ Fluoroscopy of Aorta and Bilateral Lower Extremity Arteries using Low Osmolar Contrast (ICD-10-PCS; 2016-11-07)
PROC: B2121ZZ Fluoroscopy of Single Coronary Artery Bypass Graft using Low Osmolar Contrast (ICD-10-PCS; 2016-11-07)
DX: I21.4 Non-ST elevation (NSTEMI) myocardial infarction (principal); I25.119 Atherosclerotic heart disease of native coronary artery with unspecified angina pectoris; I25.82 Chronic total occlusion of coronary artery; I70.92 Chronic total occlusion of artery of the extremities; I70.203 Unspecified atherosclerosis of native arteries of extremities, bilateral legs; I70.0 Atherosclerosis of aorta; I70.8 Atherosclerosis of other arteries; I10 Essential (primary) hypertension; E78.5 Hyperlipidemia, unspecified; K21.9 Gastro-esophageal reflux disease without esophagitis; E66.9 Obesity, unspecified; Z68.36 Body mass index [BMI] 36.0-36.9, adult; J44.9 Chronic obstructive pulmonary disease, unspecified; B37.2 Candidiasis of skin and nail; E11.9 Type 2 diabetes mellitus without complications; R11.2 Nausea with vomiting, unspecified; R63.0 Anorexia; M81.0 Age-related osteoporosis without current pathological fracture; E87.8 Other disorders of electrolyte and fluid balance, not elsewhere classified; Z95.1 Presence of aortocoronary bypass graft; Z79.84 Long term (current) use of oral hypoglycemic drugs; E87.6 Hypokalemia
CPT/HCPCS: 36415; 71010; 75630; 80048; 80053; 80061; 82550; 82553; 82962; 83690; 83735; 83874; 84100; 84484; 85025; 85610; 85730; 93005; 93459; 96361; 96372; 96374

== ENCOUNTER 2016-11-09 11:20 | Inpatient (IN) | payer MEDICARE, OTHER ==
[~2016-11-09] VITALS: Ht 157.5 cm; Wt 90.5 kg
[~2016-11-09 11:20] MED LIST changes: +ATOR80TA76 PO; +CALC-823 PO; +ISOS30TA3 PO; +LEVO1CAP9 PO; +METF850T2 PO; +NITR0.4T SL; +OMEP20CA12 PO; +RANI150T11 PO; +TICA90TA PO; +TRAM50TA2 PO
--- OUTSIDE RECORDS SUMMARY | 2016-11-09 12:07 | XMS REPORT | Continuity of Care Document ---
Author Author [facility] Organization [facility] Address Unknown Phone Unavailable Allergies Active Description Code Type Severity Reaction Onset Reported/Identified Relationship to Patient Clinical Status Yes No Known Drug Allergies [id number] Drug Allergy Unknown N/ A 06/30/2007 Medications [...] CITLALLI BEASLEY MD Ot R07.89 Procedures Results Test Result Range Complete blood count (CBC) with automated white blood cell (WBC) differential - 11/06/16 19:35 Blood leukocytes automated count (number/volume) 11.5 10*3/ uL 4.3-11.0 Blood erythrocytes automated count (number/volume) 4.43 10*6 /uL 4.35-5.85 Venous blood hemoglobin measurement (mass/volume) 13.4 g/dL 11.5-16.0 Blood hematocrit (volume fraction) 38 % 35-52 Automated erythrocyte mean corpuscular volume 86 [foz_us] 80-99 Automated erythrocyte mean corpuscular hemoglobin (mass per erythrocyte) 30 pg 25-34 Automated erythrocyte mean corpuscular hemoglobin concentration measurement ( mass/volume) 35 g/dL 32-36 Automated erythrocyte distribution width ratio 14.7 % 10.0-14.5 Automated blood platelet count (count/volume) 235 10*3/uL 130-400 Automated blood platelet mean volume measurement 10.5 [foz_ us] 7.4-10.4 Automated blood neutrophils/100 leukocytes 66 % 42-75 Automated blood lymphocytes/100 leukocytes 27 % 12-44 Blood monocytes/100 leukocytes 8 % 0-12 Automated blood eosinophils/100 leukocytes 0 % 0-10 Automated blood basophils/100 leukocytes 0 % 0-10 Blood neutrophils automated count (number/volume) 7.6 10*3 1.8-7.8 Blood lymphocytes automated count (number/volume) 3.0 10*3 1.0-4.0 Blood monocytes automated count (number/volume) 0.9 10*3 0.0-1.0 Automated eosinophil count 0.0 10*3/uL 0.0-0.3 Automated blood basophil count (count/volume) 0.0 10*3/uL 0.0-0.1 Comprehensive metabolic panel - 11/06/16 19:35 Serum or plasma sodium measurement (moles/volume) 134 mmol/ L 135-145 Serum or plasma potassium measurement (moles/volume) 3.8 mmol/L 3.6-5.0 Serum or plasma chloride measurement (moles/volume) 95 mmol/ L 98-107 Carbon dioxide 23 mmol/L 21-32 Serum or plasma anion gap determination (moles/volume) 16 mmol/L 5-14 Serum or plasma urea nitrogen measurement (mass/volume) 29 mg/dL 7-18 Serum or plasma creatinine measurement (mass/volume) 1.22 mg /dL 0.60-1.30 Serum or plasma urea nitrogen/creatinine mass ratio 24 NRG Serum or plasma creatinine measurement with calculation of estimated glomerular filtration rate 43 NRG Serum or plasma glucose measurement (mass/volume) 162 mg/dL 70-105 Serum or plasma calcium measurement (mass/volume) 9.7 mg/dL 8.5-10.1 Serum or plasma total bilirubin measurement (mass/volume) 0.7 mg/dL 0.1-1.0 Serum or plasma alkaline phosphatase measurement (enzymatic activity/volume) 51 U/L 40-136 Serum or plasma aspartate aminotransferase measurement (enzymatic activity/ volume) 80 U/L 5-34 Serum or plasma alanine aminotransferase measurement (enzymatic activity/volume ) 33 U/L 0-55 Serum or plasma protein measurement (mass/volume) 6.9 g/dL 6.4-8.2 Serum or plasma albumin measurement (mass/volume) 4.0 g/dL 3.2-4.5 Serum or plasma troponin i.cardiac measurement (mass/volume) - 11/06/16 19:35 Serum or plasma troponin i.cardiac measurement (mass/volume) 10.08 ng/mL <0.30 Lipase - 11/06/16 19:35 Lipase 11 U/L 8-78 Serum or plasma troponin i.cardiac measurement (mass/volume) - 11/07/16 01:41 Serum or plasma troponin i.cardiac measurement (mass/volume) 8.50 ng/mL <0.30 Complete blood count (CBC) with automated white blood cell (WBC) differential - 11/07/16 03:51 Blood leukocytes automated count (number/volume) 10.7 10*3/ uL 4.3-11.0 Blood erythrocytes automated count (number/volume) 4.23 10*6 /uL 4.35-5.85 Venous blood hemoglobin measurement (mass/volume) 12.7 g/dL 11.5-16.0 Blood hematocrit (volume fraction) 37 % 35-52 Automated erythrocyte mean corpuscular volume 87 [foz_us] 80-99 Automated erythrocyte mean corpuscular hemoglobin (mass per erythrocyte) 30 pg 25-34 Automated erythrocyte mean corpuscular hemoglobin concentration measurement ( mass/volume) 35 g/dL 32-36 Automated erythrocyte distribution width ratio 14.6 % 10.0-14.5 Automated blood platelet count (count/volume) 204 10*3/uL 130-400 Automated blood platelet mean volume measurement 9.9 [foz_us ] 7.4-10.4 Automated blood neutrophils/100 leukocytes 68 % 42-75 Automated blood lymphocytes/100 leukocytes 20 % 12-44 Blood monocytes/100 leukocytes 11 % 0-12 Automated blood eosinophils/100 leukocytes 0 % 0-10 Automated blood basophils/100 leukocytes 0 % 0-10 Blood neutrophils automated count (number/volume) 7.3 10*3 1.8-7.8 Blood lymphocytes automated count (number/volume) 2.2 10*3 1.0-4.0 Blood monocytes automated count (number/volume) 1.2 10*3 0.0-1.0 Automated eosinophil count 0.0 10*3/uL 0.0-0.3 Automated blood basophil count (count/volume) 0.0 10*3/uL 0.0-0.1 Whole blood basic metabolic panel - 11/07/16 03:51 Serum or plasma sodium measurement (moles/volume) 132 mmol/ L 135-145 Serum or plasma potassium measurement (moles/volume) 3.9 mmol/L 3.6-5.0 Serum or plasma chloride measurement (moles/volume) 97 mmol/ L 98-107 Carbon dioxide 21 mmol/L 21-32 Serum or plasma anion gap determination (moles/volume) 14 mmol/L 5-14 Serum or plasma urea nitrogen measurement (mass/volume) 32 mg/dL 7-18 Serum or plasma creatinine measurement (mass/volume) 1.14 mg /dL 0.60-1.30 Serum or plasma urea nitrogen/creatinine mass ratio 28 NRG Serum or plasma creatinine measurement with calculation of estimated glomerular filtration rate 46 NRG Serum or plasma glucose measurement (mass/volume) 160 mg/dL 70-105 Serum or plasma calcium measurement (mass/volume) 8.9 mg/dL 8.5-10.1 Serum or plasma phosphate measurement (mass/volume) - 11/07/16 03:51 Serum or plasma phosphate measurement (mass/volume) 3.6 mg/ dL 2.3-4.7 Magnesium - 11/07/16 03:51 Magnesium 1.9 mg/dL 1.8-2.4 Serum or plasma creatine kinase measurement (enzymatic activity/volume) - 11/07 03:51 Serum or plasma creatine kinase measurement (enzymatic activity/volume) 322 U/L 29-168 Serum or plasma creatine kinase MB measurement (enzymatic activity/volume) - 03:51 Serum or plasma creatine kinase MB measurement (enzymatic activity/volume) 9.7 ng/mL <6.6 Myoglobin, serum - 11/07/16 03:51 Myoglobin, serum 151.8 ng/mL 10.0-92.0 Lipid 1996 panel - 11/07/16 03:51 Serum or plasma triglyceride measurement (mass/volume) 117 mg/dL <150 Serum or plasma cholesterol measurement (mass/volume) 142 mg /dL < 200 Serum or plasma cholesterol in HDL measurement (mass/volume) 33 mg/dL 40-60 Cholesterol in LDL [mass/volume] in serum or plasma by direct assay 85 mg/dL 1-129 Serum or plasma cholesterol in VLDL measurement (mass/volume) 23 mg/dL 5-40 PT panel in platelet poor plasma by coagulation assay - 11/07/16 07:44 Prothrombin time (PT) in platelet poor plasma by coagulation assay 14.2 s 12.2-14.7 INR in platelet poor plasma or blood by coagulation assay 1.1 0.8-1.4 Activated partial thromboplastin time (aPTT) in platelet poor plasma bycoagulation assay - 11/07/16 07:44 Activated partial thromboplastin time (aPTT) in platelet poor plasma bycoagulation assay 34 s 24-35 Capillary blood glucose measurement by glucometer (mass/volume) - 11/07/16 10: 53 Capillary blood glucose measurement by glucometer (mass/volume) 166 mg/dL 70-110 Capillary blood glucose measurement by glucometer (mass/volume) - 11/07/16 16: 05 Capillary blood glucose measurement by glucometer (mass/volume) 203 mg/dL 70-110 Capillary blood glucose measurement by glucometer (mass/volume) - 11/07/16 21: 09 Capillary blood glucose measurement by glucometer (mass/volume) 150 mg/dL 70-110 Complete blood count (CBC) with automated white blood cell (WBC) differential - 11/08/16 04:00 Blood leukocytes automated count (number/volume) 8.6 10*3/ uL 4.3-11.0 Blood erythrocytes automated count (number/volume) 3.55 10*6 /uL 4.35-5.85 Venous blood hemoglobin measurement (mass/volume) 10.8 g/dL 11.5-16.0 Blood hematocrit (volume fraction) 31 % 35-52 Automated erythrocyte mean corpuscular volume 87 [foz_us] 80-99 Automated erythrocyte mean corpuscular hemoglobin (mass per erythrocyte) 30 pg 25-34 Automated erythrocyte mean corpuscular hemoglobin concentration measurement ( mass/volume) 35 g/dL 32-36 Automated erythrocyte distribution width ratio 14.6 % 10.0-14.5 Automated blood platelet count (count/volume) 178 10*3/uL 130-400 Automated blood platelet mean volume measurement 9.7 [foz_us ] 7.4-10.4 Automated blood neutrophils/100 leukocytes 68 % 42-75 Automated blood lymphocytes/100 leukocytes 19 % 12-44 Blood monocytes/100 leukocytes 13 % 0-12 Automated blood eosinophils/100 leukocytes 0 % 0-10 Automated blood basophils/100 leukocytes 0 % 0-10 Blood neutrophils automated count (number/volume) 5.9 10*3 1.8-7.8 Blood lymphocytes automated count (number/volume) 1.6 10*3 1.0-4.0 Blood monocytes automated count (number/volume) 1.1 10*3 0.0-1.0 Automated eosinophil count 0.0 10*3/uL 0.0-0.3 Automated blood basophil count (count/volume) 0.0 10*3/uL 0.0-0.1 Whole blood basic metabolic panel - 11/08/16 04:00 Serum or plasma sodium measurement (moles/volume) 136 mmol/ L 135-145 Serum or plasma potassium measurement (moles/volume) 3.0 mmol/L 3.6-5.0 Serum or plasma chloride measurement (moles/volume) 103 mmol /L 98-107 Carbon dioxide 22 mmol/L 21-32 Serum or plasma anion gap determination (moles/volume) 11 mmol/L 5-14 Serum or plasma urea nitrogen measurement (mass/volume) 38 mg/dL 7-18 Serum or plasma creatinine measurement (mass/volume) 0.87 mg /dL 0.60-1.30 Serum or plasma urea nitrogen/creatinine mass ratio 44 NRG Serum or plasma creatinine measurement with calculation of estimated glomerular filtration rate > NRG Serum or plasma glucose measurement (mass/volume) 62 mg/dL 70-105 Serum or plasma calcium measurement (mass/volume) 8.4 mg/dL 8.5-10.1 Serum or plasma phosphate measurement (mass/volume) - 11/08/16 04:00 Serum or plasma phosphate measurement (mass/volume) 3.4 mg/ dL 2.3-4.7 Magnesium - 11/08/16 04:00 Magnesium 1.6 mg/dL 1.8-2.4 Capillary blood glucose measurement by glucometer (mass/volume) - 11/08/16 06: 21 Capillary blood glucose measurement by glucometer (mass/volume) 104 mg/dL 70-110 Capillary blood glucose measurement by glucometer (mass/volume) - 11/08/16 11: 41 Capillary blood glucose measurement by glucometer (mass/volume) 153 mg/dL 70-110 Capillary blood glucose measurement by glucometer (mass/volume) - 11/08/16 16: 11 Capillary blood glucose measurement by glucometer (mass/volume) 140 mg/dL 70-110 Capillary blood glucose measurement by glucometer (mass/volume) - 11/08/16 20: 55 Capillary blood glucose measurement by glucometer (mass/volume) 116 mg/dL 70-110 Complete blood count (CBC) with automated white blood cell (WBC) differential - 11/09/16 07:37 Blood leukocytes automated count (number/volume) 7.0 10*3/ uL 4.3-11.0 Blood erythrocytes automated count (number/volume) 3.52 10*6 /uL 4.35-5.85 Venous blood hemoglobin measurement (mass/volume) 10.6 g/dL 11.5-16.0 Blood hematocrit (volume fraction) 31 % 35-52 Automated erythrocyte mean corpuscular volume 88 [foz_us] 80-99 Automated erythrocyte mean corpuscular hemoglobin (mass per erythrocyte) 30 pg 25-34 Automated erythrocyte mean corpuscular hemoglobin concentration measurement ( mass/volume) 34 g/dL 32-36 Automated erythrocyte distribution width ratio 14.6 % 10.0-14.5 Automated blood platelet count (count/volume) 180 10*3/uL 130-400 Automated blood platelet mean volume measurement 9.6 [foz_us ] 7.4-10.4 Automated blood neutrophils/100 leukocytes 63 % 42-75 Automated blood lymphocytes/100 leukocytes 23 % 12-44 Blood monocytes/100 leukocytes 13 % 0-12 Automated blood eosinophils/100 leukocytes 0 % 0-10 Automated blood basophils/100 leukocytes 0 % 0-10 Blood neutrophils automated count (number/volume) 4.4 10*3 1.8-7.8 Blood lymphocytes automated count (number/volume) 1.6 10*3 1.0-4.0 Blood monocytes automated count (number/volume) 0.9 10*3 0.0-1.0 Automated eosinophil count 0.0 10*3/uL 0.0-0.3 Automated blood basophil count (count/volume) 0.0 10*3/uL 0.0-0.1 Whole blood basic metabolic panel - 11/09/16 07:37 Serum or plasma sodium measurement (moles/volume) 135 mmol/ L 135-145 Serum or plasma potassium measurement (moles/volume) 3.4 mmol/L 3.6-5.0 Serum or plasma chloride measurement (moles/volume) 102 mmol /L 98-107 Carbon dioxide 24 mmol/L 21-32 Serum or plasma anion gap determination (moles/volume) 9 mmol/L 5-14 Serum or plasma urea nitrogen measurement (mass/volume) 20 mg/dL 7-18 Serum or plasma creatinine measurement (mass/volume) 0.78 mg /dL 0.60-1.30 Serum or plasma urea nitrogen/creatinine mass ratio 26 NRG Serum or plasma creatinine measurement with calculation of estimated glomerular filtration rate > NRG Serum or plasma glucose measurement (mass/volume) 120 mg/dL 70-105 Serum or plasma calcium measurement (mass/volume) 8.1 mg/dL 8.5-10.1 Serum or plasma phosphate measurement (mass/volume) - 11/09/16 07:37 Serum or plasma phosphate measurement (mass/volume) 1.8 mg/ dL 2.3-4.7 Magnesium - 11/09/16 07:37 Magnesium 1.9 mg/dL 1.8-2.4 Encounters ACCT No. Visit Date/Time Discharge Status Pt. Type Provider Facility Loc./Unit Complaint [id number] 11/06/2016 20:44:00 2016 11:30:00 DIS Inpatient KEISHA GARDNER [address] [id number] 01/06/2014 07:34:00 2013 23:59:59 CLS Outpatient [id number] 06/01/2013 09:32:00 2012 23:59:59 CLS Outpatient [id number] 11/09/2016 11:20:00 ACT Inpatient RADHA CERDA MD [facility] [address] NSTEPR [id number] 08/09/2015 10:50:00 ACT Outpatient RAMOS DANGELO, CITLALLI Valadez [facility] CARD
[2016-11-09] MEDS ORDERED: ONDANSETRON 4 MG (ZOFRAN) ORAL DISSOLVE TAB PO PRN (12:15)
[2016-11-09] MEDS ORDERED: NITROGLYCERIN SUBLINGUAL 0.4 MG TAB (NITROSTAT) SL PRN (12:15)
[2016-11-09] MEDS ORDERED: PATIENT MAY USE OWN MEDS, ALL MC SCH (12:30)
--- NOTE | 2016-11-09 12:51 | Physical Therapy Evaluation ---
PT Evaluation-General Medical Diagnosis Admission Date Nov 09, 2016 at 11:20 Medical Diagnosis: CAD, cardiac cath Onset Date: Nov 07, 2016 Therapy Diagnosis Therapy Diagnosis: impaired mobility, endurance, strength Height/Weight Height (Feet): 5 Height (Inches): 2.00 Weight (Pounds): 204 Weight (Ounces): 1.0 Weight Bear Status Location Restriction: LE Bilateral Referral Physician: Parker Reason for Referral: Evaluation/Treatment Medical History Pertinent Medical History: CABG, CAD, COPD, DM, GERD, HTN Current History Has not felt well for the past month. Admitted with nausea. Underwent cardiac cath: multi vessel disease. Reviewed History: Yes Social History Home: Single Level Current Living Status: Children Entry Into Home: Ramp Patient states that her son lives with her but he will be gone during the day at work. Prior/Core FIM Prior Level of Function Functional Burnett Measure 0=Not Assessed/NA 4=Minimal Assistance 1=Total Assistance 5=Supervision or Setup 2=Maximal Assistance 6=Modified Burnett 3=Moderate Assistance 7=Complete Burnett Bed Mobility: 6 Transfers (B,C,W/C) (FIM): 6 Gait: 6 Patient used a single point cane pre morbid. PT Evaluation-Current Subjective Patient on the medical floor ready to transfer to rehab. Patient has no complaints of pain. Pt/Family Goals to be independent at home Objective Patient Orientation: Person, Place, Situation ROM/Strength ROM Lower Extremities WNL except patient does not have full extension of the left knee Strenght Lower Extremities 4/5 gross bilateral lower extremities Neuromuscular (Tone, Coordination, Reflexes) WNL Sensory Vision: Functional Hearing: Functional Sensation Right Lower Extremit: Intact Sensation Left Lower Extremity: Intact Transfers Functional Burnett Measure 0=Not Assessed/NA 4=Minimal Assistance 1=Total Assistance 5=Supervision or Setup 2=Maximal Assistance 6=Modified Burnett 3=Moderate Assistance 7=Complete IndependenceIRFPAI Quality Coding Scale 6 Independent with activity with or without an assistive device 5 Patient requires set up or clean up by helper. Patient completes activity by themselves 4 Supervision or touching assist (CGA). [place] provide cues , steadying assist 3 The helper provides less than half the effort to complete the activity 2 The helper provides more than half the effort to complete the activity 1 Dependent. The helper does all the effort to complete an activity 7 Patient refused to complete or attempt activity 9 The patient did not perform the activity before the current illness or injury 88 Not attempted due to Medical conditions or safety concerns Transfers (B, C, W/C) (FIM): 4 Scootin Rollin Roll Left to Right (QC): 4 Supine to/from Sit: 5 Sit to/from Stand: 4 bed t/f WC(FIM only if WC use): 4 Sit to Lying (QC): 4 Lying to Sitting/Side of Bed(Q: 4 Sit to Stand (QC): 4 Chair/Eeh-av-Tiuvb Xfer(QC): 4 Car Transfer (QC): 88 Patient is SBA for bed mobility and performs transfers with CGA. She does need cues for safety and hand placement. Gait Does the Patient Walk?: Yes Mode of Locomotion: Walk Anticipated Mode of Locomotion: Walk Gait (FIM): 2 Walk 10 feet (QC): 4 Walk 50 ft with 2 Turns(QC): 4 Walk 150 ft (QC): 88 Walking 10ft/uneven surface-QC: 4 Distance: 120' Gait Level of Assist: 4 Gait Persons Needed: 1 Gait Assistive Device: FWW Comments/Gait Description Patient can ambulate 120' with a rolling walker with CGA (including 10' over an uneven surface like carpet and 50' with at least 2 turns of 90 degrees). She does fatigue quickly and needs to sit quickly when tired. Wheelchair Training Does the Pt Use a Wheelchair?: No Stairs Stairs (FIM): 1 #of Steps: 1 Level of Assist: 4 1 Step (curb) (QC): 4 4 Steps (QC): 88 Assistive Device: Walker 12 Steps (QC): 88 Patient can go up and down 1 step using a rolling walker but needs close CGA and instructions for safety and foot placement. Balance Sitting Static: Normal Sitting Dynamic: Normal Standing Static: Fair Standing Dynamic: Fair Picking up an Object (QC): 88 Assessment/Needs Patient has general debility, impaired mobility, and poor endurance, recommend skilled PT intervention for these problems. Rehab Potential: Fair PT Short Term Goals Short Term Goals Time Frame: Nov 16, 2016 Transfers (B,C,W/C) (FIM): 5 Gait (FIM): 4 Gait Distance Comment: 150' Gait Level of Assist: 4 Gait Assistive Device: FWW PT Yield Engineer Goals Fpc Goals PT Fpc Goals Time Frame: Nov 30, 2016 Transfers (B,C,W/C) (FIM): 6 Sit to Lying (QC): 6 Lying-Sitting on Side/Bed(QC): 6 Sit to Stand (QC): 6 Rollin Roll Left to Right (QC): 6 Chair/Uru-kc-Psjme Xfer(QC): 6 Car Transfer (QC): 4 Gait (FIM): 5 Distance: 200' Walk 10 feet (QC): 4 Walk 10ft-Uneven Surface(QC): 4 Walk 50ft with 2 Turns (QC): 4 Walk 150 ft (QC): 4 Gait Level of Assist: 5 Gait Assistive Device: FWW Stairs (FIM): 2 # of Steps: 4 1 Step (curb) (QC): 4 4 Steps (QC): 4 12 Steps (QC): 88 Stairs Level Of Assist: 4 Picking up an Object (QC): 88 PT Plan Problem List Problem List: Activity Tolerance, Functional Strength, Safety, Balance, Gait, Transfer, Bed Mobility, ROM Treatment/Plan Treatment Plan: Continue Plan of Care Treatment Plan: Bed Mobility, Education, Functional Activity Leopoldo, Functional Strength, Group Therapy, Gait, Safety, Therapeutic Exercise, Transfers Treatment Duration: Nov 30, 2016 # of days/week 5-6 Visits Per Week: 10-11 Minutes/Day (M-F): 60-90 Minutes/Day (Sat/Swain): 15-30 Pt/Family Agrees w/Plan: Yes Safety Risks/Education Patient Education: Gait Training, Transfer Techniques, Steps, Correct Positioning, Safety Issues Teaching Recipient: Patient Teaching Methods: Demonstration, Discussion Response to Teaching: Reinforcement Needed Discharge Recommendations Plan Patient will perform bed mobility and transfer training, balance and endurance training, functional strengthening, stair training, gait training, education, to improve functional mobility and independence at home. Therapy D/C Recommendations: Home w/ Family Support Time/GCodes Time In: 1120 Time Out: 1145 Total Billed Treatment Time: 25 Total Billed Treatment 1 visit EVL 15 min GT 10 min WAYNE BURGESS PT Nov 09, 2016 12:51
--- NOTE | 2016-11-09 13:13 | Occupational Therapy Eval ---
OT Evaluation-General/PLF Medical Diagnosis Admission Date Nov 09, 2016 at 11:20 Medical Diagnosis: CAD, cardiac cath Onset Date: Nov 07, 2016 Therapy Diagnosis Therapy Diagnosis: decreased self care skills Height/Weight Height (Feet): 5 Height (Inches): 2.00 Weight (Pounds): 204 Weight (Ounces): 1.0 Weight Bear Status Location Restriction: LE Bilateral Referral Physician: Parker Medical History Pertinent Medical History: CABG, CAD, COPD, DM, GERD, HTN Additional Medical History high cholesterol Reviewed History: Yes Social History Home: Single Level Current Living Status: Children (son- who works during the day) Entry Into Home: Ramp ADL-Prior Level of Function ADL PLOF Comments Pt reports being independent with basic self care and mobility. Was using a cane for mobility. Pt states she is alone during the day while son is at work. Pt does some cooking, but does not clean house. DME/Equipment: Tub/Shower Pt states she currently has a tub/shower, but her family is installing a walk in shower that will have grab bars and a shower seat. Drive Self: No OT Current Status Subjective Pt agreeable to OT this am. No c/o pain. Mental Status/Objective Patient Orientation: Person, Place, Situation Current Glasses/Contacts: Yes Hearing Aids: No Dentures/Partials: Yes Hand Dominance: Right Upper Extremity ROM Grossly WFL Upper Extremity Coordination Intact Upper Extremity Strength Grossly 4/5 bilateral UE ADL-Treatment ADL-Current Pt participated in UE assessment while seated in w/c. Pt states she had a shower this morning prior to transfer to ARU, so bathing was not assessed at this time. Pt washed face and brushed hair with set up. Pt states she soaks her dentures at night and is able to remove/replace dentures without assistance. Pt sit to stand with CGA. Gait to restroom with FWW. Pt demonstrated ability to perform toilet transfer with CGA using grab bar. Pt requests to go to bed after session. Sit to supine with SBA. Pt in bed with needs met and daughter and RN present after session. Functional [place] Measure 0=Not Assessed/NA 4=Minimal Assistance 1=Total Assistance 5=Supervision or Setup 2=Maximal Assistance 6=Modified [place] 3=Moderate Assistance 7=Complete IndependenceIRFPAI Quality Coding Scale 6 Independent with activity with or without an assistive device 5 Patient requires set up or clean up by helper. Patient completes activity by themselves 4 Supervision or touching assist (CGA). [place] provide cues , steadying assist 3 The helper provides less than half the effort to complete the activity 2 The helper provides more than half the effort to complete the activity 1 Dependent. The helper does all the effort to complete an activity 7 Patient refused to complete or attempt activity 9 The patient did not perform the activity before the current illness or injury 88 Not attempted due to Medical conditions or safety concerns Eating (FIM): 5 (Pt reports feeding herself, but states she requires occasional assist to manage containers/packages) Eating (QC): 5 (Set up-by report) Grooming (FIM): 5 Oral Hygiene (QC): 5 Toilet/Commode Transfer (FIM): 4 (CGA) Toilet Transfer (QC): 4 (CGA) Education OT Patient Education: Rehab process Teaching Recipient: Patient Teaching Methods: Discussion Response to Teaching: Verbalize Understanding OT Short Term Goals Short Term Goals Time Frame: Nov 16, 2016 Bathing(FIM): 5 Upper Body Dressing(FIM): 5 Lower Body Dressing(FIM): 5 Toileting(FIM): 5 Shower Transfer(FIM): 4 (CGA) Additional Short Term Goals: 1-Demonstrate ADL Tasks, 2-Verbalize Understanding , 3-ImproveStrength/Leopoldo 1=Demonstrate adherence to instructed precautions during ADL tasks. 2=Patient will verbalize/demonstrate understanding of assistive devices/ modifications for ADL. 3=Patient will improve strength/tolerance for activity to enable patient to perform ADL's. OT Senior Care Goals Medical Reimbursement Specialist Goals Time Frame: Nov 30, 2016 Eating (FIM): 6 Eating (QC): 6 Groomin Oral Hygiene (QC): 6 Bathing(FIM): 5 Shower/Bathe Self (QC): 5 Upper Body Dressing(FIM): 6 Upper Body Dressing (QC): 6 Lower Body Dressing(FIM): 6 Lower Body Dressing (QC): 6 On/Off Footwear (QC): 6 Toileting(FIM): 6 Toileting Hygiene (QC): 6 Toilet/Commode Transfer(FIM): 6 Toilet/Commode Transfer (QC): 6 Shower Transfer(FIM): 5 Additional Goals: 1-Demonstrate ADL Tasks, 2-Verbalize Understanding, 3- ImproveStrength/Leopoldo 1=Demonstrate adherence to instructed precautions during ADL tasks. 2=Patient will verbalize/demonstrate understanding of assistive devices/ modifications for ADL. 3=Patient will improve strength/tolerance for activity to enable patient to perform ADL's. Goals established to promote increased functional independence and allow safe return home. OT Education/Plan Problem List/Assessment Assessment: Decreased Activ Tolerance, Decreased UE Strength, Dependent Transfers, Impaired Self-Care Skills Pt to benefit from skilled OT intervention for ADL training, transfers, strengthening, and home safety education to maximize level of function and allow safe return home with family support. Discharge Recommendations Plan/Recommendations: Continue POC Treatment Plan/Plan of Care Treatment,Training & Education: Yes Patient would benefit from OT for education, treatment and training to promote independence in ADL's, mobility, safety and/or upper extremity function for ADL' s. Plan of Care: ADL Retraining, Functional Mobility, Group Exercise/Act as Ind, UE Funct Exercise/Act Treatment Duration: Nov 30, 2016 # of days/week 5-6 Minutes/Day (M-F): 60-90 Minutes/Day (Sat/Swain): PRN Agreement: Yes Rehab Potential: Fair Time/GCodes Start Time: 11:45 Stop Time: 12:10 Total Time Billed (hr/min): 25 Billed Treatment Time 1 visit, EVL(10minutes), ADL(15minutes) PRESTON MONTANO OT Nov 09, 2016 13:13
--- NOTE | 2016-11-09 13:15 | ST Cognitive Linguistic Eval ---
Speech Evaluation-General Medical Diagnosis CAD, cardiac cath Onset Date: Nov 07, 2016 Therapy Diagnosis Therapy Diagnosis: Cognitive Function WNL Referral Referring Physician: Dr. Nitin Canales Cognitive Screen Medical History Pertinent Medical History: CABG, CAD, COPD, DM, GERD, HTN Reviewed History: Yes Social History Current Living Status: Children Speech PLF-Current Status Prior Level of Function The patient denied cognitive challenges prior to admission. Subjective The patient was recently admitted to [facility] following a SD. The patient greeted the clinician appropriately and agreed to participate in the cognitive assessment on this date. Language Eval: Auditory Comprehends Simple Yes/No Ques: Functional Indent/Objects Multiple Kim: Functional Ident/Pics in Multiple Kim: Functional Follows 1-Step Commands: Functional Follows Complex Directions: Functional Follows General Conversations: Functional Language Eval: Verbal Language Completes Spontaneous Greeting: Functional Produces Auto, Serial Info: Functional Imitates Simple Words/Phrases: Functional Word Finding: Functional Requests Basic Needs: Functional States Basic Personal Info: Functional Expresses Complex Ideas: Functional Objective Cognitive Domain Attention: WNL Memory: WNL Problem Solving: Functional Executive Functions: WNL Objective Impression The patient demonstrated cognitive linguistic functions within normal limits for completion of ADL's. Communication/Social Cognition Comprehension: 6 Expression: 6 Social Interaction: 6 Problem Solvin Memory: 6 Speech Patient Assess Expression of Ideas/Wants: Expression (4) Understanding [place] Content: Understands (4) Brief Interview-Mental Status: Yes Repetition of Three Words: Three (3) Temporal Orientation: Year: Correct (3) Temporal Orientation: Month: Accurate within 5 days(2) Temporal Orientation: Day: Correct (1) Recall : Wear to say "Sock": Yes, no cue required (2) Recall : Color: Yes, no cue required (2) Recall : Bed: Yes, no cue required (2) Speech-Plan Treatment Plan Speech Therapy Treatment Plan: Discontinue ST Evaluation, only. Rehab Potential: Fair Safety Risks/Education Teaching Recipient: Patient, Family Teaching Methods: Discussion Response to Teaching: Verbalize Understanding Education Topics Provided: Plan of Care Time Speech Therapy Time In: 12:11 Speech Therapy Time Out: 12:26 Total Billed Time: 15 Billed Treatment Time 1, ALEJANDRINATALON MACY ALMAGUER Nov 09, 2016 13:15
--- NOTE | 2016-11-09 14:57 | Occupational Ther Daily Note ---
OT Current Status-Daily Note Subjective Pt agrees to treatment this pm. Mental Status/Objective Functional [place] Measure 0=Not Assessed/NA 4=Minimal Assistance 1=Total Assistance 5=Supervision or Setup 2=Maximal Assistance 6=Modified [place] 3=Moderate Assistance 7=Complete [place] ADL-Treatment Pt sitting in commons area after group therapy. Gait to room with FWW with slow pace. Pt demonstrated ability to doff/don button up shirt with SBA and increased time. Pt doffed/donned underwear with CGA for standing balance during pant hike. Uses FWW for balance. Pt doffed/donned socks while seated in w/c. Functional [place] Measure 0=Not Assessed/NA 4=Minimal Assistance 1=Total Assistance 5=Supervision or Setup 2=Maximal Assistance 6=Modified [place] 3=Moderate Assistance 7=Complete IndependenceIRFPAI Quality Coding Scale 6 Independent with activity with or without an assistive device 5 Patient requires set up or clean up by helper. Patient completes activity by themselves 4 Supervision or touching assist (CGA). [place] provide cues , steadying assist 3 The helper provides less than half the effort to complete the activity 2 The helper provides more than half the effort to complete the activity 1 Dependent. The helper does all the effort to complete an activity 7 Patient refused to complete or attempt activity 9 The patient did not perform the activity before the current illness or injury 88 Not attempted due to Medical conditions or safety concerns Upper Body (FIM): 5 Upper Body Dressing (QC): 4 Lower Body Dressing (FIM): 4 (CGA) Lower Body Dressing (QC): 4 (CGA) On/Off Footwear (QC): 5 Other Treatment Gait to therapy gym with FWW, slow pace. Pt performed bilateral UE activity to promote increased strength and activity tolerance. Pt completed shoulder flexion , forward press, and biceps curls x15 reps with dowel becca, no extra resistance. Rest breaks between exercises. Pt completed graded clothespin activity with bilateral hands using gross grasp to increase compensation programs manager strength. Pt sitting in therapy gym with PT present for treatment after session. OT Short Term Goals Short Term Goals Time Frame: Nov 16, 2016 Bathing(FIM): 5 Upper Body Dressing(FIM): 5 Lower Body Dressing(FIM): 5 Toileting(FIM): 5 Shower Transfer(FIM): 4 (CGA) Additional Short Term Goals: 1-Demonstrate ADL Tasks, 2-Verbalize Understanding , 3-ImproveStrength/Leopoldo 1=Demonstrate adherence to instructed precautions during ADL tasks. 2=Patient will verbalize/demonstrate understanding of assistive devices/ modifications for ADL. 3=Patient will improve strength/tolerance for activity to enable patient to perform ADL's. OT Stonecutter Apprentice Hand Goals Senior Living Goals Time Frame: Nov 30, 2016 Eating (FIM): 6 Eating (QC): 6 Groomin Oral Hygiene (QC): 6 Bathing(FIM): 5 Shower/Bathe Self (QC): 5 Upper Body Dressing(FIM): 6 Upper Body Dressing (QC): 6 Lower Body Dressing(FIM): 6 Lower Body Dressing (QC): 6 On/Off Footwear (QC): 6 Toileting(FIM): 6 Toileting Hygiene (QC): 6 Toilet/Commode Transfer(FIM): 6 Toilet/Commode Transfer (QC): 6 Shower Transfer(FIM): 5 Additional Goals: 1-Demonstrate ADL Tasks, 2-Verbalize Understanding, 3- ImproveStrength/Leopoldo 1=Demonstrate adherence to instructed precautions during ADL tasks. 2=Patient will verbalize/demonstrate understanding of assistive devices/ modifications for ADL. 3=Patient will improve strength/tolerance for activity to enable patient to perform ADL's. OT Education/Plan Problem List/Assessment Pt to benefit from skilled OT intervention for ADL training, transfers, strengthening, and home safety education to maximize level of function and allow safe return home with family support. Discharge Recommendations Plan/Recommendations: Continue POC Treatment Plan/Plan of Care Patient would benefit from OT for education, treatment and training to promote independence in ADL's, mobility, safety and/or upper extremity function for ADL' s. Plan of Care: ADL Retraining, Functional Mobility, Group Exercise/Act as Ind, UE Funct Exercise/Act Treatment Duration: Nov 30, 2016 Minutes/Day (M-F): 60-90 Minutes/Day (Sat/Swain): PRN Agreement: Yes Rehab Potential: Fair Time/GCodes Start Time: 14:00 Stop Time: 14:35 Total Time Billed (hr/min): 35 Billed Treatment Time 1 visit, ADL(20minutes), EX(15minutes) PRESTON MONTANO OT Nov 09, 2016 14:57
--- NOTE | 2016-11-09 15:25 | Physical Therapy Daily Note ---
PT Daily Note-Current Subjective Patient in therapy gym, just got through with OT. Patient has no complaints of pain. Appearance Patient in bed post tx with nurse call, phone, tray, son in room, all needs met. Mental Status Patient Orientation: Normal For Age Transfers Functional [place] Measure 0=Not Assessed/NA 4=Minimal Assistance 1=Total Assistance 5=Supervision or Setup 2=Maximal Assistance 6=Modified [place] 3=Moderate Assistance 7=Complete IndependenceIRFPAI Quality Coding Scale 6 Independent with activity with or without an assistive device 5 Patient requires set up or clean up by helper. Patient completes activity by themselves 4 Supervision or touching assist (CGA). [place] provide cues , steadying assist 3 The helper provides less than half the effort to complete the activity 2 The helper provides more than half the effort to complete the activity 1 Dependent. The helper does all the effort to complete an activity 7 Patient refused to complete or attempt activity 9 The patient did not perform the activity before the current illness or injury 88 Not attempted due to Medical conditions or safety concerns Transfers (B, C, W/C) (FIM): 4 Scootin Rollin Supine to/from Sit: 5 Sit to/from Stand: 4 Bed to/from Chair: 4 cues for safety and hand placement Gait Training Gait (FIM): 2 Distance: 120'x3 Gait Level of Assist: 4 Gait Persons Needed: 1 Gait Assistive Device: FWW slow, no LOB, needs cues when turning to sit because she tries to sit too soon Exercises Standing: Hip Abduction, Hamstring curls, Heel/toe raises, Marching, Mini squats Standing Reps: 20 Treatments bed mobility and transfers, ambulation, functional strengthening Assessment Current Status: Fair Progress patient has poor endurance and needs rest breaks between pretty much every activity PT Short Term Goals Short Term Goals Time Frame: Nov 16, 2016 Gait (FIM): 4 Gait Distance Comment: 150' Gait Level of Assist: 4 Gait Assistive Device: FWW PT [facility] Goals Financial Accounting Analyst Goals PT Financial Accounting Analyst Goals Time Frame: Nov 30, 2016 Transfers (B,C,W/C) (FIM): 6 Sit to Lying (QC): 6 Lying-Sitting on Side/Bed(QC): 6 Sit to Stand (QC): 6 Rollin Roll Left to Right (QC): 6 Chair/Khg-jf-Xnlxy Xfer(QC): 6 Car Transfer (QC): 4 Gait (FIM): 5 Distance: 200' Walk 10 feet (QC): 4 Walk 10ft-Uneven Surface(QC): 4 Walk 50ft with 2 Turns (QC): 4 Walk 150 ft (QC): 4 Gait Level of Assist: 5 Gait Assistive Device: FWW Stairs (FIM): 2 # of Steps: 4 1 Step (curb) (QC): 4 4 Steps (QC): 4 12 Steps (QC): 88 Stairs Level Of Assist: 4 Picking up an Object (QC): 88 PT Plan Problem List Problem List: Activity Tolerance, Functional Strength, Safety, Balance, Gait, Transfer, Bed Mobility Treatment/Plan Treatment Plan: Continue Plan of Care Treatment Plan: Bed Mobility, Education, Functional Activity Leopoldo, Functional Strength, Group Therapy, Gait, Safety, Therapeutic Exercise, Transfers Treatment Duration: Nov 30, 2016 Visits Per Week: 10-11 Minutes/Day (M-F): 60-90 Minutes/Day (Sat/Swain): 15-30 Safety Risks/Education Patient Education: Gait Training, Transfer Techniques, Safety Issues Teaching Recipient: Patient Teaching Methods: Demonstration, Discussion Response to Teaching: Reinforcement Needed Time/GCodes Time In: 1440 Time Out: 1515 Total Billed Treatment Time: 35 Total Billed Treatment 1 visit GT 20 min EX 15 min WAYNE BURGESS PT Nov 09, 2016 15:25
--- NOTE | 2016-11-09 15:40 | Therapy Group Daily Note ---
Therapy Daily Group Note Patient Education Topic Other List Below (ARU Description) Exercises LE Seated Exercise, UE Exercise Other/Notes Pt participated in PT/OT Group in Therapy [facility] area. Pt ambulated to Group using FWW. Group consisted of Intro. (Name, [place]/Where You Live, Favorite Childhood Memory), Socialization, UE/LE Ex, Memory Recall for Peer Memories shared and Name that Tune Recall. Pt actively participated in Group by naming songs as well as performing Ex. PT assists pt in returning to room. Pt is left with all needs met at end of tx. Start Time: 13:00 Stop Time: 14:00 Total Billed Treatment Time: 60 Total Billed Treatment 1, GRP AHMET RAMIRES TAP AND DIE MAKER TECHNICIAN Nov 09, 2016 15:40
[2016-11-09] MEDS: inSUlin (REGULAR) HUMAN 1 UNIT/0.01 ML (CHARGE PER UNIT) SC SCH ×2 (16:00→20:44)
[2016-11-09 18:03] VITALS: BP 95/47
[2016-11-09] MEDS: GLIMEPIRIDE 4 MG (AMARYL) TAB PO SCH (21:48)
[2016-11-09] MEDS: ATORVASTATIN 80 MG (LIPITOR) TABLET PO SCH (21:48)
[2016-11-09] MEDS: ISOSORBIDE MONONITRATE 30 MG (IMDUR) TAB PO SCH (21:48)
[2016-11-09] MEDS: TICAGRELOR 90 MG TABLET (BRILINTA) PO SCH (21:48)
[2016-11-09] MEDS: CARVEDILOL 12.5 MG (COREG) TABLET PO SCH (21:48)
[2016-11-09] MEDS: MICONAZOLE 2% POWDER (DESENEX AF) 90 GM TOP SCH (21:50)
[2016-11-10 05:35] VITALS: BP 100/61
[2016-11-10] MEDS: inSUlin (REGULAR) HUMAN 1 UNIT/0.01 ML (CHARGE PER UNIT) SC SCH ×5 (06:00→21:48)
[2016-11-10] MEDS: metFORMIN 850 MG (GLUCOPHAGE) TAB PO SCH (07:23)
[2016-11-10] MEDS: PANTOPRAZOLE 20 MG TABLET (PROTONIX) PO SCH (07:23)
[2016-11-10] MEDS: MULTIVIT W/MINERALS TAB (THERAGRAN M) PO SCH (07:23)
[2016-11-10 08:47] VITALS: BP 100/48
[2016-11-10] MEDS: amLODIPine 10 MG (NORVASC) TAB PO SCH (08:50)
[2016-11-10] MEDS: GLIMEPIRIDE 4 MG (AMARYL) TAB PO SCH (08:50)
[2016-11-10] MEDS: ISOSORBIDE MONONITRATE 30 MG (IMDUR) TAB PO SCH ×2 (08:50→20:30)
[2016-11-10] MEDS: ASPIRIN E.C. 81 MG (ECOTRIN) TAB PO SCH (08:50)
[2016-11-10] MEDS: TICAGRELOR 90 MG TABLET (BRILINTA) PO SCH ×2 (08:50→20:30)
[2016-11-10] MEDS: FAMOTIDINE 20 MG (PEPCID) TABLET PO SCH (08:50)
[2016-11-10] MEDS: HYDROCHLOROTHIAZIDE 25 MG (HCTZ) TAB PO SCH (08:50)
[2016-11-10] MEDS: CALCIUM CARBONATE 500 MG (TUMS) TAB.CHEW PO SCH (08:51)
[2016-11-10] MEDS: lisINopril 20 MG (ZESTRIL) TAB PO SCH (08:51)
[2016-11-10] MEDS: CARVEDILOL 12.5 MG (COREG) TABLET PO SCH ×2 (08:51→20:30)
[2016-11-10] MEDS: ENOXAPARIN 40 MG/0.4 ML (LOVENOX) SYR SC SCH (08:51)
[2016-11-10] MEDS: OMEGA 3 (FISH OIL) 1000 MG CAP PO SCH (08:51)
[2016-11-10] MEDS: MICONAZOLE 2% POWDER (DESENEX AF) 90 GM TOP SCH ×2 (08:54→20:42)
[2016-11-10] MEDS ORDERED: [UNRECOGNIZED DRUG - OTHER] PO SCH (09:00)
[2016-11-10] MEDS ORDERED: B12 PO SCH (09:00)
[2016-11-10] MEDS ORDERED: LEVOMEFOLATE PO SCH (09:00)
[2016-11-10] MEDS ORDERED: ALGAL OIL PO SCH (09:00)
[2016-11-10] MEDS ORDERED: B6 PO SCH (09:00)
--- NOTE | 2016-11-10 09:04 | Physical Therapy Daily Note ---
PT Daily Note-Current Subjective Pt sitting at EOB doing crossword puzzle upon arrival. Pt agrees to ambulation for PT tx. Pain Numeric Pain Scale: 3 Location: Right, Left Location Body Site: Thigh Pain Description: Tightness Mental Status Patient Orientation: Person, Place, Situation Transfers Functional [place] Measure 0=Not Assessed/NA 4=Minimal Assistance 1=Total Assistance 5=Supervision or Setup 2=Maximal Assistance 6=Modified [place] 3=Moderate Assistance 7=Complete IndependenceIRFPAI Quality Coding Scale 6 Independent with activity with or without an assistive device 5 Patient requires set up or clean up by helper. Patient completes activity by themselves 4 Supervision or touching assist (CGA). [place] provide cues , steadying assist 3 The helper provides less than half the effort to complete the activity 2 The helper provides more than half the effort to complete the activity 1 Dependent. The helper does all the effort to complete an activity 7 Patient refused to complete or attempt activity 9 The patient did not perform the activity before the current illness or injury 88 Not attempted due to Medical conditions or safety concerns Transfers (B, C, W/C) (FIM): 5 Scootin Rollin Roll Left to Right (QC): 6 Supine to/from Sit: 5 Sit to/from Stand: 5 Sit to Stand (QC): 5 Weight Bearing Weight Bearing Restriction: Full Weight Bearing Location Restriction: LE Bilateral Gait Training Does the Patient Walk?: Yes Gait (FIM): 4 Distance: 250' Walk 10 feet (QC): 5 Walk 50 ft with 2 Turns(QC): 5 Walk 150 ft (QC): 4 Gait Level of Assist: 4 Gait Persons Needed: 1 Gait Assistive Device: FWW Pt walks with slow but steady wagner and no LOB. Pt reports tightness in B thighs after ambulating and needs rest. Wheelchair Training Does the Pt Use a Wheelchair?: No Treatments Pt transfers from EOB at SBA then ambulates using FWW at CGA in Therapy Commons. Pt takes rest after approx. 100-150' then continues ambulating. Pt returns to room to rest EOB with all needs met at end of tx. Assessment Current Status: Good Progress Pt ambulates well but fatigues and needs rest break. Pt reports that is farther than she has walked in quite sometime. PT Short Term Goals Short Term Goals Time Frame: Nov 16, 2016 Gait (FIM): 4 Gait Distance Comment: 150' Gait Level of Assist: 4 Gait Assistive Device: FWW PT Day Camp Counselor Goals [facility] Goals PT Day Camp Counselor Goals Time Frame: Nov 30, 2016 Transfers (B,C,W/C) (FIM): 6 Sit to Lying (QC): 6 Lying-Sitting on Side/Bed(QC): 6 Sit to Stand (QC): 6 Rollin Roll Left to Right (QC): 6 Chair/Pdb-ds-Mylxa Xfer(QC): 6 Car Transfer (QC): 4 Gait (FIM): 5 Distance: 200' Walk 10 feet (QC): 4 Walk 10ft-Uneven Surface(QC): 4 Walk 50ft with 2 Turns (QC): 4 Walk 150 ft (QC): 4 Gait Level of Assist: 5 Gait Assistive Device: FWW Stairs (FIM): 2 # of Steps: 4 1 Step (curb) (QC): 4 4 Steps (QC): 4 12 Steps (QC): 88 Stairs Level Of Assist: 4 Picking up an Object (QC): 88 PT Plan Problem List Problem List: Activity Tolerance, Functional Strength, Safety, Gait, Transfer Treatment/Plan Treatment Plan: Continue Plan of Care Treatment Plan: Bed Mobility, Education, Functional Activity Leopoldo, Functional Strength, Group Therapy, Gait, Safety, Therapeutic Exercise, Transfers Treatment Duration: Nov 30, 2016 Visits Per Week: 10-11 Minutes/Day (M-F): 60-90 Minutes/Day (Sat/Swain): 15-30 Safety Risks/Education Patient Education: Gait Training, Transfer Techniques, Correct Positioning, Safety Issues Teaching Recipient: Patient Teaching Methods: Discussion Response to Teaching: Verbalize Understanding Time/GCodes Time In: 820 Time Out: 835 Total Billed Treatment Time: 15 Total Billed Treatment visit, GT (15m) AHMET RAMIRES PTA Nov 10, 2016 09:04
--- NOTE | 2016-11-10 09:17 | HISTORY AND PHYSICAL ---
DATE OF ADMISSION: 11/09/2016 CHIEF COMPLAINT: Generalized weakness, blind HISTORY OF PRESENT ILLNESS: The patient is a 76-year-old female with known coronary artery disease, who was admitted to [facility] for treatment of a non-ST elevation OK. The patient had evaluation with cardiology. The patient had multivessel disease, found not to be correctable with procedures. The patient was treated medically. The patient had a decline in her functional independence due to this and was referred to Inpatient Rehabilitation Unit. The patient states that her son lives with her, but he is gone during the day at work. She had been modified independent with a single-point cane prior to this. Currently she is min assist for transfers, and ambulation with a walker. She was referred to Inpatient Rehabilitation Unit for comprehensive inpatient rehabilitation. She presents to the unit with her granddaughter. She is modified independent for eating. Set up for grooming, upper body dressing. Min assist for lower body dressing, bathing and toileting. Cognitively she is grossly intact. PAST MEDICAL HISTORY: 1. Coronary artery disease. 2. COPD. 3. Diabetes mellitus. 4. GERD. 5. Hypertension. PAST SURGICAL HISTORY: CABG ALLERGIES: No known medication allergies. FAMILY HISTORY: Noncontributory. SOCIAL HISTORY: She is . She lives with one of her children in [place]. REVIEW OF SYSTEMS: Ten-point review of systems significant for mild dyspnea on exertion. Generalized weakness. MEDICATIONS: 1. Transderm scopolamine 1.5 mg q.3 days. 2. Pepcid 20 mg p.o. daily. 3. ASA 81 mg p.o. daily. 4. Fish oil 3000 mg p.o. daily. 5. Hydrochlorothiazide 25 mg p.o. daily. 6. Amlodipine 10 mg p.o. daily. 7. Lisinopril 40 mg p.o. daily. 8. Lovenox 40 mg subcutaneous q.24 hours. 9. Calcium carbonate 1000 mg p.o. daily. 10. Protonix 20 mg p.o. 11. Multivitamins with minerals one tablet p.o. daily. 12. Metformin 850 mg p.o. daily. 13. Isosorbide 30 mg p.o. b.i.d. 14. Glimepiride 4 mg p.o. b.i.d. 15. Lipitor 80 mg p.o. at bedtime. 16. Brilinta 90 mg p.o. b.i.d. 17. Desenex powder affected area b.i.d. 18. Coreg 25 mg p.o. b.i.d. 19. Regular insulin sliding scale insulin regimen A. 20. Zofran 4 mg p.o. q.6 h. p.r.n. nausea or emesis. 21. Tramadol 50 mg one to two tablets p.o. every 8 hours p.r.n. mild pain. 22. Nitroglycerin 0.4 mg sublingual p.r.n. chest pain. PHYSICAL EXAMINATION: Physical examination is significant for an obese, pleasant female, appearing her stated age, alert and oriented no acute distress. VITAL SIGNS: Blood pressure is 100/61, respirations 16, pulse is 71. She is afebrile. O2 sat 94% on room air. HEENT: Vision, speech, hearing, grossly intact. No oral lesion is noted. NECK: Supple without mass. HEART: Heart is regular rhythm. LUNGS: Clear. ABDOMEN: Soft, nontender. Bowel sounds present. EXTREMITIES: Trace edema both ankles. No calf tenderness. MUSCULOSKELETAL: The patient has functional active range of motion in all 4 extremities. NEUROLOGIC: Cognition is grossly intact. Sensation grossly intact to touch. She has generalized weakness. Strength generally 4/5 throughout. Her dynamic standing balance is mildly impaired. IMPRESSION: 1. General debilitation secondary to non ST elevation OK with diffuse coronary artery disease, status post CABG, remote. 2. Diabetes mellitus, controlled with medication. 3. GERD, on medication. 4. Hypertension, controlled with medication. 5. HLP-on statin 6. PVD 7. Obesity BMI 36 8. Ultra rapid Plavix metabolizer PLAN: The patient will have a comprehensive program of inpatient rehabilitation with goal of maximizing level of functional dependence prior to discharge home with her son and home health care. The patient will have PT/OT 90 minutes per day, each discipline, 5 days week for gait strengthening, conditioning, balance, ADLs, energy conservation, any/caregiver training necessary, any adaptive equipment and training necessary. Speech therapy to do cognitive assessment they have found her to be intact and signed off. Rehabilitation nursing assist with bowel, bladder, skin, wound care, medication administration, pain management. corporate services manager to assist with discharge planning, community reentry. Follow-up with cardiology and hospitalist as per their schedules. PCP is Dr. Latonya Marsh. Monitor Accu-Cheks and adjust medication as appropriate. Therapy with cardiac and fall precautions. ESTIMATED LENGTH OF STAY: Two weeks. PROGNOSIS: Rehab prognosis appears good for goal of discharging home modified independent to supervision for ADLs and mobility skills. DIET: Carb consistent. CODE STATUS: Full code. POST ADMISSION PHYSICIAN ASSESSMENT: The preadmission screen agrees with the post admission assessment that the patient is a good candidate for inpatient rehabilitation. She appears to be well motivated to participate in 3 hours of therapy a day. She should be able tolerate 3 hours of therapy a day from a medical standpoint. She should benefit from the 3 hours of therapy a day. She has reasonable discharge plan, reasonable discharge rehabilitation goals and a supportive family. She has various comorbidities that need to be closely monitored with medications and treatments adjusted on a daily basis as needed. She has various comorbidities that need to be closely monitored with medications and treatments adjusted on a daily basis as needed. These include her diabetes mellitus, her hypertension and her coronary artery disease. Barriers to discharge for this patient to return home, are for her to be modified independent to supervision for ADLs and mobility skills, so as to lessen the burden of the caregivers. Risks for this patient include: 1. Recurrent OK. 2. Fall. 3. Fracture. 4. DVT. 5. Pulmonary embolism. 6. Urinary retention. 7. UTI. 8. Respiratory infection. 9. Aspiration. 10. Poorly controlled diabetes. 11. Angina. 12. Poorly controlled hypertension. Job ID: [id number] Dictated Date: 11/10/2016 08:11:53 Leasing Assistant Date: 11/10/2016 08:49:45/alba ENGLISH
--- NOTE | 2016-11-10 11:33 | Occupational Ther Daily Note ---
OT Current Status-Daily Note Subjective "Another one? when do I rest?" Appearance Patient in bed visiting with nurse when OT arrived. Agreed to shower this am. Mental Status/Objective Patient Orientation: Person, Place, Situation Functional [place] Measure 0=Not Assessed/NA 4=Minimal Assistance 1=Total Assistance 5=Supervision or Setup 2=Maximal Assistance 6=Modified [place] 3=Moderate Assistance 7=Complete [place] ADL-Treatment Ambulated to the bathroom and seated self on bath chair, using her walker. Was instructed in how to use the shower as she reported she did not know how. Once seated, bathed self independently. She had difficulty handling the hand held shower, her soap and wash clothe in a coordinated fashion. OT had to assist with managing this for her, but she could bath her body independently. Dressed herself independently in simple clothing including slippy socks. She did not want to do hygiene at this time. Able to get in and out of bed independently. Functional [place] Measure 0=Not Assessed/NA 4=Minimal Assistance 1=Total Assistance 5=Supervision or Setup 2=Maximal Assistance 6=Modified [place] 3=Moderate Assistance 7=Complete IndependenceIRFPAI Quality Coding Scale 6 Independent with activity with or without an assistive device 5 Patient requires set up or clean up by helper. Patient completes activity by themselves 4 Supervision or touching assist (CGA). [place] provide cues , steadying assist 3 The helper provides less than half the effort to complete the activity 2 The helper provides more than half the effort to complete the activity 1 Dependent. The helper does all the effort to complete an activity 7 Patient refused to complete or attempt activity 9 The patient did not perform the activity before the current illness or injury 88 Not attempted due to Medical conditions or safety concerns Bathing (FIM): 5 Bathing Location: L Arm, R Arm, L Upper Leg, R Upper Leg, L Lower Leg ( including foot), R Lower Leg (including foot), Chest, Abdomen, Buttocks, Perineal Area Shower/Bathe Self (QC): 5 OT Short Term Goals Short Term Goals Time Frame: Nov 16, 2016 Bathing(FIM): 5 Upper Body Dressing(FIM): 5 Lower Body Dressing(FIM): 5 Toileting(FIM): 5 Shower Transfer(FIM): 4 (CGA) Additional Short Term Goals: 1-Demonstrate ADL Tasks, 2-Verbalize Understanding , 3-ImproveStrength/Leopoldo 1=Demonstrate adherence to instructed precautions during ADL tasks. 2=Patient will verbalize/demonstrate understanding of assistive devices/ modifications for ADL. 3=Patient will improve strength/tolerance for activity to enable patient to perform ADL's. OT Pickling Drum Operator Goals Pickling Drum Operator Goals Time Frame: Nov 30, 2016 Eating (FIM): 6 Eating (QC): 6 Groomin Oral Hygiene (QC): 6 Bathing(FIM): 5 Shower/Bathe Self (QC): 5 Upper Body Dressing(FIM): 6 Upper Body Dressing (QC): 6 Lower Body Dressing(FIM): 6 Lower Body Dressing (QC): 6 On/Off Footwear (QC): 6 Toileting(FIM): 6 Toileting Hygiene (QC): 6 Toilet/Commode Transfer(FIM): 6 Toilet/Commode Transfer (QC): 6 Shower Transfer(FIM): 5 Additional Goals: 1-Demonstrate ADL Tasks, 2-Verbalize Understanding, 3- ImproveStrength/Leopoldo 1=Demonstrate adherence to instructed precautions during ADL tasks. 2=Patient will verbalize/demonstrate understanding of assistive devices/ modifications for ADL. 3=Patient will improve strength/tolerance for activity to enable patient to perform ADL's. OT Education/Plan Problem List/Assessment Pt to benefit from skilled OT intervention for ADL training, transfers, strengthening, and home safety education to maximize level of function and allow safe return home with family support. Discharge Recommendations Plan/Recommendations: Continue POC Treatment Plan/Plan of Care Patient would benefit from OT for education, treatment and training to promote independence in ADL's, mobility, safety and/or upper extremity function for ADL' s. Plan of Care: ADL Retraining, Functional Mobility, Group Exercise/Act as Ind, UE Funct Exercise/Act Treatment Duration: Nov 30, 2016 Minutes/Day (M-F): 60-90 Minutes/Day (Sat/Swain): PRN Agreement: Yes Rehab Potential: Fair Time/GCodes Start Time: 09:10 Stop Time: 09:50 Total Time Billed (hr/min): 40 Billed Treatment Time Visit, ADL x 4 G Codes Necessary: No MONTSERRAT AGUILLON OT Nov 10, 2016 11:33
[2016-11-10] MEDS: SCOPOLAMINE 1.5 MG (TRANSDERM-SCOP) PATCH TOP SCH (12:52)
[2016-11-10 18:24] VITALS: BP 98/61
[2016-11-10] MEDS ORDERED: LOPERAMIDE 2 MG (IMODIUM) CAP PO PRN (20:00)
[2016-11-10] MEDS: ATORVASTATIN 80 MG (LIPITOR) TABLET PO SCH (20:29)
[2016-11-11] MEDS: metFORMIN 850 MG (GLUCOPHAGE) TAB PO SCH (01:11)
[2016-11-11 05:04] VITALS: BP 108/54
[2016-11-11] MEDS: inSUlin (REGULAR) HUMAN 1 UNIT/0.01 ML (CHARGE PER UNIT) SC SCH ×3 (05:15→18:00)
[2016-11-11] MEDS: PANTOPRAZOLE 20 MG TABLET (PROTONIX) PO SCH (06:14)
[2016-11-11] MEDS: MULTIVIT W/MINERALS TAB (THERAGRAN M) PO SCH (06:14)
[2016-11-11 08:31] VITALS: BP 134/61
[2016-11-11] MEDS: ASPIRIN E.C. 81 MG (ECOTRIN) TAB PO SCH (08:32)
[2016-11-11] MEDS: ISOSORBIDE MONONITRATE 30 MG (IMDUR) TAB PO SCH ×2 (08:32→20:49)
[2016-11-11] MEDS: CARVEDILOL 12.5 MG (COREG) TABLET PO SCH ×2 (08:32→20:49)
[2016-11-11] MEDS: OMEGA 3 (FISH OIL) 1000 MG CAP PO SCH (08:32)
[2016-11-11] MEDS: HYDROCHLOROTHIAZIDE 25 MG (HCTZ) TAB PO SCH (08:32)
[2016-11-11] MEDS: FAMOTIDINE 20 MG (PEPCID) TABLET PO SCH (08:32)
[2016-11-11] MEDS: TICAGRELOR 90 MG TABLET (BRILINTA) PO SCH ×2 (08:32→20:49)
[2016-11-11] MEDS: lisINopril 20 MG (ZESTRIL) TAB PO SCH (08:33)
[2016-11-11] MEDS: ENOXAPARIN 40 MG/0.4 ML (LOVENOX) SYR SC SCH (08:33)
[2016-11-11] MEDS: amLODIPine 10 MG (NORVASC) TAB PO SCH (08:37)
[2016-11-11] MEDS: MICONAZOLE 2% POWDER (DESENEX AF) 90 GM TOP SCH ×2 (08:37→20:51)
[2016-11-11] MEDS: CALCIUM CARBONATE 500 MG (TUMS) TAB.CHEW PO SCH (08:40)
[2016-11-11] MEDS ORDERED: SCOPOLAMINE 1.5 MG (TRANSDERM-SCOP) PATCH TOP SCH (09:00)
--- NOTE | 2016-11-11 13:27 | Progress Note-Hospitalist ---
Progress Note Progress Notes/Assess & Plan Date Seen 11/11/16 Diagonsis/Assessment & Plan Patient doing much better considering hypoglycemia episode is resolving Amaryl and metformin have been held to allow glycogen store to replete Patient reports rash and abdominal folds is improving Nurse has no concerns No fever, vital signs stable, pleasant, improved, flat affect Poor motivation, regular rate rhythm, clear to all sedation bilaterally No edema Assessment: Non-ST elevation AK with multivessel disease unable to intervene with significant debility requiring inpatient rehabilitation stay HTN HLP OP DM Angina GERD Severe yeast skin infection in abdominal folds Refractory hypoglycemia due to long-acting oral hypoglycemic agent and likely noncompliant at home giving rise to depleted glycogen stores when given meds here in controlled diet environment Plan: Check labs in a.m. Hold Amaryl and metformin KEISHA GARDNER DO Nov 11, 2016 13:27
[2016-11-11 18:14] VITALS: BP 111/63
[2016-11-11] MEDS: ATORVASTATIN 80 MG (LIPITOR) TABLET PO SCH (20:49)
[2016-11-12 05:31] LABS: BASOPHILS % (AUTO) 0 % (0-10); EOSINOPHILS # (AUTO) 0.1 10^3/uL (0.0-0.3); EOSINOPHILS % (AUTO) 2 % (0-10); LYMPHOCYTES # (AUTO) 2.6 X 10^3 (1.0-4.0); LYMPHOCYTES % (AUTO) 35 % (12-44); MEAN CORPUSCULAR HEMOGLOBIN 30 PG (25-34); MEAN CORPUSCULAR HGB CONC 34 G/DL (32-36); MEAN CORPUSCULAR VOLUME 89 FL (80-99); MEAN PLATELET VOLUME 9.9 FL (7.4-10.4); MONOCYTES # (AUTO) 0.9 X 10^3 (0.0-1.0); MONOCYTES % (AUTO) 12 % (0-12); NEUTROPHILS # (AUTO) 3.8 X 10^3 (1.8-7.8); NEUTROPHILS % (AUTO) 51 % (42-75); PLATELET COUNT 198 10^3/uL (130-400); RED BLOOD COUNT 3.22 10^6/uL (4.35-5.85); RED CELL DISTRIBUTION WIDTH 15.3 % (10.0-14.5); WHITE BLOOD COUNT 7.4 10^3/uL (4.3-11.0)
[2016-11-12 05:40] VITALS: BP 137/78
[2016-11-12 05:53] LABS: ALBUMIN 3.3 G/DL (3.2-4.5); BILIRUBIN,TOTAL 0.7 MG/DL (0.1-1.0); CALCIUM 8.9 MG/DL (8.5-10.1); CREATININE SERUM 1.07 MG/DL (0.60-1.30); POTASSIUM 4.1 MMOL/L (3.6-5.0); TOTAL PROTEIN 5.5 G/DL (6.4-8.2)
[2016-11-12] MEDS: MULTIVIT W/MINERALS TAB (THERAGRAN M) PO SCH (06:29)
[2016-11-12] MEDS: PANTOPRAZOLE 20 MG TABLET (PROTONIX) PO SCH (06:29)
[2016-11-12] MEDS: metFORMIN 850 MG (GLUCOPHAGE) TAB PO SCH (06:29)
[2016-11-12] MEDS: inSUlin (REGULAR) HUMAN 1 UNIT/0.01 ML (CHARGE PER UNIT) SC SCH ×5 (06:29→23:07)
--- NOTE | 2016-11-12 08:16 | Cardiology Progress Note ---
Subjective Subjective/Events-last exam Patient is sitting up in chair. Complains of some back pain. Denies any CP or dyspnea. Review of Systems General: No Night Sweats, No Fatigue, No Malaise HEENT: No Visual Changes, No Dysphasia, No Sore Throat Pulmonary: No Dyspnea, No Cough Cardiovascular: No: Chest Pain, Orthopnea, Palpitations Gastrointestinal: No: Abdominal Pain, Nausea, Vomiting Genitourinary: No Dysuria, No Frequency Musculoskeletal: : back painNo: neck pain Neurological: No: Change in speech, Confusion, Numbness, Weakness Objective-Cardiology Exam Last Set of Vital Signs Vital Signs 11/12/16 05:40 Temp 98.0 Pulse 71 Resp 20 B/P 137/78 Pulse Ox 96 O2 Delivery Room Air Capillary Refill : I&O Intake and Output 11/12/16 00:00 Intake Total 2590 ml Balance 2590 ml Intake Oral 2590 ml # Voids 9 # Bowel Movements 3 General: Alert, Oriented X3, Cooperative HEENT: Atraumatic, PERRLA Neck: Supple, No JVD, No Thyromegaly Lungs: Clear to Auscultation Heart: Regular Rate, Normal S1, Normal S2, No Murmurs Abdomen: Normal Bowel Sounds, Soft, No Tenderness, No Hepatosplenomegaly, No Masses Extremities: No Clubbing, No Cyanosis, No Edema, Normal Pulses, No Tenderness/ Swelling Skin: No Rashes, No Breakdown, No Significant Lesion Neuro: Normal Gait, Normal Speech, Strength at 5/5 X4 Ext, Normal Tone, Sensation Intact Psych/Mental Status: Mental Status NL, Mood NL Results Lab Laboratory Tests 11/12/16 05:17 A/P-Cardiology Admission Diagnosis NSTEMI CAD CARLO PVD Assessment/Plan Non-ST elevation myocardial infarction, cardiac catheterization showed extensive coronary artery disease, medical therapy is recommended, reporting improvement. Continue on Brilinta and ASA. Continue to monitor. Nausea, loss of appetite, patient reports improvement. Continue to monitor. Coronary artery disease, history of CABG 3 in 1996 with vein graft to diagonal , vein graft to OM 2 and FOX to LAD. Most recent cardiac catheterization August 2012 and was referred to Dr. Garnica for possible redo CABG, however it was deemed patient is not a good surgical candidate and vessels are very small and recommended continuation of medical management, repeat cardiac catheterization which showed worsening of her coronary artery disease, small vessel, inoperable. Medical therapy is recommended Peripheral vascular disease-monitored by heart and vascular care, continue to monitor at this time. No changes are recommended. Carotid artery stenosis with history of bilateral CEA, followed by heart and vascular care, continue to monitor. Renal artery stenosis-history of stent to right renal artery in June 2012, followed by heart and vascular care. Hypertension, continue to monitor blood pressure Hyperlipidemia, continue to monitor lipids Diabetes mellitus, followed by primary care physician. Ultra-rapid Plavix metabolizer Obesity, BMI is 36. Patient was educated on weight loss. Clinical Quality Measures DVT/VTE Risk/Contraindication: Risk Factor Score Per Nursin RFS Level Per Nursing on Admit: 4+=Very High DEJON GRADY Nov 12, 2016 08:16
[2016-11-12] MEDS: ENOXAPARIN 40 MG/0.4 ML (LOVENOX) SYR SC SCH (09:16)
[2016-11-12] MEDS: amLODIPine 10 MG (NORVASC) TAB PO SCH (09:17)
[2016-11-12] MEDS: MICONAZOLE 2% POWDER (DESENEX AF) 90 GM TOP SCH ×2 (09:17→20:58)
[2016-11-12] MEDS: HYDROCHLOROTHIAZIDE 25 MG (HCTZ) TAB PO SCH (09:17)
[2016-11-12] MEDS: lisINopril 20 MG (ZESTRIL) TAB PO SCH (09:17)
[2016-11-12] MEDS: CARVEDILOL 12.5 MG (COREG) TABLET PO SCH ×2 (09:17→20:57)
[2016-11-12] MEDS: CALCIUM CARBONATE 500 MG (TUMS) TAB.CHEW PO SCH (09:17)
[2016-11-12] MEDS: ISOSORBIDE MONONITRATE 30 MG (IMDUR) TAB PO SCH ×2 (09:17→20:57)
[2016-11-12] MEDS: FAMOTIDINE 20 MG (PEPCID) TABLET PO SCH (09:17)
[2016-11-12] MEDS: ASPIRIN E.C. 81 MG (ECOTRIN) TAB PO SCH (09:17)
[2016-11-12] MEDS: TICAGRELOR 90 MG TABLET (BRILINTA) PO SCH ×2 (09:17→20:56)
[2016-11-12] MEDS: OMEGA 3 (FISH OIL) 1000 MG CAP PO SCH (09:17)
--- NOTE | 2016-11-12 10:03 | Physical Therapy Daily Note ---
PT Daily Note-Current Subjective Patient in recliner pre tx, agrees to PT. No complaints of pain. Appearance Patient in recliner post tx, has nurse call, phone, tray, all needs met. Mental Status Patient Orientation: Normal For Age Transfers Functional [place] Measure 0=Not Assessed/NA 4=Minimal Assistance 1=Total Assistance 5=Supervision or Setup 2=Maximal Assistance 6=Modified [place] 3=Moderate Assistance 7=Complete IndependenceIRFPAI Quality Coding Scale 6 Independent with activity with or without an assistive device 5 Patient requires set up or clean up by helper. Patient completes activity by themselves 4 Supervision or touching assist (CGA). [place] provide cues , steadying assist 3 The helper provides less than half the effort to complete the activity 2 The helper provides more than half the effort to complete the activity 1 Dependent. The helper does all the effort to complete an activity 7 Patient refused to complete or attempt activity 9 The patient did not perform the activity before the current illness or injury 88 Not attempted due to Medical conditions or safety concerns Transfers (B, C, W/C) (FIM): 5 Sit to/from Stand: 5 Patient needs cues to turn completely before sitting and for hand placement. Gait Training Gait (FIM): 5 Distance: 150'x3 Gait Level of Assist: 5 Gait Persons Needed: 1 Gait Assistive Device: FWW Patient fatigues quickly. Exercises Standing: Hip Abduction, Heel/toe raises, Mini squats Standing Reps: 20 NuStep Minutes: 15 NuStep Workload: 4 Treatments transfers, ambulation, functional strengthening Assessment Current Status: Fair Progress Patient has poor endurance, she needs rest breaks between pretty much every activity. PT Short Term Goals Short Term Goals Time Frame: Nov 16, 2016 Gait (FIM): 4 Gait Distance Comment: 150' Gait Level of Assist: 4 Gait Assistive Device: FWW PT Tower Erector Helper Goals Tower Erector Helper Goals PT Usp Goals Time Frame: Nov 30, 2016 Transfers (B,C,W/C) (FIM): 6 Sit to Lying (QC): 6 Lying-Sitting on Side/Bed(QC): 6 Sit to Stand (QC): 6 Rollin Roll Left to Right (QC): 6 Chair/Mmj-gu-Vexcp Xfer(QC): 6 Car Transfer (QC): 4 Gait (FIM): 5 Distance: 200' Walk 10 feet (QC): 4 Walk 10ft-Uneven Surface(QC): 4 Walk 50ft with 2 Turns (QC): 4 Walk 150 ft (QC): 4 Gait Level of Assist: 5 Gait Assistive Device: FWW Stairs (FIM): 2 # of Steps: 4 1 Step (curb) (QC): 4 4 Steps (QC): 4 12 Steps (QC): 88 Stairs Level Of Assist: 4 Picking up an Object (QC): 88 PT Plan Problem List Problem List: Activity Tolerance, Functional Strength, Safety, Balance, Gait, Transfer Treatment/Plan Treatment Plan: Continue Plan of Care Treatment Plan: Bed Mobility, Education, Functional Activity Leopoldo, Functional Strength, Group Therapy, Gait, Safety, Therapeutic Exercise, Transfers Treatment Duration: Nov 30, 2016 Visits Per Week: 10-11 Minutes/Day (M-F): 60-90 Minutes/Day (Sat/Swain): 15-30 Safety Risks/Education Patient Education: Gait Training, Transfer Techniques, Safety Issues Teaching Recipient: Patient Teaching Methods: Demonstration, Discussion Response to Teaching: Reinforcement Needed Time/GCodes Time In: 900 Time Out: 1000 Total Billed Treatment Time: 60 Total Billed Treatment 1 visit GT 30 min EX 30 min WAYNE BURGESS PT Nov 12, 2016 10:03
--- NOTE | 2016-11-12 10:29 | Occupational Ther Daily Note ---
OT Current Status-Daily Note Subjective Pt sitting in chair, agrees to treatment. Pt reports stiffness in back and shoulders secondary to being uncomfortable in bed. Mental Status/Objective Functional [place] Measure 0=Not Assessed/NA 4=Minimal Assistance 1=Total Assistance 5=Supervision or Setup 2=Maximal Assistance 6=Modified [place] 3=Moderate Assistance 7=Complete [place] ADL-Treatment Pt agrees to shower this morning. Sit to stand with supervision. Pt retrieved clothing from closet with SBA using FWW. Transfer to walk in shower with SBA, cues for safety. Pt able to wash/dry all areas with SBA and increased time. Uses hand held shower. Don pullover dress with SBA. Pt donned underwear with SBA for standing balance during pant hike. Dons socks with SBA. Pt stood at sink to complete oral care with SBA. Lim hair with SBA. Pt transferred to chair with SBA. Sitting in chair with needs met after session. Functional [place] Measure 0=Not Assessed/NA 4=Minimal Assistance 1=Total Assistance 5=Supervision or Setup 2=Maximal Assistance 6=Modified [place] 3=Moderate Assistance 7=Complete IndependenceIRFPAI Quality Coding Scale 6 Independent with activity with or without an assistive device 5 Patient requires set up or clean up by helper. Patient completes activity by themselves 4 Supervision or touching assist (CGA). [place] provide cues , steadying assist 3 The helper provides less than half the effort to complete the activity 2 The helper provides more than half the effort to complete the activity 1 Dependent. The helper does all the effort to complete an activity 7 Patient refused to complete or attempt activity 9 The patient did not perform the activity before the current illness or injury 88 Not attempted due to Medical conditions or safety concerns Grooming (FIM): 5 Bathing (FIM): 5 Upper Body (FIM): 5 Lower Body Dressing (FIM): 5 Shower Transfer(FIM): 5 OT Short Term Goals Short Term Goals Time Frame: Nov 16, 2016 Bathing(FIM): 5 Upper Body Dressing(FIM): 5 Lower Body Dressing(FIM): 5 Toileting(FIM): 5 Shower Transfer(FIM): 4 (CGA) Additional Short Term Goals: 1-Demonstrate ADL Tasks, 2-Verbalize Understanding , 3-ImproveStrength/Leopoldo 1=Demonstrate adherence to instructed precautions during ADL tasks. 2=Patient will verbalize/demonstrate understanding of assistive devices/ modifications for ADL. 3=Patient will improve strength/tolerance for activity to enable patient to perform ADL's. OT Care Home Goals Care Home Goals Time Frame: Nov 30, 2016 Eating (FIM): 6 Eating (QC): 6 Groomin Oral Hygiene (QC): 6 Bathing(FIM): 5 Shower/Bathe Self (QC): 5 Upper Body Dressing(FIM): 6 Upper Body Dressing (QC): 6 Lower Body Dressing(FIM): 6 Lower Body Dressing (QC): 6 On/Off Footwear (QC): 6 Toileting(FIM): 6 Toileting Hygiene (QC): 6 Toilet/Commode Transfer(FIM): 6 Toilet/Commode Transfer (QC): 6 Shower Transfer(FIM): 5 Additional Goals: 1-Demonstrate ADL Tasks, 2-Verbalize Understanding, 3- ImproveStrength/Leopoldo 1=Demonstrate adherence to instructed precautions during ADL tasks. 2=Patient will verbalize/demonstrate understanding of assistive devices/ modifications for ADL. 3=Patient will improve strength/tolerance for activity to enable patient to perform ADL's. OT Education/Plan Problem List/Assessment Pt to benefit from skilled OT intervention for ADL training, transfers, strengthening, and home safety education to maximize level of function and allow safe return home with family support. Discharge Recommendations Plan/Recommendations: Continue POC Treatment Plan/Plan of Care Patient would benefit from OT for education, treatment and training to promote independence in ADL's, mobility, safety and/or upper extremity function for ADL' s. Plan of Care: ADL Retraining, Functional Mobility, Group Exercise/Act as Ind, UE Funct Exercise/Act Treatment Duration: Nov 30, 2016 Minutes/Day (M-F): 60-90 Minutes/Day (Sat/Swain): PRN Agreement: Yes Rehab Potential: Fair Time/GCodes Start Time: 08:00 Stop Time: 09:00 Total Time Billed (hr/min): 60 Billed Treatment Time 1 visit, ADLx4(60minutes) PRESTON MONTANO OT Nov 12, 2016 10:29
--- NOTE | 2016-11-12 10:40 | Cardiology Progress Note ---
Subjective Subjective/Events-last exam Patient is sitting in a chair, feeling better, no new complaint Review of Systems General: No Chills, No Night Sweats, No Fatigue, No Malaise, No Appetite, No Other HEENT: No Head Aches, No Visual Changes, No Eye Pain, No Ear Pain, No Dysphasia , No Sinus Congestion, No Post Nasal Drip, No Sore Throat, No Other Pulmonary: No Dyspnea, No Cough, No Pleuritic Chest Pain, No Other Cardiovascular: No: Chest Pain, Edema, Lt Headedness, Orthopnea, Other, Palpitations, Paroxysmal Noc. Dyspnea Objective-Cardiology Exam Last Set of Vital Signs Vital Signs 11/12/16 11/12/16 05:40 09:00 Temp 98.0 Pulse 71 Resp 20 B/P 137/78 Pulse Ox 96 O2 Delivery Room Air Capillary Refill : I&O Intake and Output 11/12/16 00:00 Intake Total 2590 ml Balance 2590 ml Intake Oral 2590 ml # Voids 9 # Bowel Movements 3 General: Alert, Oriented X3, Cooperative HEENT: Atraumatic, PERRLA Neck: Supple, No JVD, No Thyromegaly Lungs: Clear to Auscultation Heart: Regular Rate, Normal S1, Normal S2, No Murmurs Abdomen: Normal Bowel Sounds, Soft, No Tenderness, No Hepatosplenomegaly, No Masses Extremities: No Clubbing, No Cyanosis, No Edema, Normal Pulses, No Tenderness/ Swelling Skin: No Rashes, No Breakdown, No Significant Lesion Neuro: Normal Gait, Normal Speech, Strength at 5/5 X4 Ext, Normal Tone, Sensation Intact Psych/Mental Status: Mental Status NL, Mood NL Results Lab Laboratory Tests 11/12/16 05:17 A/P-Cardiology Admission Diagnosis NSTEMI CAD CARLO PVD Assessment/Plan Non-ST elevation myocardial infarction, cardiac catheterization showed extensive coronary artery disease, medical therapy is recommended, reporting improvement. Continue on Brilinta and ASA. Continue to monitor. Nausea, loss of appetite, patient reports improvement. Continue to monitor. Coronary artery disease, history of CABG 3 in 1996 with vein graft to diagonal , vein graft to OM 2 and FOX to LAD. Most recent cardiac catheterization August 2012 and was referred to Dr. Garnica for possible redo CABG, however it was deemed patient is not a good surgical candidate and vessels are very small and recommended continuation of medical management, repeat cardiac catheterization which showed worsening of her coronary artery disease, small vessel, inoperable. Medical therapy is recommended Peripheral vascular disease-monitored by heart and vascular care, continue to monitor at this time. No changes are recommended. Carotid artery stenosis with history of bilateral CEA, followed by heart and vascular care, continue to monitor. Renal artery stenosis-history of stent to right renal artery in June 2012, followed by heart and vascular care. Hypertension, continue to monitor blood pressure Hyperlipidemia, continue to monitor lipids Diabetes mellitus, followed by primary care physician. Ultra-rapid Plavix metabolizer Obesity, BMI is 36. Patient was educated on weight loss. Clinical Quality Measures DVT/VTE Risk/Contraindication: Risk Factor Score Per Nursin RFS Level Per Nursing on Admit: 4+=Very High CITLALLI BEASLEY MD Nov 12, 2016 10:40
--- NOTE | 2016-11-12 11:27 | Occupational Ther Daily Note ---
OT Current Status-Daily Note Subjective Pt sitting in chair, agrees to treatment Mental Status/Objective Functional [place] Measure 0=Not Assessed/NA 4=Minimal Assistance 1=Total Assistance 5=Supervision or Setup 2=Maximal Assistance 6=Modified [place] 3=Moderate Assistance 7=Complete [place] ADL-Treatment Functional [place] Measure 0=Not Assessed/NA 4=Minimal Assistance 1=Total Assistance 5=Supervision or Setup 2=Maximal Assistance 6=Modified [place] 3=Moderate Assistance 7=Complete IndependenceIRFPAI Quality Coding Scale 6 Independent with activity with or without an assistive device 5 Patient requires set up or clean up by helper. Patient completes activity by themselves 4 Supervision or touching assist (CGA). [place] provide cues , steadying assist 3 The helper provides less than half the effort to complete the activity 2 The helper provides more than half the effort to complete the activity 1 Dependent. The helper does all the effort to complete an activity 7 Patient refused to complete or attempt activity 9 The patient did not perform the activity before the current illness or injury 88 Not attempted due to Medical conditions or safety concerns Other Treatment Sit to stand with supervision. Gait to therapy gym with FWW, slow pace. Pt completed arm arc activity with bilateral UE to increase activity tolerance and strength. Pt fatigued with activity, but did not require rest break until task was completed. Pt completed peg activity with bilateral UE with 1# weights in place to increase strength and fine motor coordination. Arm bike x8 minutes to increase overall strength and activity tolerance. Pt completed task with slow pace and no resistance. No rest breaks needed. Pt returned to room, sitting in chair with needs met after session. OT Short Term Goals Short Term Goals Time Frame: Nov 16, 2016 Bathing(FIM): 5 Upper Body Dressing(FIM): 5 Lower Body Dressing(FIM): 5 Toileting(FIM): 5 Shower Transfer(FIM): 4 (CGA) Additional Short Term Goals: 1-Demonstrate ADL Tasks, 2-Verbalize Understanding , 3-ImproveStrength/Leopoldo 1=Demonstrate adherence to instructed precautions during ADL tasks. 2=Patient will verbalize/demonstrate understanding of assistive devices/ modifications for ADL. 3=Patient will improve strength/tolerance for activity to enable patient to perform ADL's. OT Senior Living Goals [place] Specialist Goals Time Frame: Nov 30, 2016 Eating (FIM): 6 Eating (QC): 6 Groomin Oral Hygiene (QC): 6 Bathing(FIM): 5 Shower/Bathe Self (QC): 5 Upper Body Dressing(FIM): 6 Upper Body Dressing (QC): 6 Lower Body Dressing(FIM): 6 Lower Body Dressing (QC): 6 On/Off Footwear (QC): 6 Toileting(FIM): 6 Toileting Hygiene (QC): 6 Toilet/Commode Transfer(FIM): 6 Toilet/Commode Transfer (QC): 6 Shower Transfer(FIM): 5 Additional Goals: 1-Demonstrate ADL Tasks, 2-Verbalize Understanding, 3- ImproveStrength/Leopoldo 1=Demonstrate adherence to instructed precautions during ADL tasks. 2=Patient will verbalize/demonstrate understanding of assistive devices/ modifications for ADL. 3=Patient will improve strength/tolerance for activity to enable patient to perform ADL's. OT Education/Plan Problem List/Assessment Pt to benefit from skilled OT intervention for ADL training, transfers, strengthening, and home safety education to maximize level of function and allow safe return home with family support. Discharge Recommendations Plan/Recommendations: Continue POC Treatment Plan/Plan of Care Patient would benefit from OT for education, treatment and training to promote independence in ADL's, mobility, safety and/or upper extremity function for ADL' s. Plan of Care: ADL Retraining, Functional Mobility, Group Exercise/Act as Ind, UE Funct Exercise/Act Treatment Duration: Nov 30, 2016 Minutes/Day (M-F): 60-90 Minutes/Day (Sat/Swain): PRN Agreement: Yes Rehab Potential: Fair Time/GCodes Start Time: 10:50 Stop Time: 11:20 Total Time Billed (hr/min): 30 Billed Treatment Time 1 visit, EXx2(30minutes) PRESTON MONTANO OT Nov 12, 2016 11:26
--- NOTE | 2016-11-12 13:28 | Physical Therapy Daily Note ---
PT Daily Note-Current Subjective Patient agrees to PT. Pain Numeric Pain Scale: 0-No Pain Location: No Pain Reported Mental Status Patient Orientation: Person, Time, Situation Transfers Functional [place] Measure 0=Not Assessed/NA 4=Minimal Assistance 1=Total Assistance 5=Supervision or Setup 2=Maximal Assistance 6=Modified [place] 3=Moderate Assistance 7=Complete IndependenceIRFPAI Quality Coding Scale 6 Independent with activity with or without an assistive device 5 Patient requires set up or clean up by helper. Patient completes activity by themselves 4 Supervision or touching assist (CGA). [place] provide cues , steadying assist 3 The helper provides less than half the effort to complete the activity 2 The helper provides more than half the effort to complete the activity 1 Dependent. The helper does all the effort to complete an activity 7 Patient refused to complete or attempt activity 9 The patient did not perform the activity before the current illness or injury 88 Not attempted due to Medical conditions or safety concerns Transfers (B, C, W/C) (FIM): 5 Scootin Rollin Roll Left to Right (QC): 5 Supine to/from Sit: 5 Sit to/from Stand: 5 Sit to Lying (QC): 5 Sit to Stand (QC): 5 Chair/Kry-io-Erkco Xfer(QC): 5 Gait Training Does the Patient Walk?: Yes Gait (FIM): 5 Distance (FIM): 3=150 ft Distance: 200' x 2 Walk 10 feet (QC): 5 Walk 50 ft with 2 Turns(QC): 5 Walk 150 ft (QC): 5 Gait Level of Assist: 5 Gait Assistive Device: FWW VC's for body placement with FWW Exercises Standing: Heel/toe raises, 3 way Ex=Flex, Abd, Ext, Mini squats Standing Reps: 15 Assessment Patient progressing with treatment. PT to continue to increase activity as tolerated by patient. PT Short Term Goals Short Term Goals Time Frame: Nov 16, 2016 Gait (FIM): 4 Gait Distance Comment: 150' Gait Level of Assist: 4 Gait Assistive Device: FWW PT Mcc Goals Mcc Goals PT Mcc Goals Time Frame: Nov 30, 2016 Transfers (B,C,W/C) (FIM): 6 Sit to Lying (QC): 6 Lying-Sitting on Side/Bed(QC): 6 Sit to Stand (QC): 6 Rollin Roll Left to Right (QC): 6 Chair/Qvc-ij-Vtbhe Xfer(QC): 6 Car Transfer (QC): 4 Gait (FIM): 5 Distance: 200' Walk 10 feet (QC): 4 Walk 10ft-Uneven Surface(QC): 4 Walk 50ft with 2 Turns (QC): 4 Walk 150 ft (QC): 4 Gait Level of Assist: 5 Gait Assistive Device: FWW Stairs (FIM): 2 # of Steps: 4 1 Step (curb) (QC): 4 4 Steps (QC): 4 12 Steps (QC): 88 Stairs Level Of Assist: 4 Picking up an Object (QC): 88 PT Plan Treatment/Plan Treatment Plan: Continue Plan of Care Treatment Plan: Bed Mobility, Education, Functional Activity Leopoldo, Functional Strength, Group Therapy, Gait, Safety, Therapeutic Exercise, Transfers Treatment Duration: Nov 30, 2016 Visits Per Week: 10-11 Minutes/Day (M-F): 60-90 Minutes/Day (Sat/Swain): 15-30 Time/GCodes Time In: 1250 Time Out: 1320 Total Billed Treatment Time: 30 Total Billed Treatment 1 visit EX 15 min GT 15 min SHEILA MADRID PT Nov 12, 2016 13:28
--- NOTE | 2016-11-12 14:00 | PM & R (SOAP) Progress Note ---
Subjective Subjective/Events-last exam Patient was seen in her room this AM Paaaaatient SBA for transfers Patient has limited endurance.Appreciate DR Baptiste and Luc notes Objective Exam Last Set of Vital Signs Vital Signs Date Time Temp Pulse Resp B/P Pulse Ox O2 Delivery O2 Flow Rate FiO2 11/12/16 09:00 Room Air 11/12/16 05:40 98.0 71 20 137/78 96 Capillary Refill : I&O Intake and Output 11/12/16 00:00 Intake Total 2590 ml Balance 2590 ml Intake Oral 2590 ml # Voids 9 # Bowel Movements 3 General: Alert, Oriented X3, Cooperative HEENT: Atraumatic, PERRLA Neck: Supple, No JVD, No Thyromegaly Lungs: Clear to Auscultation Heart: Regular Rate, Normal S1, Normal S2, No Murmurs Abdomen: Normal Bowel Sounds, Soft, No Tenderness, No Hepatosplenomegaly, No Masses Extremities: No Clubbing, No Cyanosis, No Edema, Normal Pulses, No Tenderness/ Swelling Skin: No Rashes, No Breakdown, No Significant Lesion Neuro: Normal Gait, Normal Speech, Strength at 5/5 X4 Ext, Normal Tone, Sensation Intact Psych/Mental Status: Mental Status NL, Mood NL Results Lab Laboratory Tests 11/09/16 16:11: Glucometer 79 11/09/16 20:19: Glucometer 77 11/10/16 06:40: Glucometer 45*L 11/10/16 07:22: Glucometer 120H 11/10/16 10:44: Glucometer 40*L 11/10/16 10:58: Glucometer 41*L 11/10/16 11:40: Glucometer 58*L 11/10/16 12:38: Glucometer 73 11/10/16 14:32: Glucometer 50*L 11/10/16 15:46: Glucometer 50*L 11/10/16 16:15: Glucometer 64L 11/10/16 18:24: Glucometer 72 11/10/16 20:25: Glucometer 55*L 11/10/16 21:46: Glucometer 79 11/10/16 23:23: Glucometer 45*L 11/11/16 01:01: Glucometer 45*L 11/11/16 03:28: Glucometer 53*L 11/11/16 05:08: Glucometer 66L 11/11/16 08:59: Glucometer 58*L 11/11/16 09:49: Glucometer 116H 11/11/16 12:41: Glucometer 68L 11/11/16 18:01: Glucometer 129H 11/12/16 00:02: Glucometer 142H 11/12/16 05:17: Alanine Aminotransferase (ALT/SGPT) 92H, Albumin 3.3, Alkaline Phosphatase 43, Anion Gap 10, Aspartate Amino Transf (AST/SGOT) 70H, BUN/Creatinine Ratio 27, Basophils # (Auto) 0.0, Basophils (%) (Auto) 0, Blood Urea Nitrogen 29H, Calcium Level 8.9, Carbon Dioxide Level 23, Chloride Level 102, Creatinine 1.07 , Eosinophils # (Auto) 0.1, Eosinophils (%) (Auto) 2, Estimat Glomerular Filtration Rate 50, Glucose Level 186H, Hematocrit 29L, Hemoglobin 9.7L, Lymphocytes # (Auto) 2.6, Lymphocytes (%) (Auto) 35, Mean Corpuscular Hemoglobin 30, Mean Corpuscular Hemoglobin Concent 34, Mean Corpuscular Volume 89, Mean Platelet Volume 9.9, Monocytes # (Auto) 0.9, Monocytes (%) (Auto) 12, Neutrophils # (Auto) 3.8, Neutrophils (%) (Auto) 51, Platelet Count 198, Potassium Level 4.1, Red Blood Count 3.22L, Red Cell Distribution Width 15.3H, Sodium Level 135, Total Bilirubin 0.7, Total Protein 5.5L, White Blood Count 7.4 11/12/16 05:26: Glucometer 190H 11/12/16 12:01: Glucometer 145H Assessment/Plan Assessment General debil s/p NSTEMI CAD s/p Cabg remote PVD HLP on statin HTN controlled DM controlled Plan Continue PT/OT TEam Conference 11/14/16 F/U with Cardiology and Hospitalist as per RADHA Padron MD Nov 12, 2016 14:00
--- NOTE | 2016-11-12 14:11 | Individualized Plan of Care ---
Individualized Plan of Care Rehab Nursing IPOC Order Admission Date Nov 09, 2016 at 11:20 Rehab Nursing Orders: Diseage Management, Pain Management PT IPOC Problem List: Activity Tolerance, Functional Strength, Safety, Balance, Gait, Transfer Treatment Plan: Continue Plan of Care Bed Mobility, Education, Functional Activity Leopoldo, Functional Strength, Group Therapy, Gait, Safety, Therapeutic Exercise, Transfers Treatment Duration: Nov 30, 2016 Visits Per Week: 10-11 Minutes/Day (M-F): 60-90 Minutes/Day (Sat/Swain): 15-30 OT IPOC Problems: Decreased Activ Tolerance, Decreased UE Strength, Dependent Transfers , Impaired Self-Care Skills OT Problems Pt to benefit from skilled OT intervention for ADL training, transfers, strengthening, and home safety education to maximize level of function and allow safe return home with family support. Plan of Care: ADL Retraining, Functional Mobility, Group Exercise/Act as Ind, UE Funct Exercise/Act Treatment Duration: Nov 30, 2016 Visits Per Week: 10-11 Minutes/Day (M-F): 60-90 Minutes/Day (Sat/Swain): PRN ST IPOC Speech Therapy Treatment Plan: Discontinue ST Physician IPOC Medical Issues being managed closely and that require the 24 hour availability of a physician: DM HTN Coronary ART D Medical Issues: DVT Prophylaxis, Falls Precautions, Fluid/Electrolyte/ Nutrition Balance, Infection Protection, Other (List) (as per above) Brief Synthesis of Preadmission Screen, Post-Admission Evaluation, and Therapy Evaluations: 76 yo female admitted to ICU for treatment of NSTEMI Patient not a candidate for further revascularization procedure and thus treated medically by Cardiology.Referred to IRU due to a decline in Functional [place] Had been Independent with her son who lives with her but who works fulltime. Medical Prognosis: good Anticipated Length of Stay: 11/30/16 Rehab Goals Modifeid Independent for adls and mobility skills Anticipated discharge destinat: Home with son and [facility] RADHA CERDA MD Nov 12, 2016 14:11
[2016-11-12 18:04] VITALS: BP 100/62
[2016-11-12] MEDS: ATORVASTATIN 80 MG (LIPITOR) TABLET PO SCH (20:56)
[2016-11-13 05:07] VITALS: BP 94/51
[2016-11-13] MEDS: inSUlin (REGULAR) HUMAN 1 UNIT/0.01 ML (CHARGE PER UNIT) SC SCH ×3 (06:00→18:19)
[2016-11-13] MEDS: MULTIVIT W/MINERALS TAB (THERAGRAN M) PO SCH (06:07)
[2016-11-13] MEDS: PANTOPRAZOLE 20 MG TABLET (PROTONIX) PO SCH (06:07)
[2016-11-13] MEDS: metFORMIN 850 MG (GLUCOPHAGE) TAB PO SCH (06:08)
--- NOTE | 2016-11-13 08:09 | Cardiology Progress Note ---
Subjective Subjective/Events-last exam Patient up in room with walker. No new complaints. Denies any CP or dyspnea. Review of Systems General: No Night Sweats, No Fatigue, No Malaise HEENT: No Visual Changes, No Dysphasia, No Sore Throat Pulmonary: No Dyspnea, No Cough Cardiovascular: No: Chest Pain, Palpitations Gastrointestinal: No: Abdominal Pain, Nausea, Vomiting Genitourinary: No Dysuria, No Frequency Musculoskeletal: No: back pain, neck pain Neurological: No: Change in speech, Confusion, Numbness, Weakness Objective-Cardiology Exam Last Set of Vital Signs Vital Signs 11/12/16 11/13/16 20:45 05:07 Temp 97.0 Pulse 72 Resp 18 B/P 94/51 Pulse Ox 95 O2 Delivery Room Air Capillary Refill : I&O Intake and Output 11/13/16 00:00 Intake Total 1300 ml Balance 1300 ml Intake Oral 1300 ml # Voids 5 General: Alert, Oriented X3, Cooperative HEENT: Atraumatic, PERRLA Neck: Supple, No JVD, No Thyromegaly Lungs: Clear to Auscultation Heart: Regular Rate, Normal S1, Normal S2, No Murmurs Abdomen: Normal Bowel Sounds, Soft, No Tenderness, No Hepatosplenomegaly, No Masses Extremities: No Clubbing, No Cyanosis, No Edema, Normal Pulses, No Tenderness/ Swelling Skin: No Rashes, No Breakdown, No Significant Lesion Neuro: Normal Gait, Normal Speech, Strength at 5/5 X4 Ext, Normal Tone, Sensation Intact Psych/Mental Status: Mental Status NL, Mood NL A/P-Cardiology Admission Diagnosis NSTEMI CAD CARLO PVD Assessment/Plan Non-ST elevation myocardial infarction, cardiac catheterization showed extensive coronary artery disease, medical therapy is recommended, reporting improvement. Continue on Brilinta and ASA. Continue to monitor. Nausea, loss of appetite, patient reports improvement. Continue to monitor. Coronary artery disease, history of CABG 3 in 1996 with vein graft to diagonal , vein graft to OM 2 and FOX to LAD. Most recent cardiac catheterization August 2012 and was referred to Dr. Garnica for possible redo CABG, however it was deemed patient is not a good surgical candidate and vessels are very small and recommended continuation of medical management, repeat cardiac catheterization which showed worsening of her coronary artery disease, small vessel, inoperable. Medical therapy is recommended Peripheral vascular disease-monitored by heart and vascular care, continue to monitor at this time. No changes are recommended. Carotid artery stenosis with history of bilateral CEA, followed by heart and vascular care, continue to monitor. Renal artery stenosis-history of stent to right renal artery in June 2012, followed by heart and vascular care. Hypertension, currently hypotensive. I will decrease Norvasc and continue to monitor. Hyperlipidemia, continue to monitor lipids Diabetes mellitus, followed by primary care physician. Ultra-rapid Plavix metabolizer Obesity, BMI is 36. Patient was educated on weight loss. Clinical Quality Measures DVT/VTE Risk/Contraindication: Risk Factor Score Per Nursin RFS Level Per Nursing on Admit: 4+=Very High DEJON GRADY Nov 13, 2016 08:09
[2016-11-13] MEDS: ENOXAPARIN 40 MG/0.4 ML (LOVENOX) SYR SC SCH (09:25)
[2016-11-13] MEDS: OMEGA 3 (FISH OIL) 1000 MG CAP PO SCH (09:25)
[2016-11-13] MEDS: CARVEDILOL 12.5 MG (COREG) TABLET PO SCH ×2 (09:26→20:24)
[2016-11-13] MEDS: TICAGRELOR 90 MG TABLET (BRILINTA) PO SCH ×2 (09:26→20:24)
[2016-11-13] MEDS: MICONAZOLE 2% POWDER (DESENEX AF) 90 GM TOP SCH ×2 (09:26→20:25)
[2016-11-13] MEDS: CALCIUM CARBONATE 500 MG (TUMS) TAB.CHEW PO SCH (09:26)
[2016-11-13] MEDS: lisINopril 20 MG (ZESTRIL) TAB PO SCH (09:26)
[2016-11-13] MEDS: ASPIRIN E.C. 81 MG (ECOTRIN) TAB PO SCH (09:26)
[2016-11-13] MEDS: amLODIPine 10 MG (NORVASC) TAB PO SCH (09:26)
[2016-11-13] MEDS: ISOSORBIDE MONONITRATE 30 MG (IMDUR) TAB PO SCH ×2 (09:26→20:24)
[2016-11-13] MEDS: FAMOTIDINE 20 MG (PEPCID) TABLET PO SCH (09:26)
[2016-11-13] MEDS: HYDROCHLOROTHIAZIDE 25 MG (HCTZ) TAB PO SCH (09:26)
--- NOTE | 2016-11-13 10:00 | Physical Therapy Daily Note ---
PT Daily Note-Current Subjective Patient in recliner pre tx, agrees to PT. She has no complaints of pain, but states she does have some muscle soreness from therapy in bilateral hips and thighs. Appearance Patient sitting EOB post tx with nurse call, phone, tray, all needs met. Mental Status Patient Orientation: Normal For Age Transfers Functional [place] Measure 0=Not Assessed/NA 4=Minimal Assistance 1=Total Assistance 5=Supervision or Setup 2=Maximal Assistance 6=Modified [place] 3=Moderate Assistance 7=Complete IndependenceIRFPAI Quality Coding Scale 6 Independent with activity with or without an assistive device 5 Patient requires set up or clean up by helper. Patient completes activity by themselves 4 Supervision or touching assist (CGA). [place] provide cues , steadying assist 3 The helper provides less than half the effort to complete the activity 2 The helper provides more than half the effort to complete the activity 1 Dependent. The helper does all the effort to complete an activity 7 Patient refused to complete or attempt activity 9 The patient did not perform the activity before the current illness or injury 88 Not attempted due to Medical conditions or safety concerns Transfers (B, C, W/C) (FIM): 5 Sit to/from Stand: 5 occasional cues for safety and hand placement, will often not turn completely before sitting Gait Training Gait (FIM): 5 Distance: 300'x2 Gait Level of Assist: 5 Gait Persons Needed: 1 Gait Assistive Device: FWW very slow ambulation Stair Training Stair Training: Handrails/: 2 handrails Stairs (FIM): 2 #of Steps: 4 Stairs: Pattern: Step to Level of Assist: 4 CGA, patient has a very hard time descending stairs and has to use both handrails and turn sideways quite a bit Exercises Seated Therapy Exercises: Ankle pumps, Hip flexion, Hip abd/add Seated Reps: 20 LAQ alternating for 5 min NuStep Minutes: 15 NuStep Workload: 4 Treatments transfers, ambulation, functional strengthening Assessment Current Status: Fair Progress Endurance improving, but still needs frequent rest breaks. PT Short Term Goals Short Term Goals Time Frame: Nov 16, 2016 Gait (FIM): 4 Gait Distance Comment: 150' Gait Level of Assist: 4 Gait Assistive Device: FWW PT Chairman Ceo Goals Chairman Ceo Goals PT Chairman Ceo Goals Time Frame: Nov 30, 2016 Transfers (B,C,W/C) (FIM): 6 Sit to Lying (QC): 6 Lying-Sitting on Side/Bed(QC): 6 Sit to Stand (QC): 6 Rollin Roll Left to Right (QC): 6 Chair/Tpr-jx-Gmfdx Xfer(QC): 6 Car Transfer (QC): 4 Gait (FIM): 5 Distance: 200' Walk 10 feet (QC): 4 Walk 10ft-Uneven Surface(QC): 4 Walk 50ft with 2 Turns (QC): 4 Walk 150 ft (QC): 4 Gait Level of Assist: 5 Gait Assistive Device: FWW Stairs (FIM): 2 # of Steps: 4 1 Step (curb) (QC): 4 4 Steps (QC): 4 12 Steps (QC): 88 Stairs Level Of Assist: 4 Picking up an Object (QC): 88 PT Plan Problem List Problem List: Activity Tolerance, Functional Strength, Safety, Balance, Gait, Transfer Treatment/Plan Treatment Plan: Continue Plan of Care Treatment Plan: Bed Mobility, Education, Functional Activity Leopoldo, Functional Strength, Group Therapy, Gait, Safety, Therapeutic Exercise, Transfers Treatment Duration: Nov 30, 2016 Visits Per Week: 10-11 Minutes/Day (M-F): 60-90 Minutes/Day (Sat/Swain): 15-30 Safety Risks/Education Patient Education: Gait Training, Transfer Techniques, Steps, Safety Issues Teaching Recipient: Patient Teaching Methods: Demonstration, Discussion Response to Teaching: Reinforcement Needed Time/GCodes Time In: 900 Time Out: 1000 Total Billed Treatment Time: 60 Total Billed Treatment 1 visit GT 30 min EX 30 min WAYNE BURGESS PT Nov 13, 2016 10:00
[2016-11-13] MEDS: SCOPOLAMINE 1.5 MG (TRANSDERM-SCOP) PATCH TOP SCH (13:00)
[2016-11-13] MEDS: SCOPOLAMINE PATCH REMOVAL TP SCH (13:21)
--- NOTE | 2016-11-13 13:35 | Occupational Ther Daily Note ---
OT Current Status-Daily Note Subjective Pt resting in bed, agrees to treatment. Pt has no c/o pain, but states she has some muscle soreness from yesterday's activities. Mental Status/Objective Functional [place] Measure 0=Not Assessed/NA 4=Minimal Assistance 1=Total Assistance 5=Supervision or Setup 2=Maximal Assistance 6=Modified [place] 3=Moderate Assistance 7=Complete [place] ADL-Treatment Supine to sit with modified independence using bed rail. Pt requests sponge bath today. Pt retrieved clothing from closet with SBA using walker for balance. Sponge bath completed seated EOB with SBA and increased time. Don pullover dress with SBA. Pt donned underwear with SBA for standing balance during pant hike. Doffed/donned bilateral socks with SBA. Gait to restroom with FWW. Pt completed toilet transfer with SBA using grab bar. Toileting completed with SBA. Pt stood at sink to wash hands and brush teeth with SBA. Functional [place] Measure 0=Not Assessed/NA 4=Minimal Assistance 1=Total Assistance 5=Supervision or Setup 2=Maximal Assistance 6=Modified [place] 3=Moderate Assistance 7=Complete IndependenceIRFPAI Quality Coding Scale 6 Independent with activity with or without an assistive device 5 Patient requires set up or clean up by helper. Patient completes activity by themselves 4 Supervision or touching assist (CGA). [place] provide cues , steadying assist 3 The helper provides less than half the effort to complete the activity 2 The helper provides more than half the effort to complete the activity 1 Dependent. The helper does all the effort to complete an activity 7 Patient refused to complete or attempt activity 9 The patient did not perform the activity before the current illness or injury 88 Not attempted due to Medical conditions or safety concerns Grooming (FIM): 5 Bathing (FIM): 5 Upper Body (FIM): 5 Lower Body Dressing (FIM): 5 Toileting (FIM): 5 Toilet/Commode Transfer (FIM): 5 Other Treatment Gait to therapy gym with FWW. Pt completed fine motor activity with nuts and bolts with 1# weights in place on bilateral UE to increase strength and fine motor coordination. Pt completed task with increased time. Pt returned to room, transferred to chair with SBA. Pt sitting in chair with needs met after session. OT Short Term Goals Short Term Goals Time Frame: Nov 16, 2016 Bathing(FIM): 5 Upper Body Dressing(FIM): 5 Lower Body Dressing(FIM): 5 Toileting(FIM): 5 Shower Transfer(FIM): 4 (CGA) Additional Short Term Goals: 1-Demonstrate ADL Tasks, 2-Verbalize Understanding , 3-ImproveStrength/Leopoldo 1=Demonstrate adherence to instructed precautions during ADL tasks. 2=Patient will verbalize/demonstrate understanding of assistive devices/ modifications for ADL. 3=Patient will improve strength/tolerance for activity to enable patient to perform ADL's. OT [employer] Goals [facility] Goals Time Frame: Nov 30, 2016 Eating (FIM): 6 Eating (QC): 6 Groomin Oral Hygiene (QC): 6 Bathing(FIM): 5 Shower/Bathe Self (QC): 5 Upper Body Dressing(FIM): 6 Upper Body Dressing (QC): 6 Lower Body Dressing(FIM): 6 Lower Body Dressing (QC): 6 On/Off Footwear (QC): 6 Toileting(FIM): 6 Toileting Hygiene (QC): 6 Toilet/Commode Transfer(FIM): 6 Toilet/Commode Transfer (QC): 6 Shower Transfer(FIM): 5 Additional Goals: 1-Demonstrate ADL Tasks, 2-Verbalize Understanding, 3- ImproveStrength/Leopoldo 1=Demonstrate adherence to instructed precautions during ADL tasks. 2=Patient will verbalize/demonstrate understanding of assistive devices/ modifications for ADL. 3=Patient will improve strength/tolerance for activity to enable patient to perform ADL's. OT Education/Plan Problem List/Assessment Pt to benefit from skilled OT intervention for ADL training, transfers, strengthening, and home safety education to maximize level of function and allow safe return home with family support. Discharge Recommendations Plan/Recommendations: Continue POC Treatment Plan/Plan of Care Patient would benefit from OT for education, treatment and training to promote independence in ADL's, mobility, safety and/or upper extremity function for ADL' s. Plan of Care: ADL Retraining, Functional Mobility, Group Exercise/Act as Ind, UE Funct Exercise/Act Treatment Duration: Nov 30, 2016 Visits Per Week: 10-11 Minutes/Day (M-F): 60-90 Minutes/Day (Sat/Swain): PRN Agreement: Yes Rehab Potential: Fair Time/GCodes Start Time: 08:00 Stop Time: 09:00 Total Time Billed (hr/min): 60 Billed Treatment Time 1 visit. ADLx3(45minutes), EX(15minutes) PRESTON MONTANO OT Nov 13, 2016 13:35
--- NOTE | 2016-11-13 14:31 | Therapy Group Daily Note ---
Therapy Daily Group Note Exercises LE Seated Exercise, UE Exercise Other/Notes Pt was an active participant in OT/PT group. She introduced herself to the group by sharing a place she'd like to visit or a favorite place she has visited. She participated in a memory activity and was able to recall items several minutes after viewing them. She did seated UE and LE exercises and stretches and shared "Words of [place] or Encouragement" with the rest of the group. She returned to her room, in bed, with all needs met. Start Time: 13:00 Stop Time: 14:10 Total Billed Treatment Time: 70 Total Billed Treatment visit, 70 minutes group EMILE FERNANDEZ OT Nov 13, 2016 14:31
--- NOTE | 2016-11-13 15:17 | PM & R (SOAP) Progress Note ---
Subjective Subjective/Events-last exam Patient was seen in her room this AM Patient progressing well with therapies Patient SBA for transfers.Appreciate Cardiology note Objective Exam Last Set of Vital Signs Vital Signs Date Time Temp Pulse Resp B/P Pulse Ox O2 Delivery O2 Flow Rate FiO2 11/13/16 09:00 Room Air 11/13/16 05:07 97.0 72 18 94/51 95 Capillary Refill : I&O Intake and Output 11/13/16 00:00 Intake Total 1300 ml Balance 1300 ml Intake Oral 1300 ml # Voids 5 General: Alert, Oriented X3, Cooperative HEENT: Atraumatic, PERRLA Neck: Supple, No JVD, No Thyromegaly Lungs: Clear to Auscultation Heart: Regular Rate, Normal S1, Normal S2, No Murmurs Abdomen: Normal Bowel Sounds, Soft, No Tenderness, No Hepatosplenomegaly, No Masses Extremities: No Clubbing, No Cyanosis, No Edema, Normal Pulses, No Tenderness/ Swelling Skin: No Rashes, No Breakdown, No Significant Lesion Neuro: Normal Gait, Normal Speech, Strength at 5/5 X4 Ext, Normal Tone, Sensation Intact Psych/Mental Status: Mental Status NL, Mood NL Results Lab Laboratory Tests 11/10/16 15:46: Glucometer 50*L 11/10/16 16:15: Glucometer 64L 11/10/16 18:24: Glucometer 72 11/10/16 20:25: Glucometer 55*L 11/10/16 21:46: Glucometer 79 11/10/16 23:23: Glucometer 45*L 11/11/16 01:01: Glucometer 45*L 11/11/16 03:28: Glucometer 53*L 11/11/16 05:08: Glucometer 66L 11/11/16 08:59: Glucometer 58*L 11/11/16 09:49: Glucometer 116H 11/11/16 12:41: Glucometer 68L 11/11/16 18:01: Glucometer 129H 11/12/16 00:02: Glucometer 142H 11/12/16 05:17: Alanine Aminotransferase (ALT/SGPT) 92H, Albumin 3.3, Alkaline Phosphatase 43, Anion Gap 10, Aspartate Amino Transf (AST/SGOT) 70H, BUN/Creatinine Ratio 27, Basophils # (Auto) 0.0, Basophils (%) (Auto) 0, Blood Urea Nitrogen 29H, Calcium Level 8.9, Carbon Dioxide Level 23, Chloride Level 102, Creatinine 1.07 , Eosinophils # (Auto) 0.1, Eosinophils (%) (Auto) 2, Estimat Glomerular Filtration Rate 50, Glucose Level 186H, Hematocrit 29L, Hemoglobin 9.7L, Lymphocytes # (Auto) 2.6, Lymphocytes (%) (Auto) 35, Mean Corpuscular Hemoglobin 30, Mean Corpuscular Hemoglobin Concent 34, Mean Corpuscular Volume 89, Mean Platelet Volume 9.9, Monocytes # (Auto) 0.9, Monocytes (%) (Auto) 12, Neutrophils # (Auto) 3.8, Neutrophils (%) (Auto) 51, Platelet Count 198, Potassium Level 4.1, Red Blood Count 3.22L, Red Cell Distribution Width 15.3H, Sodium Level 135, Total Bilirubin 0.7, Total Protein 5.5L, White Blood Count 7.4 11/12/16 05:26: Glucometer 190H 11/12/16 12:01: Glucometer 145H 11/12/16 17:50: Glucometer 133H 11/12/16 23:06: Glucometer 146H 11/13/16 06:07: Glucometer 135H Assessment/Plan Assessment General debil s/p NSTEMI CAD s/p Cabg remote PVD HLP on statin HTN controlled DM controlled Plan Continue PT/OT TEam Conference tomorrow 11/14/16 F/U with Cardiology and Hospitalist as per RADHA Padron MD Nov 13, 2016 15:17
[2016-11-13 18:05] VITALS: BP 97/56
[2016-11-13] MEDS: ATORVASTATIN 80 MG (LIPITOR) TABLET PO SCH (20:24)
[2016-11-14 05:14] VITALS: BP 99/59
[2016-11-14] MEDS: inSUlin (REGULAR) HUMAN 1 UNIT/0.01 ML (CHARGE PER UNIT) SC SCH ×4 (05:43→17:06)
[2016-11-14] MEDS: metFORMIN 850 MG (GLUCOPHAGE) TAB PO SCH (06:25)
[2016-11-14] MEDS: MULTIVIT W/MINERALS TAB (THERAGRAN M) PO SCH (06:25)
[2016-11-14] MEDS: PANTOPRAZOLE 20 MG TABLET (PROTONIX) PO SCH (06:25)
[2016-11-14 07:55] VITALS: BP 111/64
[2016-11-14] MEDS: FAMOTIDINE 20 MG (PEPCID) TABLET PO SCH (07:58)
[2016-11-14] MEDS: TICAGRELOR 90 MG TABLET (BRILINTA) PO SCH ×2 (07:58→20:56)
[2016-11-14] MEDS: amLODIPine 5 MG (NORVASC) TAB PO SCH (07:59)
[2016-11-14] MEDS: ASPIRIN E.C. 81 MG (ECOTRIN) TAB PO SCH (07:59)
[2016-11-14] MEDS: HYDROCHLOROTHIAZIDE 25 MG (HCTZ) TAB PO SCH (08:00)
[2016-11-14] MEDS: CARVEDILOL 12.5 MG (COREG) TABLET PO SCH ×2 (08:00→20:56)
[2016-11-14] MEDS: lisINopril 20 MG (ZESTRIL) TAB PO SCH (08:00)
[2016-11-14] MEDS: ISOSORBIDE MONONITRATE 30 MG (IMDUR) TAB PO SCH ×2 (08:00→20:56)
[2016-11-14] MEDS: OMEGA 3 (FISH OIL) 1000 MG CAP PO SCH (08:01)
[2016-11-14] MEDS: ENOXAPARIN 40 MG/0.4 ML (LOVENOX) SYR SC SCH (08:02)
[2016-11-14] MEDS: MICONAZOLE 2% POWDER (DESENEX AF) 90 GM TOP SCH ×2 (08:03→20:57)
[2016-11-14] MEDS: CALCIUM CARBONATE 500 MG (TUMS) TAB.CHEW PO SCH (08:14)
--- NOTE | 2016-11-14 08:31 | Cardiology Progress Note ---
Subjective Subjective/Events-last exam Patient in bed. No new complaints. Denies any dizziness or lightheadedness. Denies any CP Objective-Cardiology Exam Last Set of Vital Signs Vital Signs 11/14/16 05:14 Temp 97.3 Pulse 86 Resp 16 B/P 99/59 Pulse Ox 96 O2 Delivery Room Air Capillary Refill : I&O Intake and Output 11/14/16 00:00 Intake Total 1720 ml Balance 1720 ml Intake Oral 1720 ml # Voids 5 General: Alert, Oriented X3, Cooperative HEENT: Atraumatic, PERRLA Neck: Supple, No JVD, No Thyromegaly Lungs: Clear to Auscultation Heart: Regular Rate, Normal S1, Normal S2, No Murmurs Abdomen: Normal Bowel Sounds, Soft, No Tenderness, No Hepatosplenomegaly, No Masses Extremities: No Clubbing, No Cyanosis, No Edema, Normal Pulses, No Tenderness/ Swelling Skin: No Rashes, No Breakdown, No Significant Lesion Neuro: Normal Gait, Normal Speech, Strength at 5/5 X4 Ext, Normal Tone, Sensation Intact Psych/Mental Status: Mental Status NL, Mood NL A/P-Cardiology Admission Diagnosis NSTEMI CAD CARLO PVD Assessment/Plan Non-ST elevation myocardial infarction, cardiac catheterization showed extensive coronary artery disease, medical therapy is recommended, reporting improvement. Continue on Brilinta and ASA. Continue to monitor. Nausea, loss of appetite, improved. Continue to monitor. Coronary artery disease, history of CABG 3 in 1996 with vein graft to diagonal , vein graft to OM 2 and FOX to LAD. Most recent cardiac catheterization August 2012 and was referred to Dr. Garnica for possible redo CABG, however it was deemed patient is not a good surgical candidate and vessels are very small and recommended continuation of medical management, repeat cardiac catheterization which showed worsening of her coronary artery disease, small vessel, inoperable. Medical therapy is recommended Peripheral vascular disease-monitored by heart and vascular care, continue to monitor at this time. No changes are recommended. Carotid artery stenosis with history of bilateral CEA, followed by heart and vascular care, continue to monitor. Renal artery stenosis-history of stent to right renal artery in June 2012, followed by heart and vascular care. Hypertension, currently borderline hypotensive. Norvasc was decreased to 5mg yesterday. Discussed discontinuing Norvasc, however, patient was hesitant to do so. Will continue to monitor. May consider stopping HCTZ if BP remains low. Hyperlipidemia, continue to monitor lipids Diabetes mellitus, followed by primary care physician. Ultra-rapid Plavix metabolizer Obesity, BMI is 36. Patient was educated on weight loss. Clinical Quality Measures DVT/VTE Risk/Contraindication: Risk Factor Score Per Nursin RFS Level Per Nursing on Admit: 4+=Very High DEJON GRADY Nov 14, 2016 08:30
--- NOTE | 2016-11-14 09:29 | PM & R (SOAP) Progress Note ---
Subjective Subjective/Events-last exam Patient was seen in her room this AM Feeling better Appreciate Cardiology note Blood pressure trending downward Cardiology adjusting antihypertensive Patient SBA for transfers Objective Exam Last Set of Vital Signs Vital Signs Date Time Temp Pulse Resp B/P Pulse Ox O2 Delivery O2 Flow Rate FiO2 11/14/16 05:14 97.3 86 16 99/59 96 Room Air Capillary Refill : I&O Intake and Output 11/14/16 00:00 Intake Total 1720 ml Balance 1720 ml Intake Oral 1720 ml # Voids 5 General: Alert, Oriented X3, Cooperative HEENT: Atraumatic, PERRLA Neck: Supple, No JVD, No Thyromegaly Lungs: Clear to Auscultation Heart: Regular Rate, Normal S1, Normal S2, No Murmurs Abdomen: Normal Bowel Sounds, Soft, No Tenderness, No Hepatosplenomegaly, No Masses Extremities: No Clubbing, No Cyanosis, No Edema, Normal Pulses, No Tenderness/ Swelling Skin: No Rashes, No Breakdown, No Significant Lesion Neuro: Normal Gait, Normal Speech, Strength at 5/5 X4 Ext, Normal Tone, Sensation Intact Psych/Mental Status: Mental Status NL, Mood NL Results Lab Laboratory Tests 11/11/16 09:49: Glucometer 116H 11/11/16 12:41: Glucometer 68L 11/11/16 18:01: Glucometer 129H 11/12/16 00:02: Glucometer 142H 11/12/16 05:17: Alanine Aminotransferase (ALT/SGPT) 92H, Albumin 3.3, Alkaline Phosphatase 43, Anion Gap 10, Aspartate Amino Transf (AST/SGOT) 70H, BUN/Creatinine Ratio 27, Basophils # (Auto) 0.0, Basophils (%) (Auto) 0, Blood Urea Nitrogen 29H, Calcium Level 8.9, Carbon Dioxide Level 23, Chloride Level 102, Creatinine 1.07 , Eosinophils # (Auto) 0.1, Eosinophils (%) (Auto) 2, Estimat Glomerular Filtration Rate 50, Glucose Level 186H, Hematocrit 29L, Hemoglobin 9.7L, Lymphocytes # (Auto) 2.6, Lymphocytes (%) (Auto) 35, Mean Corpuscular Hemoglobin 30, Mean Corpuscular Hemoglobin Concent 34, Mean Corpuscular Volume 89, Mean Platelet Volume 9.9, Monocytes # (Auto) 0.9, Monocytes (%) (Auto) 12, Neutrophils # (Auto) 3.8, Neutrophils (%) (Auto) 51, Platelet Count 198, Potassium Level 4.1, Red Blood Count 3.22L, Red Cell Distribution Width 15.3H, Sodium Level 135, Total Bilirubin 0.7, Total Protein 5.5L, White Blood Count 7.4 11/12/16 05:26: Glucometer 190H 11/12/16 12:01: Glucometer 145H 11/12/16 17:50: Glucometer 133H 11/12/16 23:06: Glucometer 146H 11/13/16 06:07: Glucometer 135H 11/13/16 12:02: Glucometer 130H 11/13/16 18:05: Glucometer 157H 11/14/16 00:03: Glucometer 113H 11/14/16 05:33: Glucometer 115H Assessment/Plan Assessment General debil s/p NSTEMI CAD s/p Cabg remote PVD HLP on statin HTN controlled DM controlled Plan Continue PT/OT F/U with Cardiology and Hospitalist as per their schedule Team Conference later today-See report for full functional update and POC and RADHA LEACH MD Nov 14, 2016 09:29
--- NOTE | 2016-11-14 09:30 | Physical Therapy Daily Note ---
PT Daily Note-Current Subjective Patient in bed pre tx, agrees to PT, no complaints of pain. Appearance Patient sitting EOB post tx with nurse call, phone, tray, all needs met. Mental Status Patient Orientation: Normal For Age Transfers Functional [place] Measure 0=Not Assessed/NA 4=Minimal Assistance 1=Total Assistance 5=Supervision or Setup 2=Maximal Assistance 6=Modified [place] 3=Moderate Assistance 7=Complete IndependenceIRFPAI Quality Coding Scale 6 Independent with activity with or without an assistive device 5 Patient requires set up or clean up by helper. Patient completes activity by themselves 4 Supervision or touching assist (CGA). [place] provide cues , steadying assist 3 The helper provides less than half the effort to complete the activity 2 The helper provides more than half the effort to complete the activity 1 Dependent. The helper does all the effort to complete an activity 7 Patient refused to complete or attempt activity 9 The patient did not perform the activity before the current illness or injury 88 Not attempted due to Medical conditions or safety concerns Transfers (B, C, W/C) (FIM): 5 Scootin Rollin Supine to/from Sit: 6 Sit to/from Stand: 5 cues for safety and hand placement, will almost always pull up to stand from walker Gait Training Gait (FIM): 5 Distance: 300', 150' Gait Level of Assist: 5 Gait Persons Needed: 1 Gait Assistive Device: FWW slow, tends to hit obstacles with the left wheel on the walker Exercises Standing: Hip Abduction, Hamstring curls, Heel/toe raises, Marching, Mini squats, Step-ups (x10 each side) Standing Reps: 20 NuStep Minutes: 15 NuStep Workload: 4 Treatments bed mobility and transfers, ambulation, functional strengthening Assessment Current Status: Fair Progress endurance improving but she still fatigues quickly and needs frequent rest breaks PT Short Term Goals Short Term Goals Time Frame: Nov 16, 2016 Gait (FIM): 4 Gait Distance Comment: 150' Gait Level of Assist: 4 Gait Assistive Device: FWW PT Fpc Goals Fpc Goals PT Fpc Goals Time Frame: Nov 30, 2016 Transfers (B,C,W/C) (FIM): 6 Sit to Lying (QC): 6 Lying-Sitting on Side/Bed(QC): 6 Sit to Stand (QC): 6 Rollin Roll Left to Right (QC): 6 Chair/Qqi-to-Twrer Xfer(QC): 6 Car Transfer (QC): 4 Gait (FIM): 5 Distance: 200' Walk 10 feet (QC): 4 Walk 10ft-Uneven Surface(QC): 4 Walk 50ft with 2 Turns (QC): 4 Walk 150 ft (QC): 4 Gait Level of Assist: 5 Gait Assistive Device: FWW Stairs (FIM): 2 # of Steps: 4 1 Step (curb) (QC): 4 4 Steps (QC): 4 12 Steps (QC): 88 Stairs Level Of Assist: 4 Picking up an Object (QC): 88 PT Plan Problem List Problem List: Activity Tolerance, Functional Strength, Safety, Balance, Gait, Transfer Treatment/Plan Treatment Plan: Continue Plan of Care Treatment Plan: Bed Mobility, Education, Functional Activity Leopoldo, Functional Strength, Group Therapy, Gait, Safety, Therapeutic Exercise, Transfers Treatment Duration: Nov 30, 2016 Visits Per Week: 10-11 Minutes/Day (M-F): 60-90 Minutes/Day (Sat/Swain): 15-30 Safety Risks/Education Patient Education: Gait Training, Transfer Techniques, Safety Issues Teaching Recipient: Patient Teaching Methods: Demonstration, Discussion Response to Teaching: Reinforcement Needed Time/GCodes Time In: 830 Time Out: 930 Total Billed Treatment Time: 60 Total Billed Treatment 1 visit EX 30 min GT 30 min WAYNE BURGESS PT Nov 14, 2016 09:30
--- NOTE | 2016-11-14 11:18 | Occupational Ther Daily Note ---
OT Current Status-Daily Note Subjective Pt in bed, agrees to treatment. Pt reports fatigue this am. Mental Status/Objective Functional [place] Measure 0=Not Assessed/NA 4=Minimal Assistance 1=Total Assistance 5=Supervision or Setup 2=Maximal Assistance 6=Modified [place] 3=Moderate Assistance 7=Complete [place] ADL-Treatment Pt supine to sit with modified independence. Sit to stand with SBA. Gait to restroom with FWW. Toilet transfer with SBA using grab bar. Pt able to complete toileting hygiene and clothing management with SBA. Pt washed hands and completed oral care with modified independence while standing at sink. Pt declined shower, states she will take one tomorrow when it is warmer. Pt retrieved clothing from closet with SBA using 4WW. Sponge bath completed seated EOB. Pt washes all areas with set up and increased time. UE dressing with SBA. Pt dons underwear and socks with SBA. Pt mason hair with modified independence. Functional [place] Measure 0=Not Assessed/NA 4=Minimal Assistance 1=Total Assistance 5=Supervision or Setup 2=Maximal Assistance 6=Modified [place] 3=Moderate Assistance 7=Complete IndependenceIRFPAI Quality Coding Scale 6 Independent with activity with or without an assistive device 5 Patient requires set up or clean up by helper. Patient completes activity by themselves 4 Supervision or touching assist (CGA). [place] provide cues , steadying assist 3 The helper provides less than half the effort to complete the activity 2 The helper provides more than half the effort to complete the activity 1 Dependent. The helper does all the effort to complete an activity 7 Patient refused to complete or attempt activity 9 The patient did not perform the activity before the current illness or injury 88 Not attempted due to Medical conditions or safety concerns Grooming (FIM): 6 Oral Hygiene (QC): 6 Bathing (FIM): 5 Shower/Bathe Self (QC): 5 Upper Body (FIM): 5 Upper Body Dressing (QC): 4 (Supervision) Lower Body Dressing (FIM): 5 Lower Body Dressing (QC): 4 (Supervision) On/Off Footwear (QC): 5 Toileting (FIM): 5 Toileting Hygiene (QC): 4 (Supervision) Toilet/Commode Transfer (FIM): 5 Other Treatment Gait to therapy gym with FWW. Pt performed bilateral UE exercises to increase strength and activity tolerance needed for ADLs and transfers. Pt performed shoulder flexion, forward press, biceps curls, and wrist flex/ext x20 reps with dowel becca. Rest breaks between exercises. Pt returned to room, siting EOB with needs met after session. OT Short Term Goals Short Term Goals Time Frame: Nov 16, 2016 Bathing(FIM): 5 (met) Upper Body Dressing(FIM): 5 (met ) Lower Body Dressing(FIM): 5 (met) Toileting(FIM): 5 (met) Shower Transfer(FIM): 4 (CGA) Additional Short Term Goals: 1-Demonstrate ADL Tasks, 2-Verbalize Understanding , 3-ImproveStrength/Leopoldo 1=Demonstrate adherence to instructed precautions during ADL tasks. 2=Patient will verbalize/demonstrate understanding of assistive devices/ modifications for ADL. 3=Patient will improve strength/tolerance for activity to enable patient to perform ADL's. OT Long-Term Goals Long-Term Goals Time Frame: Nov 30, 2016 Eating (FIM): 6 Eating (QC): 6 Groomin Oral Hygiene (QC): 6 Bathing(FIM): 5 Shower/Bathe Self (QC): 5 Upper Body Dressing(FIM): 6 Upper Body Dressing (QC): 6 Lower Body Dressing(FIM): 6 Lower Body Dressing (QC): 6 On/Off Footwear (QC): 6 Toileting(FIM): 6 Toileting Hygiene (QC): 6 Toilet/Commode Transfer(FIM): 6 Toilet/Commode Transfer (QC): 6 Shower Transfer(FIM): 5 Additional Goals: 1-Demonstrate ADL Tasks, 2-Verbalize Understanding, 3- ImproveStrength/Leopoldo 1=Demonstrate adherence to instructed precautions during ADL tasks. 2=Patient will verbalize/demonstrate understanding of assistive devices/ modifications for ADL. 3=Patient will improve strength/tolerance for activity to enable patient to perform ADL's. OT Education/Plan Problem List/Assessment Pt to benefit from skilled OT intervention for ADL training, transfers, strengthening, and home safety education to maximize level of function and allow safe return home with family support. Discharge Recommendations Plan/Recommendations: Continue POC Treatment Plan/Plan of Care Patient would benefit from OT for education, treatment and training to promote independence in ADL's, mobility, safety and/or upper extremity function for ADL' s. Plan of Care: ADL Retraining, Functional Mobility, Group Exercise/Act as Ind, UE Funct Exercise/Act Treatment Duration: Nov 30, 2016 Visits Per Week: 10-11 Minutes/Day (M-F): 60-90 Minutes/Day (Sat/Swain): PRN Agreement: Yes Rehab Potential: Fair Time/GCodes Start Time: 10:00 Stop Time: 11:00 Total Time Billed (hr/min): 60 Billed Treatment Time 1 visit, ADLx3(45minutes), EX(15minutes) PRESTON MONTANO OT Nov 14, 2016 11:18
--- NOTE | 2016-11-14 11:48 | Cardiology Progress Note ---
Subjective Subjective/Events-last exam patient is feeling better, seen this morning, receiving physical therapy. Denied any chest pain. Review of Systems General: No Chills, No Night Sweats, No Fatigue, No Malaise, No Appetite, No Other HEENT: No Head Aches, No Visual Changes, No Eye Pain, No Ear Pain, No Dysphasia , No Sinus Congestion, No Post Nasal Drip, No Sore Throat, No Other Pulmonary: No Dyspnea, No Cough, No Pleuritic Chest Pain, No Other Cardiovascular: No: Chest Pain, Edema, Lt Headedness, Orthopnea, Other, Palpitations, Paroxysmal Noc. Dyspnea Objective-Cardiology Exam Last Set of Vital Signs Vital Signs 11/14/16 05:14 Temp 97.3 Pulse 86 Resp 16 B/P 99/59 Pulse Ox 96 O2 Delivery Room Air Capillary Refill : I&O Intake and Output 11/13/16 23:59 Intake Total 1720 ml Balance 1720 ml Intake Oral 1720 ml # Voids 5 General: Alert, Oriented X3, Cooperative HEENT: Atraumatic, PERRLA Neck: Supple, No JVD, No Thyromegaly Lungs: Clear to Auscultation Heart: Regular Rate, Normal S1, Normal S2, No Murmurs Abdomen: Normal Bowel Sounds, Soft, No Tenderness, No Hepatosplenomegaly, No Masses Extremities: No Clubbing, No Cyanosis, No Edema, Normal Pulses, No Tenderness/ Swelling Skin: No Rashes, No Breakdown, No Significant Lesion Neuro: Normal Gait, Normal Speech, Strength at 5/5 X4 Ext, Normal Tone, Sensation Intact Psych/Mental Status: Mental Status NL, Mood NL Results Lab Laboratory Tests Test 11/13/16 12:02 11/13/16 18:05 11/14/16 00:03 11/14/16 05:33 Range/Units Glucometer 130 H 157 H 113 H 115 H 70-110 MG/DL Test 11/14/16 11:26 Range/Units Glucometer 136 H 70-110 MG/DL A/P-Cardiology Admission Diagnosis NSTEMI CAD CARLO PVD Assessment/Plan Non-ST elevation myocardial infarction, cardiac catheterization showed extensive coronary artery disease, medical therapy is recommended, reporting improvement. Continue on Brilinta and ASA. Continue to monitor. Nausea, loss of appetite, improved. Continue to monitor. Coronary artery disease, history of CABG 3 in 1996 with vein graft to diagonal , vein graft to OM 2 and FOX to LAD. Most recent cardiac catheterization August 2012 and was referred to Dr. Garnica for possible redo CABG, however it was deemed patient is not a good surgical candidate and vessels are very small and recommended continuation of medical management, repeat cardiac catheterization which showed worsening of her coronary artery disease, small vessel, inoperable. Medical therapy is recommended Peripheral vascular disease-monitored by heart and vascular care, continue to monitor at this time. No changes are recommended. Carotid artery stenosis with history of bilateral CEA, followed by heart and vascular care, continue to monitor. Renal artery stenosis-history of stent to right renal artery in June 2012, followed by heart and vascular care. Hypertension, currently borderline hypotensive. Norvasc was decreased to 5mg yesterday. Discussed discontinuing Norvasc, however, patient was hesitant to do so. Will continue to monitor. May consider stopping HCTZ if BP remains low. Hyperlipidemia, continue to monitor lipids Diabetes mellitus, followed by primary care physician. Ultra-rapid Plavix metabolizer Obesity, BMI is 36. Patient was educated on weight loss. Clinical Quality Measures DVT/VTE Risk/Contraindication: Risk Factor Score Per Nursin RFS Level Per Nursing on Admit: 4+=Very High CITLALLI BEASLEY MD Nov 14, 2016 11:48
--- NOTE | 2016-11-14 14:52 | Therapy Group Daily Note ---
Therapy Daily Group Note Other/Notes Pt went from supine to sitting EOB by self. Then requested to use bathroom, SBA for transfer to/from toilet and manipulating clothing/hygiene. Pt ambulated with FWW to [facility] for OT/PT group. Group consisted of introductions (name, place living, what do you do when spring comes), socialization, word association activity. Pt was able to state introduction appropriately. Pt contributed to discussions though quietly. Complete word association well and worked in a group to find the correct answer to questions. After group, pt ambulated to room with SBA using FWW then laid down in bed. Call light/phone in reach. All needs met in room. Start Time: 13:00 Stop Time: 14:15 Total Billed Treatment Time: 75 Total Billed Treatment 1-GRP MARY FRANK Nov 14, 2016 14:51
[2016-11-14 18:00] VITALS: BP 131/67
[2016-11-14] MEDS: ATORVASTATIN 80 MG (LIPITOR) TABLET PO SCH (20:56)
[2016-11-15 05:00] VITALS: BP 132/54
[2016-11-15] MEDS: inSUlin (REGULAR) HUMAN 1 UNIT/0.01 ML (CHARGE PER UNIT) SC SCH ×4 (05:15→18:00)
[2016-11-15] MEDS: metFORMIN 850 MG (GLUCOPHAGE) TAB PO SCH (06:03)
[2016-11-15] MEDS: MULTIVIT W/MINERALS TAB (THERAGRAN M) PO SCH (06:03)
[2016-11-15] MEDS: PANTOPRAZOLE 20 MG TABLET (PROTONIX) PO SCH (06:03)
--- NOTE | 2016-11-15 08:06 | Cardiology Progress Note ---
Subjective Subjective/Events-last exam Patient sitting at side of bed, no new complaint. Denies any CP or dyspnea. Concerned about her low blood pressure. Review of Systems General: No Night Sweats, No Fatigue, No Malaise HEENT: No Visual Changes, No Dysphasia Pulmonary: No Dyspnea, No Cough Cardiovascular: No: Chest Pain, Orthopnea, Palpitations Gastrointestinal: No: Abdominal Pain, Nausea, Vomiting Genitourinary: No Dysuria, No Frequency Musculoskeletal: No: neck pain Neurological: No: Numbness, Weakness Objective-Cardiology Exam Last Set of Vital Signs Vital Signs 11/15/16 05:00 Temp 97.9 Pulse 75 Resp 18 B/P 132/54 Pulse Ox 97 O2 Delivery Room Air Capillary Refill : I&O Intake and Output 11/15/16 00:00 Intake Total 1470 ml Balance 1470 ml Intake Oral 1470 ml # Voids 8 # Bowel Movements 1 General: Alert, Oriented X3, Cooperative HEENT: Atraumatic, PERRLA Neck: Supple, No JVD, No Thyromegaly Lungs: Clear to Auscultation Heart: Regular Rate, Normal S1, Normal S2, No Murmurs Abdomen: Normal Bowel Sounds, Soft, No Tenderness, No Hepatosplenomegaly, No Masses Extremities: No Clubbing, No Cyanosis, No Edema, Normal Pulses, No Tenderness/ Swelling Skin: No Rashes, No Breakdown, No Significant Lesion Neuro: Normal Gait, Normal Speech, Strength at 5/5 X4 Ext, Normal Tone, Sensation Intact Psych/Mental Status: Mental Status NL, Mood NL A/P-Cardiology Admission Diagnosis NSTEMI CAD CARLO PVD Assessment/Plan Non-ST elevation myocardial infarction, cardiac catheterization showed extensive coronary artery disease, medical therapy is recommended, reporting improvement. Continue on Brilinta and ASA. Continue to monitor. Nausea, loss of appetite, improved. Continue to monitor. Coronary artery disease, history of CABG 3 in 1996 with vein graft to diagonal , vein graft to OM 2 and FOX to LAD. Most recent cardiac catheterization August 2012 and was referred to Dr. Garnica for possible redo CABG, however it was deemed patient is not a good surgical candidate and vessels are very small and recommended continuation of medical management, repeat cardiac catheterization which showed worsening of her coronary artery disease, small vessel, inoperable. Medical therapy is recommended Peripheral vascular disease-monitored by heart and vascular care, continue to monitor at this time. No changes are recommended. Carotid artery stenosis with history of bilateral CEA, followed by heart and vascular care, continue to monitor. Renal artery stenosis-history of stent to right renal artery in June 2012, followed by heart and vascular care. Hypertension,patient was hypotensive yesterday with dizziness. I will d/c HCTZ at this time and continue to monitor BP/HR Hyperlipidemia, continue to monitor lipids Diabetes mellitus, followed by primary care physician. Ultra-rapid Plavix metabolizer Obesity, BMI is 36. Patient was educated on weight loss. Clinical Quality Measures DVT/VTE Risk/Contraindication: Risk Factor Score Per Nursin RFS Level Per Nursing on Admit: 4+=Very High DEJON GRADY Nov 15, 2016 08:06
[2016-11-15 08:15] VITALS: BP 137/70
[2016-11-15] MEDS: ASPIRIN E.C. 81 MG (ECOTRIN) TAB PO SCH (08:20)
[2016-11-15] MEDS: ISOSORBIDE MONONITRATE 30 MG (IMDUR) TAB PO SCH ×2 (08:20→20:34)
[2016-11-15] MEDS: CALCIUM CARBONATE 500 MG (TUMS) TAB.CHEW PO SCH (08:21)
[2016-11-15] MEDS: amLODIPine 5 MG (NORVASC) TAB PO SCH (08:21)
[2016-11-15] MEDS: TICAGRELOR 90 MG TABLET (BRILINTA) PO SCH ×2 (08:21→20:34)
[2016-11-15] MEDS: CARVEDILOL 12.5 MG (COREG) TABLET PO SCH ×2 (08:21→20:35)
[2016-11-15] MEDS: OMEGA 3 (FISH OIL) 1000 MG CAP PO SCH (08:21)
[2016-11-15] MEDS: FAMOTIDINE 20 MG (PEPCID) TABLET PO SCH (08:21)
[2016-11-15] MEDS: lisINopril 20 MG (ZESTRIL) TAB PO SCH (08:21)
[2016-11-15] MEDS: ENOXAPARIN 40 MG/0.4 ML (LOVENOX) SYR SC SCH (08:22)
[2016-11-15] MEDS: MICONAZOLE 2% POWDER (DESENEX AF) 90 GM TOP SCH ×2 (08:33→20:35)
--- NOTE | 2016-11-15 09:49 | PM & R (SOAP) Progress Note ---
Subjective Subjective/Events-last exam Patient was seen in her room this AM with RN Patient has rash in left groin- will RX Accucheks well controlled with adjustment in meds with d/cing of amaryl on 11/11/16.Patient SBA for gait and transfers with walker Cardiology managing HTN Objective Exam Last Set of Vital Signs Vital Signs Date Time Temp Pulse Resp B/P Pulse Ox O2 Delivery O2 Flow Rate FiO2 11/15/16 08:15 98.3 66 18 137/70 97 Room Air Capillary Refill : I&O Intake and Output 11/15/16 00:00 Intake Total 1470 ml Balance 1470 ml Intake Oral 1470 ml # Voids 8 # Bowel Movements 1 General: Alert, Oriented X3, Cooperative HEENT: Atraumatic, PERRLA Neck: Supple, No JVD, No Thyromegaly Lungs: Clear to Auscultation Heart: Regular Rate, Normal S1, Normal S2, No Murmurs Abdomen: Normal Bowel Sounds, Soft, No Tenderness, No Hepatosplenomegaly, No Masses Extremities: No Clubbing, No Cyanosis, No Edema, Normal Pulses, No Tenderness/ Swelling Skin: No Rashes, No Breakdown, No Significant Lesion, Other (Fungal appearing groin rash left) Neuro: Normal Gait, Normal Speech, Strength at 5/5 X4 Ext, Normal Tone, Sensation Intact Psych/Mental Status: Mental Status NL, Mood NL Results Lab Laboratory Tests 11/12/16 12:01: Glucometer 145H 11/12/16 17:50: Glucometer 133H 11/12/16 23:06: Glucometer 146H 11/13/16 06:07: Glucometer 135H 11/13/16 12:02: Glucometer 130H 11/13/16 18:05: Glucometer 157H 11/14/16 00:03: Glucometer 113H 11/14/16 05:33: Glucometer 115H 11/14/16 11:26: Glucometer 136H 11/14/16 16:17: Glucometer 142H Assessment/Plan Assessment General debil s/p NSTEMI CAD s/p Cabg remote PVD HLP on statin HTN controlled DM controlled Groin rash Plan Continue PT/OT F/U with Cardiology and Hospitalist as per their schedule Team Conference held yesterday-See report for full functional update and POC and ELOS Treat rash see orders Discharge set for Saturday11/17/16 to home with family RADHA CERDA MD Nov 15, 2016 09:48
--- NOTE | 2016-11-15 09:59 | Physical Therapy Daily Note ---
PT Daily Note-Current Subjective Patient sitting EOB pre tx, agrees to PT, no complaints of pain. Appearance Patient sitting EOB post tx, has nurse call, phone, tray, all needs met. Mental Status Patient Orientation: Normal For Age Transfers Functional [place] Measure 0=Not Assessed/NA 4=Minimal Assistance 1=Total Assistance 5=Supervision or Setup 2=Maximal Assistance 6=Modified [place] 3=Moderate Assistance 7=Complete IndependenceIRFPAI Quality Coding Scale 6 Independent with activity with or without an assistive device 5 Patient requires set up or clean up by helper. Patient completes activity by themselves 4 Supervision or touching assist (CGA). [place] provide cues , steadying assist 3 The helper provides less than half the effort to complete the activity 2 The helper provides more than half the effort to complete the activity 1 Dependent. The helper does all the effort to complete an activity 7 Patient refused to complete or attempt activity 9 The patient did not perform the activity before the current illness or injury 88 Not attempted due to Medical conditions or safety concerns Transfers (B, C, W/C) (FIM): 5 Sit to/from Stand: 5 cues for safety and hand placement, patient will almost always pull up from walker to stand even after having cues for this for so long Gait Training Gait (FIM): 5 Distance: 300'x2 Gait Level of Assist: 5 Gait Persons Needed: 1 Gait Assistive Device: FWW slow, no LOB Stair Training Stair Training: Handrails/: 2 handrails Stairs (FIM): 2 #of Steps: 4 Stairs: Pattern: Step to Level of Assist: 4 (CGA) Patient went up and down 4 steps with CGA, she used 2 handrails going up but one going down sideways Exercises Seated Therapy Exercises: Ankle pumps, Hip flexion Seated Reps: 20 Standing: Hamstring curls, Heel/toe raises, Marching, Mini squats Standing Reps: 20 LAQ alternating for 5 min NuStep Minutes: 15 NuStep Workload: 4 Treatments transfers, ambulation, functional strengthening, stair training Assessment Current Status: Fair Progress steadily improving strength and endurance but still needs cues for safety PT Short Term Goals Short Term Goals Time Frame: Nov 16, 2016 Gait (FIM): 4 Gait Distance Comment: 150' Gait Level of Assist: 4 Gait Assistive Device: FWW PT Land Surveyor Manager Goals Fci Goals PT Fci Goals Time Frame: Nov 30, 2016 Transfers (B,C,W/C) (FIM): 6 Sit to Lying (QC): 6 Lying-Sitting on Side/Bed(QC): 6 Sit to Stand (QC): 6 Rollin Roll Left to Right (QC): 6 Chair/Kyf-cy-Tvqow Xfer(QC): 6 Car Transfer (QC): 4 Gait (FIM): 5 Distance: 200' Walk 10 feet (QC): 4 Walk 10ft-Uneven Surface(QC): 4 Walk 50ft with 2 Turns (QC): 4 Walk 150 ft (QC): 4 Gait Level of Assist: 5 Gait Assistive Device: FWW Stairs (FIM): 2 # of Steps: 4 1 Step (curb) (QC): 4 4 Steps (QC): 4 12 Steps (QC): 88 Stairs Level Of Assist: 4 Picking up an Object (QC): 88 PT Plan Problem List Problem List: Activity Tolerance, Functional Strength, Safety, Balance, Gait, Transfer, Bed Mobility Treatment/Plan Treatment Plan: Continue Plan of Care Treatment Plan: Bed Mobility, Education, Functional Activity Leopoldo, Functional Strength, Group Therapy, Gait, Safety, Therapeutic Exercise, Transfers Treatment Duration: Nov 30, 2016 Visits Per Week: 10-11 Minutes/Day (M-F): 60-90 Minutes/Day (Sat/Swain): 15-30 Safety Risks/Education Patient Education: Gait Training, Transfer Techniques, Steps, Correct Positioning, Safety Issues Teaching Recipient: Patient Teaching Methods: Demonstration, Discussion Response to Teaching: Reinforcement Needed Time/GCodes Time In: 900 Time Out: 1000 Total Billed Treatment Time: 60 Total Billed Treatment 1 visit EX 30 min GT 30 min WAYNE BURGESS PT Nov 15, 2016 09:59
[2016-11-15] MEDS ORDERED: DOCUSATE SODIUM 100 MG (COLACE) CAP PO PRN (11:45)
--- NOTE | 2016-11-15 13:25 | Occupational Ther Daily Note ---
OT Current Status-Daily Note Subjective Pt in bed, agrees to treatment. Pt has no c/o pain. Mental Status/Objective Functional [place] Measure 0=Not Assessed/NA 4=Minimal Assistance 1=Total Assistance 5=Supervision or Setup 2=Maximal Assistance 6=Modified [place] 3=Moderate Assistance 7=Complete [place] ADL-Treatment Pt supine to sit with modified independence. Sit to stand with SBA. Pt retrieved clothing from closet with SBA using FWW. Gait to restroom. Transfer to shower bench with SBA. Pt completed sponge bath while seated. Able to wash all areas with SBA and increased time. UE dressing completed with set up. Pt donned underwear with SBA. Donned socks without assistance. Pt stood at sink to brush teeth and comb hair with modified independence. Increased time for ALD tasks. Functional [place] Measure 0=Not Assessed/NA 4=Minimal Assistance 1=Total Assistance 5=Supervision or Setup 2=Maximal Assistance 6=Modified [place] 3=Moderate Assistance 7=Complete IndependenceIRFPAI Quality Coding Scale 6 Independent with activity with or without an assistive device 5 Patient requires set up or clean up by helper. Patient completes activity by themselves 4 Supervision or touching assist (CGA). [place] provide cues , steadying assist 3 The helper provides less than half the effort to complete the activity 2 The helper provides more than half the effort to complete the activity 1 Dependent. The helper does all the effort to complete an activity 7 Patient refused to complete or attempt activity 9 The patient did not perform the activity before the current illness or injury 88 Not attempted due to Medical conditions or safety concerns Grooming (FIM): 6 Bathing (FIM): 5 Upper Body (FIM): 5 Lower Body Dressing (FIM): 5 OT Short Term Goals Short Term Goals Time Frame: Nov 16, 2016 Bathing(FIM): 5 (met) Upper Body Dressing(FIM): 5 (met ) Lower Body Dressing(FIM): 5 (met) Toileting(FIM): 5 (met) Shower Transfer(FIM): 4 (CGA) Additional Short Term Goals: 1-Demonstrate ADL Tasks, 2-Verbalize Understanding , 3-ImproveStrength/Leopoldo 1=Demonstrate adherence to instructed precautions during ADL tasks. 2=Patient will verbalize/demonstrate understanding of assistive devices/ modifications for ADL. 3=Patient will improve strength/tolerance for activity to enable patient to perform ADL's. OT Water Plant Operator Goals Water Plant Operator Goals Time Frame: Nov 30, 2016 Eating (FIM): 6 Eating (QC): 6 Groomin Oral Hygiene (QC): 6 Bathing(FIM): 5 Shower/Bathe Self (QC): 5 Upper Body Dressing(FIM): 6 Upper Body Dressing (QC): 6 Lower Body Dressing(FIM): 6 Lower Body Dressing (QC): 6 On/Off Footwear (QC): 6 Toileting(FIM): 6 Toileting Hygiene (QC): 6 Toilet/Commode Transfer(FIM): 6 Toilet/Commode Transfer (QC): 6 Shower Transfer(FIM): 5 Additional Goals: 1-Demonstrate ADL Tasks, 2-Verbalize Understanding, 3- ImproveStrength/Leopoldo 1=Demonstrate adherence to instructed precautions during ADL tasks. 2=Patient will verbalize/demonstrate understanding of assistive devices/ modifications for ADL. 3=Patient will improve strength/tolerance for activity to enable patient to perform ADL's. OT Education/Plan Problem List/Assessment Pt to benefit from skilled OT intervention for ADL training, transfers, strengthening, and home safety education to maximize level of function and allow safe return home with family support. Discharge Recommendations Plan/Recommendations: Continue POC Treatment Plan/Plan of Care Patient would benefit from OT for education, treatment and training to promote independence in ADL's, mobility, safety and/or upper extremity function for ADL' s. Plan of Care: ADL Retraining, Functional Mobility, Group Exercise/Act as Ind, UE Funct Exercise/Act Treatment Duration: Nov 30, 2016 Visits Per Week: 10-11 Minutes/Day (M-F): 60-90 Minutes/Day (Sat/Swain): PRN Agreement: Yes Rehab Potential: Fair Time/GCodes Start Time: 10:45 Stop Time: 11:45 Total Time Billed (hr/min): 60 Billed Treatment Time 1 visit, ADLx4(60minutes) PRESTON MONTANO OT Nov 15, 2016 13:24
--- NOTE | 2016-11-15 13:28 | Physical Therapy Daily Note ---
PT Daily Note-Current Subjective Patient in bed pre tx, agrees to PT, no complaints of pain. Appearance Patient on toilet post tx with nurse call. Mental Status Patient Orientation: Normal For Age Transfers Functional [place] Measure 0=Not Assessed/NA 4=Minimal Assistance 1=Total Assistance 5=Supervision or Setup 2=Maximal Assistance 6=Modified [place] 3=Moderate Assistance 7=Complete IndependenceIRFPAI Quality Coding Scale 6 Independent with activity with or without an assistive device 5 Patient requires set up or clean up by helper. Patient completes activity by themselves 4 Supervision or touching assist (CGA). [place] provide cues , steadying assist 3 The helper provides less than half the effort to complete the activity 2 The helper provides more than half the effort to complete the activity 1 Dependent. The helper does all the effort to complete an activity 7 Patient refused to complete or attempt activity 9 The patient did not perform the activity before the current illness or injury 88 Not attempted due to Medical conditions or safety concerns Transfers (B, C, W/C) (FIM): 6 Scootin Rollin Supine to/from Sit: 6 Sit to/from Stand: 6 Gait Training Gait (FIM): 6 Distance: 500', 150' Gait Assistive Device: FWW slow, no LOB or unsteadiness Exercises NuStep Minutes: 10 NuStep Workload: 4 Treatments bed mobility and transfers, ambulation, functional strengthening Assessment Current Status: Fair Progress improving endurance and balance PT Short Term Goals Short Term Goals Time Frame: Nov 16, 2016 Gait (FIM): 4 Gait Distance Comment: 150' Gait Level of Assist: 4 Gait Assistive Device: FWW PT Residential Goals Residential Goals PT Residential Goals Time Frame: Nov 30, 2016 Transfers (B,C,W/C) (FIM): 6 Sit to Lying (QC): 6 Lying-Sitting on Side/Bed(QC): 6 Sit to Stand (QC): 6 Rollin Roll Left to Right (QC): 6 Chair/Lml-lf-[place] Xfer(QC): 6 Car Transfer (QC): 4 Gait (FIM): 5 Distance: 200' Walk 10 feet (QC): 4 Walk 10ft-Uneven Surface(QC): 4 Walk 50ft with 2 Turns (QC): 4 Walk 150 ft (QC): 4 Gait Level of Assist: 5 Gait Assistive Device: FWW Stairs (FIM): 2 # of Steps: 4 1 Step (curb) (QC): 4 4 Steps (QC): 4 12 Steps (QC): 88 Stairs Level Of Assist: 4 Picking up an Object (QC): 88 PT Plan Problem List Problem List: Activity Tolerance, Functional Strength, Safety, Balance, Gait, Transfer Treatment/Plan Treatment Plan: Continue Plan of Care Treatment Plan: Bed Mobility, Education, Functional Activity Leopoldo, Functional Strength, Group Therapy, Gait, Safety, Therapeutic Exercise, Transfers Treatment Duration: Nov 30, 2016 Visits Per Week: 10-11 Minutes/Day (M-F): 60-90 Minutes/Day (Sat/Swain): 15-30 Safety Risks/Education Patient Education: Gait Training, Transfer Techniques, Safety Issues Teaching Recipient: Patient Teaching Methods: Demonstration, Discussion Response to Teaching: Reinforcement Needed Time/GCodes Time In: 1255 Time Out: 1325 Total Billed Treatment Time: 30 Total Billed Treatment 1 visit EX 10 min GT 20 min WAYNE BURGESS PT Nov 15, 2016 13:28
--- NOTE | 2016-11-15 14:16 | Occupational Ther Daily Note ---
OT Current Status-Daily Note Subjective Pt in restroom upon therapist's arrival, agrees to treatment. Pt reports fatigue after session. Mental Status/Objective Functional [place] Measure 0=Not Assessed/NA 4=Minimal Assistance 1=Total Assistance 5=Supervision or Setup 2=Maximal Assistance 6=Modified [place] 3=Moderate Assistance 7=Complete [place] ADL-Treatment Pt able to complete toileting hygiene and clothing management with SBA. Sit to stand from toilet with modified independence using grab bar. Pt washed hands at sink with modified independence. Functional [place] Measure 0=Not Assessed/NA 4=Minimal Assistance 1=Total Assistance 5=Supervision or Setup 2=Maximal Assistance 6=Modified [place] 3=Moderate Assistance 7=Complete IndependenceIRFPAI Quality Coding Scale 6 Independent with activity with or without an assistive device 5 Patient requires set up or clean up by helper. Patient completes activity by themselves 4 Supervision or touching assist (CGA). [place] provide cues , steadying assist 3 The helper provides less than half the effort to complete the activity 2 The helper provides more than half the effort to complete the activity 1 Dependent. The helper does all the effort to complete an activity 7 Patient refused to complete or attempt activity 9 The patient did not perform the activity before the current illness or injury 88 Not attempted due to Medical conditions or safety concerns Toileting (FIM): 5 Other Treatment Gait to therapy gym with FWW, no LOB noted. Pt completed peg activity with bilateral UE with 1# weights in place to increase strength needed for ADLs and transfers. Pt able to complete task within normal amount of time. Arc activity with bilateral UE with 1# weights in place to increase overall strength and activity tolerance for functional task completion. Pt fatigues with activity and requires one rest break. Pt returned to room, sitting EOB with granddaughter present after session. OT Short Term Goals Short Term Goals Time Frame: Nov 16, 2016 Bathing(FIM): 5 (met) Upper Body Dressing(FIM): 5 (met ) Lower Body Dressing(FIM): 5 (met) Toileting(FIM): 5 (met) Shower Transfer(FIM): 4 (CGA) Additional Short Term Goals: 1-Demonstrate ADL Tasks, 2-Verbalize Understanding , 3-ImproveStrength/Leopoldo 1=Demonstrate adherence to instructed precautions during ADL tasks. 2=Patient will verbalize/demonstrate understanding of assistive devices/ modifications for ADL. 3=Patient will improve strength/tolerance for activity to enable patient to perform ADL's. OT Alf Goals Sales Expert Home Theater Goals Time Frame: Nov 30, 2016 Eating (FIM): 6 Eating (QC): 6 Groomin Oral Hygiene (QC): 6 Bathing(FIM): 5 Shower/Bathe Self (QC): 5 Upper Body Dressing(FIM): 6 Upper Body Dressing (QC): 6 Lower Body Dressing(FIM): 6 Lower Body Dressing (QC): 6 On/Off Footwear (QC): 6 Toileting(FIM): 6 Toileting Hygiene (QC): 6 Toilet/Commode Transfer(FIM): 6 Toilet/Commode Transfer (QC): 6 Shower Transfer(FIM): 5 Additional Goals: 1-Demonstrate ADL Tasks, 2-Verbalize Understanding, 3- ImproveStrength/Leopoldo 1=Demonstrate adherence to instructed precautions during ADL tasks. 2=Patient will verbalize/demonstrate understanding of assistive devices/ modifications for ADL. 3=Patient will improve strength/tolerance for activity to enable patient to perform ADL's. OT Education/Plan Problem List/Assessment Pt to benefit from skilled OT intervention for ADL training, transfers, strengthening, and home safety education to maximize level of function and allow safe return home with family support. Discharge Recommendations Plan/Recommendations: Continue POC Treatment Plan/Plan of Care Patient would benefit from OT for education, treatment and training to promote independence in ADL's, mobility, safety and/or upper extremity function for ADL' s. Plan of Care: ADL Retraining, Functional Mobility, Group Exercise/Act as Ind, UE Funct Exercise/Act Treatment Duration: Nov 30, 2016 Visits Per Week: 10-11 Minutes/Day (M-F): 60-90 Minutes/Day (Sat/Swain): PRN Agreement: Yes Rehab Potential: Fair Time/GCodes Start Time: 13:30 Stop Time: 14:00 Total Time Billed (hr/min): 30 Billed Treatment Time 1 visit, ADL(10minutes), EX(20minutes) PRESTON MONTANO OT Nov 15, 2016 14:16
[2016-11-15 18:00] VITALS: BP 156/62
[2016-11-15] MEDS: ATORVASTATIN 80 MG (LIPITOR) TABLET PO SCH (20:34)
[2016-11-15] MEDS: BETAMETHASONE/CLOTRIM CREAM (LOTRISONE) 45 GM TP SCH (20:35)
[2016-11-16 05:28] VITALS: BP 118/52
[2016-11-16] MEDS: inSUlin (REGULAR) HUMAN 1 UNIT/0.01 ML (CHARGE PER UNIT) SC SCH ×4 (05:44→17:48)
[2016-11-16] MEDS: MULTIVIT W/MINERALS TAB (THERAGRAN M) PO SCH (06:19)
[2016-11-16] MEDS: metFORMIN 850 MG (GLUCOPHAGE) TAB PO SCH (06:19)
[2016-11-16] MEDS: PANTOPRAZOLE 20 MG TABLET (PROTONIX) PO SCH (06:19)
[2016-11-16] MEDS: lisINopril 20 MG (ZESTRIL) TAB PO SCH (08:19)
[2016-11-16] MEDS: CARVEDILOL 12.5 MG (COREG) TABLET PO SCH ×2 (08:19→22:29)
[2016-11-16] MEDS: TICAGRELOR 90 MG TABLET (BRILINTA) PO SCH ×2 (08:19→22:29)
[2016-11-16] MEDS: FAMOTIDINE 20 MG (PEPCID) TABLET PO SCH (08:19)
[2016-11-16] MEDS: amLODIPine 5 MG (NORVASC) TAB PO SCH (08:19)
[2016-11-16] MEDS: CALCIUM CARBONATE 500 MG (TUMS) TAB.CHEW PO SCH (08:19)
[2016-11-16] MEDS: ISOSORBIDE MONONITRATE 30 MG (IMDUR) TAB PO SCH ×2 (08:19→22:30)
[2016-11-16] MEDS: ASPIRIN E.C. 81 MG (ECOTRIN) TAB PO SCH (08:20)
[2016-11-16] MEDS: OMEGA 3 (FISH OIL) 1000 MG CAP PO SCH (08:20)
[2016-11-16] MEDS: MICONAZOLE 2% POWDER (DESENEX AF) 90 GM TOP SCH ×2 (08:22→22:31)
[2016-11-16] MEDS: ENOXAPARIN 40 MG/0.4 ML (LOVENOX) SYR SC SCH ×2 (08:22→09:00)
[2016-11-16] MEDS: BETAMETHASONE/CLOTRIM CREAM (LOTRISONE) 45 GM TP SCH ×2 (08:22→22:32)
--- NOTE | 2016-11-16 09:01 | Physical Therapy Daily Note ---
PT Daily Note-Current Subjective Patient in bed pre tx, agrees to PT, no complaints of pain. Appearance Patient sitting EOB post tx, has nurse call,phone, tray, all needs met. Patient will be independent in her room from now on, nursing notified. Mental Status Patient Orientation: Normal For Age Transfers Functional [place] Measure 0=Not Assessed/NA 4=Minimal Assistance 1=Total Assistance 5=Supervision or Setup 2=Maximal Assistance 6=Modified [place] 3=Moderate Assistance 7=Complete IndependenceIRFPAI Quality Coding Scale 6 Independent with activity with or without an assistive device 5 Patient requires set up or clean up by helper. Patient completes activity by themselves 4 Supervision or touching assist (CGA). [place] provide cues , steadying assist 3 The helper provides less than half the effort to complete the activity 2 The helper provides more than half the effort to complete the activity 1 Dependent. The helper does all the effort to complete an activity 7 Patient refused to complete or attempt activity 9 The patient did not perform the activity before the current illness or injury 88 Not attempted due to Medical conditions or safety concerns Transfers (B, C, W/C) (FIM): 6 Scootin Rollin Roll Left to Right (QC): 6 Supine to/from Sit: 6 Sit to/from Stand: 6 Sit to Lying (QC): 6 Sit to Stand (QC): 6 patient needs to be reminded to not pull up from the walker to stand Gait Training Gait (FIM): 6 Distance: 350',200' Walk 10 feet (QC): 6 Walk 50 ft with 2 Turns(QC): 6 Walk 150 ft (QC): 6 Walking 10ft/uneven surface-QC: 5 Gait Assistive Device: FWW patient needs SBA when walking on an uneven surface Wheelchair Training Does the Pt Use a Wheelchair?: No Stair Training Stair Training: Handrails/: 2 handrails Stairs (FIM): 2 #of Steps: 8 1 Step (curb) (QC): 5 4 Steps (QC): 5 Stairs: Pattern: Step to Level of Assist: 5 Patient uses 2 handrails to go up the stairs and 1 to go down she descends sideways, 8 steps is about as much as she can do for now due to fatigue Balance Picking up an Object (QC): 4 Exercises LAQ for 5 min alternating NuStep Minutes: 15 NuStep Workload: 4 Treatments stair training, bed mobility and transfers, ambulation, functional strengthening Assessment Current Status: Fair Progress improved mobility and slowly improving endurance PT Short Term Goals Short Term Goals Time Frame: Nov 16, 2016 Gait (FIM): 4 Gait Distance Comment: 150' Gait Level of Assist: 4 Gait Assistive Device: FWW PT Career Guidance Technician Goals Correction Goals PT Correction Goals Time Frame: Nov 30, 2016 Transfers (B,C,W/C) (FIM): 6 (met) Sit to Lying (QC): 6 (met) Lying-Sitting on Side/Bed(QC): 6 (met) Sit to Stand (QC): 6 (met) Rollin (met) Roll Left to Right (QC): 6 (met) Chair/Sqs-dk-Uyibb Xfer(QC): 6 (met) Car Transfer (QC): 4 Gait (FIM): 5 (met) Distance: 200' Walk 10 feet (QC): 4 (met) Walk 10ft-Uneven Surface(QC): 4 (met) Walk 50ft with 2 Turns (QC): 4 (met) Walk 150 ft (QC): 4 (met) Gait Level of Assist: 5 (met) Gait Assistive Device: FWW Stairs (FIM): 2 (met) # of Steps: 4 (met) 1 Step (curb) (QC): 4 (met) 4 Steps (QC): 4 (met) 12 Steps (QC): 88 Stairs Level Of Assist: 4 (met) Picking up an Object (QC): 88 PT Plan Problem List Problem List: Activity Tolerance, Functional Strength, Safety, Balance, Gait, Transfer Treatment/Plan Treatment Plan: Continue Plan of Care Treatment Plan: Bed Mobility, Education, Functional Activity Leopoldo, Functional Strength, Group Therapy, Gait, Safety, Therapeutic Exercise, Transfers Treatment Duration: Nov 30, 2016 Visits Per Week: 10-11 Minutes/Day (M-F): 60-90 Minutes/Day (Sat/Swain): 15-30 Safety Risks/Education Patient Education: Gait Training, Transfer Techniques, Steps, Safety Issues Teaching Recipient: Patient Teaching Methods: Demonstration, Discussion Response to Teaching: Reinforcement Needed Time/GCodes Time In: 800 Time Out: 900 Total Billed Treatment Time: 60 Total Billed Treatment 1 visit GT 30 min EX 30 min WAYNE BURGESS PT Nov 16, 2016 09:01
--- NOTE | 2016-11-16 09:46 | PM & R (SOAP) Progress Note ---
Subjective Subjective/Events-last exam Patient was seen in her room this AM Progressing wel with therapies Patient Modified Independent for transfers.Blood pressure well controlled with current medications. Objective Exam Last Set of Vital Signs Vital Signs Date Time Temp Pulse Resp B/P Pulse Ox O2 Delivery O2 Flow Rate FiO2 11/16/16 05:28 96.5 61 18 118/52 97 Room Air Capillary Refill : I&O Intake and Output 11/16/16 00:00 Intake Total 1365 ml Balance 1365 ml Intake Oral 1365 ml # Voids 8 # Bowel Movements 1 General: Alert, Oriented X3, Cooperative HEENT: Atraumatic, PERRLA Neck: Supple, No JVD, No Thyromegaly Lungs: Clear to Auscultation Heart: Regular Rate, Normal S1, Normal S2, No Murmurs Abdomen: Normal Bowel Sounds, Soft, No Tenderness, No Hepatosplenomegaly, No Masses Extremities: No Clubbing, No Cyanosis, No Edema, Normal Pulses, No Tenderness/ Swelling Skin: No Rashes, No Breakdown, No Significant Lesion, Other (Fungal appearing groin rash left) Neuro: Normal Gait, Normal Speech, Strength at 5/5 X4 Ext, Normal Tone, Sensation Intact Psych/Mental Status: Mental Status NL, Mood NL Results Lab Laboratory Tests 11/13/16 12:02: Glucometer 130H 11/13/16 18:05: Glucometer 157H 11/14/16 00:03: Glucometer 113H 11/14/16 05:33: Glucometer 115H 11/14/16 11:26: Glucometer 136H 11/14/16 16:17: Glucometer 142H 11/15/16 00:15: Glucometer 114H 11/15/16 05:13: Glucometer 134H 11/15/16 12:25: Glucometer 131H 11/15/16 17:55: Glucometer 114H 11/15/16 23:44: Glucometer 125H 11/16/16 04:44: Glucometer 121H Assessment/Plan Assessment -General debil s/p NSTEMI CAD s/p Cabg remote PVD HLP on statin HTN controlled DM controlled Groin rash-under treatment Plan Continue PT/OT F/U with Cardiology and Hospitalist as per their schedule Team Conference 11/14/16-See report for full functional update and POC and ELOS Treat rash see orders Discharge changed to early next week RADHA CERDA MD Nov 16, 2016 09:46
--- NOTE | 2016-11-16 11:21 | Occupational Ther Daily Note ---
OT Current Status-Daily Note Subjective Pt in bed, agrees to treatment. Mental Status/Objective Functional [place] Measure 0=Not Assessed/NA 4=Minimal Assistance 1=Total Assistance 5=Supervision or Setup 2=Maximal Assistance 6=Modified [place] 3=Moderate Assistance 7=Complete [place] ADL-Treatment Pt supine to sit with modified independence. Pt requests shower today. Sit to stand with modified independence. Pt retrieved clothing from closet without LOB , using FWW. Gait to restroom with FWW. Pt transferred to walk in shower with SBA. Doffed clothing with modified independence. Pt completed seated bathing using hand held shower. Pt requires instruction for how to use shower and requires assist to remove hand held shower, but is able to bathe all areas without assistance. Don pullover dress with modified independence. Pt donned underwear and socks with modified independence. Pt stood at sink for grooming. Brushed teeth and combed hair with modified independence. Pt returned dirty clothes to closet with modified independence. Functional [place] Measure 0=Not Assessed/NA 4=Minimal Assistance 1=Total Assistance 5=Supervision or Setup 2=Maximal Assistance 6=Modified [place] 3=Moderate Assistance 7=Complete IndependenceIRFPAI Quality Coding Scale 6 Independent with activity with or without an assistive device 5 Patient requires set up or clean up by helper. Patient completes activity by themselves 4 Supervision or touching assist (CGA). [place] provide cues , steadying assist 3 The helper provides less than half the effort to complete the activity 2 The helper provides more than half the effort to complete the activity 1 Dependent. The helper does all the effort to complete an activity 7 Patient refused to complete or attempt activity 9 The patient did not perform the activity before the current illness or injury 88 Not attempted due to Medical conditions or safety concerns Grooming (FIM): 6 Oral Hygiene (QC): 6 Bathing (FIM): 5 Shower/Bathe Self (QC): 5 Upper Body (FIM): 6 Upper Body Dressing (QC): 6 Lower Body Dressing (FIM): 6 Lower Body Dressing (QC): 6 On/Off Footwear (QC): 6 Shower Transfer(FIM): 5 Other Treatment Gait to therapy gym with FWW, no LOB noted. Arm bike x8 minutes to increase overall strength and activity tolerance needed for functional tasks. Pt performed task with slow pace and no resistance. No rest breaks needed during activity. Graded clothespin activity with bilateral hands to increase fisher trot line strength. Pt completed task with increased time using gross grasp. Pt completed grooved pegboard activity with bilateral hands to promote increased coordination /manipulation skills. Pt completed task with increased time. Pt performed fine motor activity with nuts and bolts with 1# weights in place to increase strength and coordination. Pt returned to room, sitting EOB with needs met after session. OT Short Term Goals Short Term Goals Time Frame: Nov 16, 2016 Bathing(FIM): 5 (met) Upper Body Dressing(FIM): 5 (met ) Lower Body Dressing(FIM): 5 (met) Toileting(FIM): 5 (met) Shower Transfer(FIM): 4 (CGA) Additional Short Term Goals: 1-Demonstrate ADL Tasks, 2-Verbalize Understanding , 3-ImproveStrength/Leopoldo 1=Demonstrate adherence to instructed precautions during ADL tasks. 2=Patient will verbalize/demonstrate understanding of assistive devices/ modifications for ADL. 3=Patient will improve strength/tolerance for activity to enable patient to perform ADL's. OT Usp Goals Rotoprinter Goals Time Frame: Nov 30, 2016 Eating (FIM): 6 Eating (QC): 6 Groomin (met 11/16/16) Oral Hygiene (QC): 6 (6-MET) Bathing(FIM): 5 (met 11/16/16) Shower/Bathe Self (QC): 5 Upper Body Dressing(FIM): 6 (met 11/16/16) Upper Body Dressing (QC): 6 Lower Body Dressing(FIM): 6 (met 11/16/16) Lower Body Dressing (QC): 6 On/Off Footwear (QC): 6 (met 11/16/16) Toileting(FIM): 6 Toileting Hygiene (QC): 6 Toilet/Commode Transfer(FIM): 6 Toilet/Commode Transfer (QC): 6 Shower Transfer(FIM): 5 (met 11/16/16) Additional Goals: 1-Demonstrate ADL Tasks, 2-Verbalize Understanding, 3- ImproveStrength/Leopoldo 1=Demonstrate adherence to instructed precautions during ADL tasks. 2=Patient will verbalize/demonstrate understanding of assistive devices/ modifications for ADL. 3=Patient will improve strength/tolerance for activity to enable patient to perform ADL's. OT Education/Plan Problem List/Assessment Pt to benefit from skilled OT intervention for ADL training, transfers, strengthening, and home safety education to maximize level of function and allow safe return home with family support. Discharge Recommendations Plan/Recommendations: Continue POC Treatment Plan/Plan of Care Patient would benefit from OT for education, treatment and training to promote independence in ADL's, mobility, safety and/or upper extremity function for ADL' s. Plan of Care: ADL Retraining, Functional Mobility, Group Exercise/Act as Ind, UE Funct Exercise/Act Treatment Duration: Nov 30, 2016 Visits Per Week: 10-11 Minutes/Day (M-F): 60-90 Minutes/Day (Sat/Swain): PRN Agreement: Yes Rehab Potential: Fair Time/GCodes Start Time: 09:40 Stop Time: 11:10 Total Time Billed (hr/min): 90 Billed Treatment Time 1 visit, ADLx3(50minutes), EXx3(40minutes) PRESTON MONTANO OT Nov 16, 2016 11:21
--- NOTE | 2016-11-16 13:20 | Physical Therapy Daily Note ---
PT Daily Note-Current Subjective Patient is with family and up ad radha in room. Agrees to PT. Pain Numeric Pain Scale: 0-No Pain Location: No Pain Reported Mental Status Patient Orientation: Normal For Age Transfers Functional [place] Measure 0=Not Assessed/NA 4=Minimal Assistance 1=Total Assistance 5=Supervision or Setup 2=Maximal Assistance 6=Modified [place] 3=Moderate Assistance 7=Complete IndependenceIRFPAI Quality Coding Scale 6 Independent with activity with or without an assistive device 5 Patient requires set up or clean up by helper. Patient completes activity by themselves 4 Supervision or touching assist (CGA). [place] provide cues , steadying assist 3 The helper provides less than half the effort to complete the activity 2 The helper provides more than half the effort to complete the activity 1 Dependent. The helper does all the effort to complete an activity 7 Patient refused to complete or attempt activity 9 The patient did not perform the activity before the current illness or injury 88 Not attempted due to Medical conditions or safety concerns Transfers (B, C, W/C) (FIM): 6 Scootin Sit to/from Stand: 6 Sit to Stand (QC): 5 Car Transfer (QC): 5 Patient is safe with modified independent transfers and functional mobility Gait Training Does the Patient Walk?: Yes Gait (FIM): 6 Distance (FIM): 3=150 ft Distance: 250' x 1; 150' x 1 Gait Level of Assist: 6 Gait Assistive Device: FWW safe and functional Exercises NuStep Minutes: 15 NuStep Workload: 4 Treatments NuStep to improve functional strength to promote safe return to home at [facility]. Assessment Patient tolerated treatment well and continues to be up ad radha in room. Patient has improved with POC. PT Short Term Goals Short Term Goals Time Frame: Nov 16, 2016 Gait (FIM): 4 Gait Distance Comment: 150' Gait Level of Assist: 4 Gait Assistive Device: FWW PT Nursing Home Goals In House Cra Goals PT In House Cra Goals Time Frame: Nov 30, 2016 Transfers (B,C,W/C) (FIM): 6 (met) Sit to Lying (QC): 6 (met) Lying-Sitting on Side/Bed(QC): 6 (met) Sit to Stand (QC): 6 (met) Rollin (met) Roll Left to Right (QC): 6 (met) Chair/Bwf-eb-Fwpiu Xfer(QC): 6 (met) Car Transfer (QC): 4 Gait (FIM): 5 (met) Distance: 200' Walk 10 feet (QC): 4 (met) Walk 10ft-Uneven Surface(QC): 4 (met) Walk 50ft with 2 Turns (QC): 4 (met) Walk 150 ft (QC): 4 (met) Gait Level of Assist: 5 (met) Gait Assistive Device: FWW Stairs (FIM): 2 (met) # of Steps: 4 (met) 1 Step (curb) (QC): 4 (met) 4 Steps (QC): 4 (met) 12 Steps (QC): 88 Stairs Level Of Assist: 4 (met) Picking up an Object (QC): 88 PT Plan Treatment/Plan Treatment Plan: Continue Plan of Care Treatment Plan: Bed Mobility, Education, Functional Activity Leopoldo, Functional Strength, Group Therapy, Gait, Safety, Therapeutic Exercise, Transfers Treatment Duration: Nov 30, 2016 Visits Per Week: 10-11 Minutes/Day (M-F): 60-90 Minutes/Day (Sat/Swain): 15-30 Time/GCodes Time In: 1245 Time Out: 1315 Total Billed Treatment Time: 30 Total Billed Treatment 1 visit EX 15 min GT 15 min SHEILA MADRID PT Nov 16, 2016 13:20
[2016-11-16] MEDS: SCOPOLAMINE PATCH REMOVAL TP SCH (14:15)
[2016-11-16] MEDS: SCOPOLAMINE 1.5 MG (TRANSDERM-SCOP) PATCH TOP SCH (14:15)
--- NOTE | 2016-11-16 16:21 | Cardiology Progress Note ---
Subjective Subjective/Events-last exam Patient is in bed, feeling better, no new complaint Review of Systems General: No Chills, No Night Sweats, No Fatigue, No Malaise, No Appetite, No Other HEENT: No Head Aches, No Visual Changes, No Eye Pain, No Ear Pain, No Dysphasia , No Sinus Congestion, No Post Nasal Drip, No Sore Throat, No Other Pulmonary: No Dyspnea, No Cough, No Pleuritic Chest Pain, No Other Cardiovascular: No: Chest Pain, Edema, Lt Headedness, Orthopnea, Other, Palpitations, Paroxysmal Noc. Dyspnea Objective-Cardiology Exam Last Set of Vital Signs Vital Signs 11/16/16 11/16/16 05:28 09:50 Temp 96.5 Pulse 61 Resp 18 B/P 118/52 Pulse Ox 97 O2 Delivery Room Air Capillary Refill : I&O Intake and Output 11/16/16 00:00 Intake Total 1365 ml Balance 1365 ml Intake Oral 1365 ml # Voids 8 # Bowel Movements 1 General: Alert, Oriented X3, Cooperative HEENT: Atraumatic, PERRLA Neck: Supple, No JVD, No Thyromegaly Lungs: Clear to Auscultation Heart: Regular Rate, Normal S1, Normal S2, No Murmurs Abdomen: Normal Bowel Sounds, Soft, No Tenderness, No Hepatosplenomegaly, No Masses Extremities: No Clubbing, No Cyanosis, No Edema, Normal Pulses, No Tenderness/ Swelling Skin: No Rashes, No Breakdown, No Significant Lesion, Other (Fungal appearing groin rash left) Neuro: Normal Gait, Normal Speech, Strength at 5/5 X4 Ext, Normal Tone, Sensation Intact Psych/Mental Status: Mental Status NL, Mood NL Results Lab Laboratory Tests Test 11/15/16 17:55 11/15/16 23:44 11/16/16 04:44 11/16/16 12:41 Range/Units Glucometer 114 H 125 H 121 H 135 H 70-110 MG/DL A/P-Cardiology Admission Diagnosis NSTEMI CAD CARLO PVD Assessment/Plan Non-ST elevation myocardial infarction, cardiac catheterization showed extensive coronary artery disease, medical therapy is recommended, Continue on Brilinta and ASA. Continue to monitor. Coronary artery disease, history of CABG 3 in 1996 with vein graft to diagonal , vein graft to OM 2 and FOX to LAD. Most recent cardiac catheterization August 2012 and was referred to Dr. Garnica for possible redo CABG, however it was deemed patient is not a good surgical candidate and vessels are very small and recommended continuation of medical management, repeat cardiac catheterization which showed worsening of her coronary artery disease, small vessel, inoperable. Medical therapy is recommended Peripheral vascular disease-monitored by heart and vascular care, continue to monitor at this time. No changes are recommended. Carotid artery stenosis with history of bilateral CEA, followed by heart and vascular care, continue to monitor. Renal artery stenosis-history of stent to right renal artery in June 2012, followed by heart and vascular care. Hypertension,patient was hypotensive yesterday with dizziness. I will d/c HCTZ at this time and continue to monitor BP/HR Hyperlipidemia, continue to monitor lipids Diabetes mellitus, followed by primary care physician. Ultra-rapid Plavix metabolizer Obesity, BMI is 36. Patient was educated on weight loss. Clinical Quality Measures DVT/VTE Risk/Contraindication: Risk Factor Score Per Nursin RFS Level Per Nursing on Admit: 4+=Very High CITLALLI BEASLEY MD Nov 16, 2016 16:20
[2016-11-16 17:54] VITALS: BP 113/58
[2016-11-16] MEDS: ATORVASTATIN 80 MG (LIPITOR) TABLET PO SCH (22:30)
[2016-11-17] MEDS: inSUlin (REGULAR) HUMAN 1 UNIT/0.01 ML (CHARGE PER UNIT) SC SCH ×4 (06:00→18:00)
[2016-11-17] MEDS: MULTIVIT W/MINERALS TAB (THERAGRAN M) PO SCH (06:07)
[2016-11-17] MEDS: PANTOPRAZOLE 20 MG TABLET (PROTONIX) PO SCH (06:07)
[2016-11-17] MEDS: metFORMIN 850 MG (GLUCOPHAGE) TAB PO SCH (06:07)
[2016-11-17 06:44] VITALS: BP 113/72
[2016-11-17] MEDS: lisINopril 20 MG (ZESTRIL) TAB PO SCH (08:53)
[2016-11-17] MEDS: TICAGRELOR 90 MG TABLET (BRILINTA) PO SCH ×2 (08:53→21:58)
[2016-11-17] MEDS: FAMOTIDINE 20 MG (PEPCID) TABLET PO SCH (08:53)
[2016-11-17] MEDS: ASPIRIN E.C. 81 MG (ECOTRIN) TAB PO SCH (08:53)
[2016-11-17] MEDS: OMEGA 3 (FISH OIL) 1000 MG CAP PO SCH (08:54)
[2016-11-17] MEDS: amLODIPine 5 MG (NORVASC) TAB PO SCH (08:54)
[2016-11-17] MEDS: ISOSORBIDE MONONITRATE 30 MG (IMDUR) TAB PO SCH ×2 (08:54→21:58)
[2016-11-17] MEDS: CALCIUM CARBONATE 500 MG (TUMS) TAB.CHEW PO SCH (08:54)
[2016-11-17] MEDS: ENOXAPARIN 40 MG/0.4 ML (LOVENOX) SYR SC SCH (08:54)
[2016-11-17] MEDS: CARVEDILOL 12.5 MG (COREG) TABLET PO SCH ×2 (08:54→21:58)
[2016-11-17] MEDS: BETAMETHASONE/CLOTRIM CREAM (LOTRISONE) 45 GM TP SCH ×2 (08:55→21:59)
[2016-11-17] MEDS: MICONAZOLE 2% POWDER (DESENEX AF) 90 GM TOP SCH ×2 (08:55→21:59)
--- NOTE | 2016-11-17 10:07 | Physical Therapy Daily Note ---
PT Daily Note-Current Subjective Pt. in bed and readily agrees to therapy. She has no c/o pain. Mental Status Patient Orientation: Normal For Age Transfers Functional [employer] Measure 0=Not Assessed/NA 4=Minimal Assistance 1=Total Assistance 5=Supervision or Setup 2=Maximal Assistance 6=Modified [employer] 3=Moderate Assistance 7=Complete IndependenceIRFPAI Quality Coding Scale 6 Independent with activity with or without an assistive device 5 Patient requires set up or clean up by helper. Patient completes activity by themselves 4 Supervision or touching assist (CGA). [place] provide cues , steadying assist 3 The helper provides less than half the effort to complete the activity 2 The helper provides more than half the effort to complete the activity 1 Dependent. The helper does all the effort to complete an activity 7 Patient refused to complete or attempt activity 9 The patient did not perform the activity before the current illness or injury 88 Not attempted due to Medical conditions or safety concerns Transfers (B, C, W/C) (FIM): 6 Supine to/from Sit: 7 Sit to Stand (QC): 6 toilet transfer: mod (I) Gait Training Does the Patient Walk?: Yes Gait (FIM): 6 Distance (FIM): 3=150 ft Distance: 500 ft Gait Level of Assist: 6 Gait Assistive Device: FWW pt. is steady and good gait speed Exercises NuStep Minutes: 10 NuStep Workload: 4 Assessment Current Status: Good Progress Pt. did well with ambulation and exercise on Nustep. She is progressing well towards goals. PT Short Term Goals Short Term Goals Time Frame: Nov 16, 2016 Gait (FIM): 4 Gait Distance Comment: 150' Gait Level of Assist: 4 Gait Assistive Device: FWW PT Long-Term Goals Industrial Waste Treatment Technician Goals PT Long-Term Goals Time Frame: Nov 30, 2016 Transfers (B,C,W/C) (FIM): 6 (met) Sit to Lying (QC): 6 (met) Lying-Sitting on Side/Bed(QC): 6 (met) Sit to Stand (QC): 6 (met) Rollin (met) Roll Left to Right (QC): 6 (met) Chair/Sck-tm-Mjmfl Xfer(QC): 6 (met) Car Transfer (QC): 4 Gait (FIM): 5 (met) Distance: 200' Walk 10 feet (QC): 4 (met) Walk 10ft-Uneven Surface(QC): 4 (met) Walk 50ft with 2 Turns (QC): 4 (met) Walk 150 ft (QC): 4 (met) Gait Level of Assist: 5 (met) Gait Assistive Device: FWW Stairs (FIM): 2 (met) # of Steps: 4 (met) 1 Step (curb) (QC): 4 (met) 4 Steps (QC): 4 (met) 12 Steps (QC): 88 Stairs Level Of Assist: 4 (met) Picking up an Object (QC): 88 PT Plan Treatment/Plan Treatment Plan: Continue Plan of Care Treatment Plan: Bed Mobility, Education, Functional Activity Leopoldo, Functional Strength, Group Therapy, Gait, Safety, Therapeutic Exercise, Transfers Treatment Duration: Nov 30, 2016 Visits Per Week: 10-11 Minutes/Day (M-F): 60-90 Minutes/Day (Sat/Swain): 15-30 Time/GCodes Time In: 805 Time Out: 830 Total Billed Treatment Time: 25 Total Billed Treatment 1, GT 15', Ex 10' JELENA CONTRERAS PT Nov 17, 2016 10:07
[2016-11-17 18:08] VITALS: BP 136/60
[2016-11-17] MEDS: ATORVASTATIN 80 MG (LIPITOR) TABLET PO SCH (21:58)
[2016-11-18] MEDS: inSUlin (REGULAR) HUMAN 1 UNIT/0.01 ML (CHARGE PER UNIT) SC SCH ×4 (06:00→18:00)
[2016-11-18 06:52] VITALS: BP 128/57
[2016-11-18] MEDS: MULTIVIT W/MINERALS TAB (THERAGRAN M) PO SCH (06:54)
[2016-11-18] MEDS: metFORMIN 850 MG (GLUCOPHAGE) TAB PO SCH (06:54)
[2016-11-18] MEDS: PANTOPRAZOLE 20 MG TABLET (PROTONIX) PO SCH (06:54)
[2016-11-18] MEDS: OMEGA 3 (FISH OIL) 1000 MG CAP PO SCH (08:04)
[2016-11-18] MEDS: ISOSORBIDE MONONITRATE 30 MG (IMDUR) TAB PO SCH ×2 (08:04→20:48)
[2016-11-18] MEDS: CARVEDILOL 12.5 MG (COREG) TABLET PO SCH ×2 (08:04→20:49)
[2016-11-18] MEDS: ENOXAPARIN 40 MG/0.4 ML (LOVENOX) SYR SC SCH (08:04)
[2016-11-18] MEDS: CALCIUM CARBONATE 500 MG (TUMS) TAB.CHEW PO SCH (08:04)
[2016-11-18] MEDS: lisINopril 20 MG (ZESTRIL) TAB PO SCH (08:04)
[2016-11-18] MEDS: FAMOTIDINE 20 MG (PEPCID) TABLET PO SCH (08:04)
[2016-11-18] MEDS: amLODIPine 5 MG (NORVASC) TAB PO SCH (08:04)
[2016-11-18] MEDS: TICAGRELOR 90 MG TABLET (BRILINTA) PO SCH ×2 (08:05→20:48)
[2016-11-18] MEDS: ASPIRIN E.C. 81 MG (ECOTRIN) TAB PO SCH (08:05)
[2016-11-18] MEDS: MICONAZOLE 2% POWDER (DESENEX AF) 90 GM TOP SCH ×2 (08:05→20:51)
[2016-11-18] MEDS: BETAMETHASONE/CLOTRIM CREAM (LOTRISONE) 45 GM TP SCH ×2 (08:05→20:51)
[2016-11-18 18:01] VITALS: BP 133/67
[2016-11-18] MEDS: ATORVASTATIN 80 MG (LIPITOR) TABLET PO SCH (20:49)
[2016-11-19] MEDS: inSUlin (REGULAR) HUMAN 1 UNIT/0.01 ML (CHARGE PER UNIT) SC SCH ×4 (00:11→17:35)
[2016-11-19 06:00] VITALS: BP 105/60
[2016-11-19] MEDS: PANTOPRAZOLE 20 MG TABLET (PROTONIX) PO SCH (06:22)
[2016-11-19] MEDS: metFORMIN 850 MG (GLUCOPHAGE) TAB PO SCH (06:22)
[2016-11-19] MEDS: MULTIVIT W/MINERALS TAB (THERAGRAN M) PO SCH (06:22)
--- NOTE | 2016-11-19 08:15 | Cardiology Progress Note ---
Subjective Subjective/Events-last exam Patient sitting up in bed. No new complaints. Denies any CP or dyspnea. Possibly being discharged home tomorrow. Review of Systems General: No Night Sweats, No Fatigue, No Malaise HEENT: No Head Aches, No Visual Changes, No Dysphasia, No Sore Throat Pulmonary: No Dyspnea, No Cough Cardiovascular: No: Chest Pain, Palpitations Gastrointestinal: No: Abdominal Pain, Nausea, Vomiting Genitourinary: No Dysuria, No Frequency Musculoskeletal: No: back pain, neck pain Neurological: No: Change in speech, Confusion, Numbness, Weakness Objective-Cardiology Exam Last Set of Vital Signs Vital Signs 11/19/16 06:00 Temp 96.5 Pulse 67 Resp 16 B/P 105/60 Pulse Ox 97 O2 Delivery Room Air Capillary Refill : I&O Intake and Output 11/19/16 00:00 Intake Total 1280 ml Balance 1280 ml Intake Oral 1280 ml # Voids 7 General: Alert, Oriented X3, Cooperative HEENT: Atraumatic, PERRLA Neck: Supple, No JVD, No Thyromegaly Lungs: Clear to Auscultation Heart: Regular Rate, Normal S1, Normal S2, No Murmurs Abdomen: Normal Bowel Sounds, Soft, No Tenderness, No Hepatosplenomegaly, No Masses Extremities: No Clubbing, No Cyanosis, No Edema, Normal Pulses, No Tenderness/ Swelling Skin: No Rashes, No Breakdown, No Significant Lesion Neuro: Normal Gait, Normal Speech, Strength at 5/5 X4 Ext, Normal Tone, Sensation Intact Psych/Mental Status: Mental Status NL, Mood NL A/P-Cardiology Admission Diagnosis NSTEMI CAD CARLO PVD Assessment/Plan Non-ST elevation myocardial infarction, cardiac catheterization showed extensive coronary artery disease, medical therapy is recommended, Continue on Brilinta and ASA. Continue to monitor. Coronary artery disease, history of CABG 3 in 1996 with vein graft to diagonal , vein graft to OM 2 and FOX to LAD. Most recent cardiac catheterization August 2012 and was referred to Dr. Garnica for possible redo CABG, however it was deemed patient is not a good surgical candidate and vessels are very small and recommended continuation of medical management, repeat cardiac catheterization which showed worsening of her coronary artery disease, small vessel, inoperable. Medical therapy is recommended Peripheral vascular disease-monitored by heart and vascular care, continue to monitor at this time. No changes are recommended. Carotid artery stenosis with history of bilateral CEA, followed by heart and vascular care, continue to monitor. Renal artery stenosis-history of stent to right renal artery in June 2012, followed by heart and vascular care. Hypertension,controlled. Continue to monitor BP/HR. Hyperlipidemia, continue to monitor lipids Diabetes mellitus, followed by primary care physician. Ultra-rapid Plavix metabolizer Obesity, BMI is 36. Patient was educated on weight loss. Clinical Quality Measures DVT/VTE Risk/Contraindication: Risk Factor Score Per Nursin RFS Level Per Nursing on Admit: 4+=Very High DEJON GRADY Nov 19, 2016 08:15
[2016-11-19] MEDS: OMEGA 3 (FISH OIL) 1000 MG CAP PO SCH (08:20)
[2016-11-19] MEDS: FAMOTIDINE 20 MG (PEPCID) TABLET PO SCH (08:20)
[2016-11-19] MEDS: ISOSORBIDE MONONITRATE 30 MG (IMDUR) TAB PO SCH ×2 (08:20→20:37)
[2016-11-19] MEDS: amLODIPine 5 MG (NORVASC) TAB PO SCH (08:20)
[2016-11-19] MEDS: TICAGRELOR 90 MG TABLET (BRILINTA) PO SCH ×2 (08:20→20:37)
[2016-11-19] MEDS: lisINopril 20 MG (ZESTRIL) TAB PO SCH (08:20)
[2016-11-19] MEDS: CARVEDILOL 12.5 MG (COREG) TABLET PO SCH ×2 (08:20→20:37)
[2016-11-19] MEDS: CALCIUM CARBONATE 500 MG (TUMS) TAB.CHEW PO SCH (08:20)
[2016-11-19] MEDS: ASPIRIN E.C. 81 MG (ECOTRIN) TAB PO SCH (08:20)
[2016-11-19] MEDS: ENOXAPARIN 40 MG/0.4 ML (LOVENOX) SYR SC SCH (08:21)
[2016-11-19 08:23] VITALS: BP 149/71
--- NOTE | 2016-11-19 09:05 | Physical Therapy Daily Note ---
PT Daily Note-Current Subjective Pt is sitting at EOB upon arrival. Nursing gives morning meds before pt leaves for PT. Pt agrees to PT. Pain Location: No Pain Reported Mental Status Patient Orientation: Person, Place, Time, Situation Transfers Functional [place] Measure 0=Not Assessed/NA 4=Minimal Assistance 1=Total Assistance 5=Supervision or Setup 2=Maximal Assistance 6=Modified [place] 3=Moderate Assistance 7=Complete IndependenceIRFPAI Quality Coding Scale 6 Independent with activity with or without an assistive device 5 Patient requires set up or clean up by helper. Patient completes activity by themselves 4 Supervision or touching assist (CGA). [place] provide cues , steadying assist 3 The helper provides less than half the effort to complete the activity 2 The helper provides more than half the effort to complete the activity 1 Dependent. The helper does all the effort to complete an activity 7 Patient refused to complete or attempt activity 9 The patient did not perform the activity before the current illness or injury 88 Not attempted due to Medical conditions or safety concerns Transfers (B, C, W/C) (FIM): 6 Scootin Rollin Roll Left to Right (QC): 6 Supine to/from Sit: 6 Sit to/from Stand: 6 Sit to Lying (QC): 6 Sit to Stand (QC): 6 Chair/Zfy-kp-Bbzcb Xfer(QC): 6 Bed to/from Chair: 6 Car Transfer (QC): 6 Weight Bearing Weight Bearing Restriction: Full Weight Bearing Location Restriction: LE Bilateral Gait Training Does the Patient Walk?: Yes Gait (FIM): 6 Distance (FIM): 3=150 ft Distance: 200' Walk 10 feet (QC): 6 Walk 50 ft with 2 Turns(QC): 6 Walk 150 ft (QC): 6 Walking 10ft/uneven surface-QC: 6 Gait Level of Assist: 6 Gait Persons Needed: 1 Gait Assistive Device: FWW Pt walks with normalized gait and self corrects if FWW get out in front of her too much. Pt has slow slow but steady wagner, no LOB. Wheelchair Training Does the Pt Use a Wheelchair?: No Stair Training Stair Training: Handrails/: 2 handrails Stairs (FIM): 6 #of Steps: 12 1 Step (curb) (QC): 6 4 Steps (QC): 6 12 Steps (QC): 6 Stairs: Pattern: Step to Level of Assist: 6 Pt ambulates stairs well, w/o safety concerns. Pt will use 1 hand rail descending stairs and turns toward handrail. Balance Picking up an Object (QC): 6 Exercises NuStep Minutes: 15 NuStep Workload: 4 Treatments Pt transfers at Mod I with all transfers including bed mobility, seated and standing. Pt ambulates at Mod I with no safety concerns using FWW. PT did inquire about testing gait with Quad Cane so will look at this afternoon. PT ambulates 12 stairs, uneven surface for at least 10', 50' with 2 turns and picking up object off floor safely. PT uses NuStep for activity tolerance and strengthening. Pt returns to room to rest in chair at end of tx with all needs met. Assessment Current Status: Good Progress Pt is safe with transfers and ambulation and has increased her activity tolerance, ambulation distance and able to ambulate stairs. PT Short Term Goals Short Term Goals Time Frame: Nov 16, 2016 Gait (FIM): 4 Gait Distance Comment: 150' Gait Level of Assist: 4 Gait Assistive Device: FWW PT Shelter Goals Dip Painter Goals PT Dip Painter Goals Time Frame: Nov 30, 2016 Transfers (B,C,W/C) (FIM): 6 (met) Sit to Lying (QC): 6 (met) Lying-Sitting on Side/Bed(QC): 6 (met) Sit to Stand (QC): 6 (met) Rollin (met) Roll Left to Right (QC): 6 (met) Chair/Bzf-db-Rqndo Xfer(QC): 6 (met) Car Transfer (QC): 4 Gait (FIM): 5 (met) Distance: 200' Walk 10 feet (QC): 4 (met) Walk 10ft-Uneven Surface(QC): 4 (met) Walk 50ft with 2 Turns (QC): 4 (met) Walk 150 ft (QC): 4 (met) Gait Level of Assist: 5 (met) Gait Assistive Device: FWW Stairs (FIM): 2 (met) # of Steps: 4 (met) 1 Step (curb) (QC): 4 (met) 4 Steps (QC): 4 (met) 12 Steps (QC): 88 Stairs Level Of Assist: 4 (met) Picking up an Object (QC): 88 PT Plan Problem List Problem List: Activity Tolerance, Functional Strength Treatment/Plan Treatment Plan: Continue Plan of Care Treatment Plan: Bed Mobility, Education, Functional Activity Leopoldo, Functional Strength, Group Therapy, Gait, Safety, Therapeutic Exercise, Transfers Treatment Duration: Nov 30, 2016 Visits Per Week: 10-11 Minutes/Day (M-F): 60-90 Minutes/Day (Sat/Swain): 15-30 Safety Risks/Education Patient Education: Gait Training, Transfer Techniques, Correct Positioning, Safety Issues Teaching Recipient: Patient Teaching Methods: Discussion Response to Teaching: Verbalize Understanding Time/GCodes Time In: 815 Time Out: 915 Total Billed Treatment Time: 60 Total Billed Treatment visit, GT (15m), EX X2 (30m) & FA (15m) AHMET RAMIRES PTA Nov 19, 2016 09:05
--- NOTE | 2016-11-19 10:49 | Occupational Ther Daily Note ---
OT Current Status-Daily Note Subjective Pt sitting in chair, agrees to treatment. Pt has no c/o pain. Pt states she will be staying with granddaughter at d/c since her bathroom at home is not finished yet. Mental Status/Objective Functional [place] Measure 0=Not Assessed/NA 4=Minimal Assistance 1=Total Assistance 5=Supervision or Setup 2=Maximal Assistance 6=Modified [place] 3=Moderate Assistance 7=Complete [place] ADL-Treatment Pt retrieved clothing from closet using FWW for balance. Gait to restroom without assistance. Transfer to walk in shower with modified independence using grab bars. Doff clothing without assistance. Pt able to wash/dry all areas with modified independence. Don pullover dress with modified independence. Pt donned underwear and socks with modified independence. Pt returned dirty clothes to closet with modified independence. Pt demonstrated ability to complete toilet transfer with modified independence using grab bars. Pt states she has been getting up to restroom without assistance and has no difficulty with hygiene or clothing management. Stood at sink to brush teeth and complete oral care with modified independence. Pt requires occasional rest breaks during functional tasks secondary to fatigue. Functional [place] Measure 0=Not Assessed/NA 4=Minimal Assistance 1=Total Assistance 5=Supervision or Setup 2=Maximal Assistance 6=Modified [place] 3=Moderate Assistance 7=Complete IndependenceIRFPAI Quality Coding Scale 6 Independent with activity with or without an assistive device 5 Patient requires set up or clean up by helper. Patient completes activity by themselves 4 Supervision or touching assist (CGA). [place] provide cues , steadying assist 3 The helper provides less than half the effort to complete the activity 2 The helper provides more than half the effort to complete the activity 1 Dependent. The helper does all the effort to complete an activity 7 Patient refused to complete or attempt activity 9 The patient did not perform the activity before the current illness or injury 88 Not attempted due to Medical conditions or safety concerns Eating (FIM): 6 (Pt reports cutting food, managing containers/packages, and feeding self without assistanece. Wears dentures) Eating (QC): 6 Grooming (FIM): 6 Oral Hygiene (QC): 6 Bathing (FIM): 6 Shower/Bathe Self (QC): 6 Upper Body (FIM): 6 Upper Body Dressing (QC): 6 Lower Body Dressing (FIM): 6 Lower Body Dressing (QC): 6 On/Off Footwear (QC): 6 Toileting (FIM): 6 Toileting Hygiene (QC): 6 Toilet/Commode Transfer (FIM): 6 Toilet Transfer (QC): 6 Shower Transfer(FIM): 6 Other Treatment Gait to therapy gym with FWW, no LOB noted. Pt completed two fine motor activities with 1# weights in place to increase strength and fine motor coordination. Pt completed task with increased time. Arm bike [id number] to increase overall strength and activity tolerance needed for functional tasks. Pt completed task without resistance, no rest breaks needed. Pt returned to room , sitting EOB with needs met after session. Pt plans to d/c tomorrow with family. Has no questions or concerns at this time. OT Short Term Goals Short Term Goals Time Frame: Nov 16, 2016 Bathing(FIM): 5 (met) Upper Body Dressing(FIM): 5 (met ) Lower Body Dressing(FIM): 5 (met) Toileting(FIM): 5 (met) Shower Transfer(FIM): 4 (CGA) Additional Short Term Goals: 1-Demonstrate ADL Tasks, 2-Verbalize Understanding , 3-ImproveStrength/Leopoldo 1=Demonstrate adherence to instructed precautions during ADL tasks. 2=Patient will verbalize/demonstrate understanding of assistive devices/ modifications for ADL. 3=Patient will improve strength/tolerance for activity to enable patient to perform ADL's. OT Gasoline Tractor Operator Goals Skilled Nursing Goals Time Frame: Nov 30, 2016 Eating (FIM): 6 (met 11/19/16) Eating (QC): 6 (6-MET) Groomin (met 11/16/16) Oral Hygiene (QC): 6 (6-MET) Bathing(FIM): 5 (met 11/16/16) Shower/Bathe Self (QC): 5 (6-exceeded) Upper Body Dressing(FIM): 6 (met 11/16/16) Upper Body Dressing (QC): 6 (6-MET) Lower Body Dressing(FIM): 6 (met 11/16/16) Lower Body Dressing (QC): 6 (6-MET) On/Off Footwear (QC): 6 (met 11/16/16) Toileting(FIM): 6 (met 11/19/16) Toileting Hygiene (QC): 6 (6-MET) Toilet/Commode Transfer(FIM): 6 (met 11/19/16) Toilet/Commode Transfer (QC): 6 (6-MET) Shower Transfer(FIM): 5 (met 11/16/16) Additional Goals: 1-Demonstrate ADL Tasks, 2-Verbalize Understanding, 3- ImproveStrength/Leopoldo 1=Demonstrate adherence to instructed precautions during ADL tasks. 2=Patient will verbalize/demonstrate understanding of assistive devices/ modifications for ADL. 3=Patient will improve strength/tolerance for activity to enable patient to perform ADL's. OT Education/Plan Problem List/Assessment Pt to benefit from skilled OT intervention for ADL training, transfers, strengthening, and home safety education to maximize level of function and allow safe return home with family support. Discharge Recommendations Plan/Recommendations: Continue POC Treatment Plan/Plan of Care Patient would benefit from OT for education, treatment and training to promote independence in ADL's, mobility, safety and/or upper extremity function for ADL' s. Plan of Care: ADL Retraining, Functional Mobility, Group Exercise/Act as Ind, UE Funct Exercise/Act Treatment Duration: Nov 30, 2016 Visits Per Week: 10-11 Minutes/Day (M-F): 60-90 Minutes/Day (Sat/Swain): PRN Agreement: Yes Rehab Potential: Fair Time/GCodes Start Time: 09:15 Stop Time: 10:45 Total Time Billed (hr/min): 90 Billed Treatment Time 1 visit, ADLx3(50minutes), EXx3(40minutes) PRESTON MONTANO OT Nov 19, 2016 10:49
[2016-11-19] MEDS: BETAMETHASONE/CLOTRIM CREAM (LOTRISONE) 45 GM TP SCH ×2 (10:53→20:39)
[2016-11-19] MEDS: MICONAZOLE 2% POWDER (DESENEX AF) 90 GM TOP SCH ×2 (10:55→20:38)
[2016-11-19] MEDS: SCOPOLAMINE PATCH REMOVAL TP SCH (12:59)
[2016-11-19] MEDS: SCOPOLAMINE 1.5 MG (TRANSDERM-SCOP) PATCH TOP SCH (13:00)
--- NOTE | 2016-11-19 16:03 | Physical Therapy Daily Note ---
PT Daily Note-Current Subjective Pt is sitting at EOB upon arrival. Pt agrees to PT but wants to go outside since its so nice. Pain Location: No Pain Reported Mental Status Patient Orientation: Person, Place, Time, Situation Transfers Functional [place] Measure 0=Not Assessed/NA 4=Minimal Assistance 1=Total Assistance 5=Supervision or Setup 2=Maximal Assistance 6=Modified [place] 3=Moderate Assistance 7=Complete IndependenceIRFPAI Quality Coding Scale 6 Independent with activity with or without an assistive device 5 Patient requires set up or clean up by helper. Patient completes activity by themselves 4 Supervision or touching assist (CGA). [place] provide cues , steadying assist 3 The helper provides less than half the effort to complete the activity 2 The helper provides more than half the effort to complete the activity 1 Dependent. The helper does all the effort to complete an activity 7 Patient refused to complete or attempt activity 9 The patient did not perform the activity before the current illness or injury 88 Not attempted due to Medical conditions or safety concerns Transfers (B, C, W/C) (FIM): 6 Scootin Sit to/from Stand: 6 Sit to Stand (QC): 6 Chair/Aqf-yr-Ycwtw Xfer(QC): 6 Bed to/from Chair: 6 Weight Bearing Weight Bearing Restriction: Full Weight Bearing Location Restriction: LE Bilateral Gait Training Does the Patient Walk?: Yes Gait (FIM): 6 Distance (FIM): 3=150 ft Distance: 150' Walk 10 feet (QC): 6 Walk 50 ft with 2 Turns(QC): 6 Walk 150 ft (QC): 6 Gait Level of Assist: 6 Gait Persons Needed: 1 Wheelchair Training Pt used [facility] for longer distance of getting to main floor of hospital. This is longer than pt had ever walked in Therapy previous and pt felt uncomfortable able trying that far. Treatments Pt manuered [facility] for approx. 150' before BUE fatigued and needed PT to assist in propelling. Pt walked in [facility] over uneven surfaces and made several turns while using FWW at Mod I. Pt took rest break before returning to [facility] to return to room to rest at EOB when tx. was complete with all needs met. Assessment Current Status: Good Progress Pt worked on problem solving as well as UE & LE EX to maneuver [facility] throughout hospital. Pt is excited to discharge tomorrow and is safe with ambulation and transfers. PT Short Term Goals Short Term Goals Time Frame: Nov 16, 2016 Gait (FIM): 4 Gait Distance Comment: 150' Gait Level of Assist: 4 Gait Assistive Device: FWW PT Snf Goals Order Editor Goals PT Snf Goals Time Frame: Nov 30, 2016 Transfers (B,C,W/C) (FIM): 6 (met) Sit to Lying (QC): 6 (met) Lying-Sitting on Side/Bed(QC): 6 (met) Sit to Stand (QC): 6 (met) Rollin Roll Left to Right (QC): 6 (met) Chair/Kkk-ov-Ybxgx Xfer(QC): 6 (met) Car Transfer (QC): 4 Gait (FIM): 5 (met) Distance: 200' Walk 10 feet (QC): 4 (met) Walk 10ft-Uneven Surface(QC): 4 (met) Walk 50ft with 2 Turns (QC): 4 (met) Walk 150 ft (QC): 4 (met) Gait Level of Assist: 5 (met) Gait Assistive Device: FWW Stairs (FIM): 2 (met) # of Steps: 4 (met) 1 Step (curb) (QC): 4 (met) 4 Steps (QC): 4 (met) 12 Steps (QC): 88 Stairs Level Of Assist: 4 (met) Picking up an Object (QC): 88 PT Plan Problem List Problem List: Activity Tolerance, Functional Strength Treatment/Plan Treatment Plan: Continue Plan of Care Treatment Plan: Bed Mobility, Education, Functional Activity Leopoldo, Functional Strength, Group Therapy, Gait, Safety, Therapeutic Exercise, Transfers Treatment Duration: Nov 30, 2016 Visits Per Week: 10-11 Minutes/Day (M-F): 60-90 Minutes/Day (Sat/Swain): 15-30 Safety Risks/Education Patient Education: Gait Training, Transfer Techniques, Correct Positioning, Safety Issues Teaching Recipient: Patient Teaching Methods: Discussion Response to Teaching: Verbalize Understanding Time/GCodes Time In: 1300 Time Out: 1340 Total Billed Treatment Time: 40 Total Billed Treatment visit, GT (15m) & FA X2 (25m) AHMET RAMIRES PTA Nov 19, 2016 16:02
[2016-11-19 17:25] VITALS: BP 113/45
--- NOTE | 2016-11-19 19:21 | PM & R (SOAP) Progress Note ---
Subjective Subjective/Events-last exam Patient was seen in her room this evening Discussed case with RN Patient Modified Independent in room Discharge remains set for tomorrow. to home with family Objective Exam Last Set of Vital Signs Vital Signs Date Time Temp Pulse Resp B/P Pulse Ox O2 Delivery O2 Flow Rate FiO2 11/19/16 17:25 97.7 68 20 113/45 97 Room Air Capillary Refill : I&O Intake and Output 11/19/16 00:00 Intake Total 1280 ml Balance 1280 ml Intake Oral 1280 ml # Voids 7 General: Alert, Oriented X3, Cooperative HEENT: Atraumatic, PERRLA Neck: Supple, No JVD, No Thyromegaly Lungs: Clear to Auscultation Heart: Regular Rate, Normal S1, Normal S2, No Murmurs Abdomen: Normal Bowel Sounds, Soft, No Tenderness, No Hepatosplenomegaly, No Masses Extremities: No Clubbing, No Cyanosis, No Edema, Normal Pulses, No Tenderness/ Swelling Skin: No Rashes, No Breakdown, No Significant Lesion Neuro: Normal Gait, Normal Speech, Strength at 5/5 X4 Ext, Normal Tone, Sensation Intact Psych/Mental Status: Mental Status NL, Mood NL Results Lab Laboratory Tests 11/17/16 00:25: Glucometer 121H 11/17/16 06:06: Glucometer 137H 11/17/16 12:00: Glucometer 159H 11/17/16 17:54: Glucometer 105 11/18/16 00:03: Glucometer 118H 11/18/16 06:47: Glucometer 133H 11/18/16 11:55: Glucometer 131H 11/18/16 17:59: Glucometer 125H 11/19/16 00:03: Glucometer 144H 11/19/16 06:19: Glucometer 129H 11/19/16 11:33: Glucometer 115H 11/19/16 17:35: Glucometer 112H Assessment/Plan Assessment -General debil s/p NSTEMI CAD s/p Cabg remote PVD HLP on statin HTN controlled DM controlled Groin rash-under treatment Plan Continue PT/OT F/U with Cardiology and Hospitalist as per their schedule Treat rash see orders Discharge remains set for tomorrow F/U with DR Villatoro and RADHA Rivera MD Nov 19, 2016 19:21
[2016-11-19] MEDS: ATORVASTATIN 80 MG (LIPITOR) TABLET PO SCH (20:37)
[2016-11-20 05:14] VITALS: BP 104/55
[2016-11-20] MEDS: inSUlin (REGULAR) HUMAN 1 UNIT/0.01 ML (CHARGE PER UNIT) SC SCH ×3 (05:15→11:49)
[2016-11-20] MEDS: MULTIVIT W/MINERALS TAB (THERAGRAN M) PO SCH (06:08)
[2016-11-20] MEDS: PANTOPRAZOLE 20 MG TABLET (PROTONIX) PO SCH (06:08)
[2016-11-20] MEDS: metFORMIN 850 MG (GLUCOPHAGE) TAB PO SCH (06:08)
[2016-11-20] MEDS: ASPIRIN E.C. 81 MG (ECOTRIN) TAB PO SCH (07:15)
[2016-11-20] MEDS: FAMOTIDINE 20 MG (PEPCID) TABLET PO SCH (07:15)
[2016-11-20] MEDS: TICAGRELOR 90 MG TABLET (BRILINTA) PO SCH (07:16)
[2016-11-20] MEDS: ISOSORBIDE MONONITRATE 30 MG (IMDUR) TAB PO SCH (07:16)
[2016-11-20] MEDS: CARVEDILOL 12.5 MG (COREG) TABLET PO SCH (07:16)
[2016-11-20] MEDS: OMEGA 3 (FISH OIL) 1000 MG CAP PO SCH (07:16)
[2016-11-20] MEDS: amLODIPine 5 MG (NORVASC) TAB PO SCH (07:16)
[2016-11-20] MEDS: CALCIUM CARBONATE 500 MG (TUMS) TAB.CHEW PO SCH (07:16)
[2016-11-20] MEDS: lisINopril 20 MG (ZESTRIL) TAB PO SCH (07:16)
[2016-11-20] MEDS: BETAMETHASONE/CLOTRIM CREAM (LOTRISONE) 45 GM TP SCH (07:17)
[2016-11-20] MEDS: ENOXAPARIN 40 MG/0.4 ML (LOVENOX) SYR SC SCH (07:17)
[2016-11-20] MEDS: MICONAZOLE 2% POWDER (DESENEX AF) 90 GM TOP SCH (07:17)
--- NOTE | 2016-11-20 09:19 | PM & R (SOAP) Progress Note ---
Subjective Subjective/Events-last exam Patient was seen in her room this AM Has progressed well Current labs and meds reviewed Objective Exam Last Set of Vital Signs Vital Signs Date Time Temp Pulse Resp B/P Pulse Ox O2 Delivery O2 Flow Rate FiO2 11/20/16 07:16 Room Air 11/20/16 05:14 97.8 71 16 104/55 96 Capillary Refill : I&O Intake and Output 11/20/16 00:00 Intake Total 880 ml Balance 880 ml Intake Oral 880 ml # Voids 6 General: Alert, Oriented X3, Cooperative HEENT: Atraumatic, PERRLA Neck: Supple, No JVD, No Thyromegaly Lungs: Clear to Auscultation Heart: Regular Rate, Normal S1, Normal S2, No Murmurs Abdomen: Normal Bowel Sounds, Soft, No Tenderness, No Hepatosplenomegaly, No Masses Extremities: No Clubbing, No Cyanosis, No Edema, Normal Pulses, No Tenderness/ Swelling Skin: No Rashes, No Breakdown, No Significant Lesion Neuro: Normal Gait, Normal Speech, Strength at 5/5 X4 Ext, Normal Tone, Sensation Intact Psych/Mental Status: Mental Status NL, Mood NL Results Lab Laboratory Tests 11/17/16 12:00: Glucometer 159H 11/17/16 17:54: Glucometer 105 11/18/16 00:03: Glucometer 118H 11/18/16 06:47: Glucometer 133H 11/18/16 11:55: Glucometer 131H 11/18/16 17:59: Glucometer 125H 11/19/16 00:03: Glucometer 144H 11/19/16 06:19: Glucometer 129H 11/19/16 11:33: Glucometer 115H 11/19/16 17:35: Glucometer 112H 11/20/16 00:48: Glucometer 141H 11/20/16 05:03: Glucometer 132H Assessment/Plan Assessment -General debil s/p NSTEMI CAD s/p Cabg remote PVD HLP on statin HTN controlled DM controlled Groin rash-under treatment Plan Discharge today to home with family F/U with DR Villatoro and DR Mandi Marsh PCP See orders. RADHA CERDA MD Nov 20, 2016 09:18
[2016-11-20] MEDS ORDERED: CLOT15CR6 TP (09:23)
[2016-11-20] MEDS ORDERED: TRAM50TA2 PO (09:23)
--- NOTE | 2016-11-20 10:19 | Cardiology Progress Note ---
Subjective Subjective/Events-last exam Patient sitting up in bed. Being discharged home today. Denies any CP or dyspnea. Objective-Cardiology Exam Last Set of Vital Signs Vital Signs 11/20/16 11/20/16 05:14 07:16 Temp 97.8 Pulse 71 Resp 16 B/P 104/55 Pulse Ox 96 O2 Delivery Room Air Capillary Refill : I&O Intake and Output 11/20/16 00:00 Intake Total 880 ml Balance 880 ml Intake Oral 880 ml # Voids 6 General: Alert, Oriented X3, Cooperative HEENT: Atraumatic, PERRLA Neck: Supple, No JVD, No Thyromegaly Lungs: Clear to Auscultation Heart: Regular Rate, Normal S1, Normal S2, No Murmurs Abdomen: Normal Bowel Sounds, Soft, No Tenderness, No Hepatosplenomegaly, No Masses Extremities: No Clubbing, No Cyanosis, No Edema, Normal Pulses, No Tenderness/ Swelling Skin: No Rashes, No Breakdown, No Significant Lesion Neuro: Normal Gait, Normal Speech, Strength at 5/5 X4 Ext, Normal Tone, Sensation Intact Psych/Mental Status: Mental Status NL, Mood NL A/P-Cardiology Admission Diagnosis NSTEMI CAD CARLO PVD Assessment/Plan Non-ST elevation myocardial infarction, cardiac catheterization showed extensive coronary artery disease, medical therapy is recommended, Continue on Brilinta and ASA. Continue to monitor. Coronary artery disease, history of CABG 3 in 1996 with vein graft to diagonal , vein graft to OM 2 and FOX to LAD. Most recent cardiac catheterization August 2012 and was referred to Dr. Garnica for possible redo CABG, however it was deemed patient is not a good surgical candidate and vessels are very small and recommended continuation of medical management, repeat cardiac catheterization which showed worsening of her coronary artery disease, small vessel, inoperable. Medical therapy is recommended Peripheral vascular disease-monitored by heart and vascular care, continue to monitor at this time. No changes are recommended. Carotid artery stenosis with history of bilateral CEA, followed by heart and vascular care, continue to monitor. Renal artery stenosis-history of stent to right renal artery in June 2012, followed by heart and vascular care. Hypertension,controlled. Continue to monitor BP/HR. Hyperlipidemia, continue to monitor lipids Diabetes mellitus, followed by primary care physician. Ultra-rapid Plavix metabolizer Obesity, BMI is 36. Patient was educated on weight loss. Clinical Quality Measures DVT/VTE Risk/Contraindication: Risk Factor Score Per Nursin RFS Level Per Nursing on Admit: 4+=Very High DEJON GRADY Nov 20, 2016 10:19
[2016-11-20 12:30] VITALS: BP 104/55
--- NOTE | 2016-11-20 12:52 | Therapy Team Discharge Summary ---
Therapy Discharge Summary Discharge Recommendations Date of Discharge Therapy D/C Recommendations: Home w/ Family Support Physical Therapy This patient has been seen for skilled therapy intervention after acute hospitalization with a cardiac catheritization with a decline in functional mobility and strength requiring intensive therapy services to return to [facility]. Upon admission, she required min assist with transfers, amb 120 ft with min-CGA and was only able to go up/down 1 step. she has met all goals and is not mod indep with gait, transfers, functional mobility, stairs and is ready for discharge home. Excellent progress noted. Recommend follow up [facility] PT to ensure safety and functional mobility in her home. DC PT. PT Securities Adviser Goals Securities Adviser Goals PT Intermediate Goals Time Frame: Nov 30, 2016 Transfers (B,C,W/C) (FIM): 6 (met) Roll Left to Right (QC): 6 (met) Sit to Lying (QC): 6 (met) Lying-Sitting on Side/Bed(QC): 6 (met) Sit to Stand (QC): 6 (met) Chair/Wmc-mc-Fllok Xfer(QC): 6 (met) Car Transfer (QC): 4 (pt is a 5 at sd per nursing report) Gait (FIM): 5 (met) Distance: 200' Walk 10 feet (QC): 4 (met) Walk 10ft-Uneven Surface(QC): 4 (met) Walk 50ft with 2 Turns (QC): 4 (met) Walk 150 ft (QC): 4 (met) Gait Level of Assist: 5 (met) Gait Assistive Device: FWW Stairs (FIM): 2 (met) # of Steps: 4 (met) 1 Step (curb) (QC): 4 (met) 4 Steps (QC): 4 (met) 12 Steps (QC): 88 (exceeded, scored a 6) Stairs Level Of Assist: 4 (met) Picking up an Object (QC): 88 (exceeded, scored a 6) OT Securities Adviser Goals Securities Adviser Goals Time Frame: Nov 30, 2016 Eating (FIM): 6 (met 11/19/16) Eating (QC): 6 (6-MET) Oral Hygiene (QC): 6 (6-MET) Grooming(FIM): 6 (met 11/16/16) Bathing(FIM): 5 (met 11/16/16) Shower/Bathe Self (QC): 5 (6-exceeded) Upper Body Dressing(FIM): 6 (met 11/16/16) Upper Body Dressing (QC): 6 (6-MET) Lower Body Dressing(FIM): 6 (met 11/16/16) Lower Body Dressing (QC): 6 (6-MET) On/Off Footwear (QC): 6 (met 11/16/16) Toileting(FIM): 6 (met 11/19/16) Toileting Hygiene (QC): 6 (6-MET) Toilet/Commode Transfer(FIM): 6 (met 11/19/16) Toilet/Commode Transfer (QC): 6 (6-MET) Shower Transfer(FIM): 5 (met 11/16/16) Additional Goals: 1-Demonstrate ADL Tasks, 2-Verbalize Understanding, 3- ImproveStrength/Leopoldo 1=Demonstrate adherence to instructed precautions during ADL tasks. 2=Patient will verbalize/demonstrate understanding of assistive devices/ modifications for ADL. 3=Patient will improve strength/tolerance for activity to enable patient to perform ADL's. MARY CRUZ PT Nov 20, 2016 12:52
--- NOTE | 2016-11-21 13:42 | Therapy Team Discharge Summary ---
Therapy Discharge Summary Discharge Recommendations Date of Discharge Nov 20, 2016 at 12:30 Therapy D/C Recommendations: Home w/ Family Support Occupational Therapy Pt admitted to ARU following acute hospitalization for CAD and cardiac cath. On admission pt required CGA for transfers and LE dressing and SBA for UE ADLs. Skilled OT intervention focused on ADL training, transfers, strengthening, and safety education. Pt made good progress and by d/c is completing ADLs and transfers with modified independence. Pt met OT LTG. Pt discharging with family support. D/C ARU OT at this time. PT Mcc Goals Water Rights Specialist Goals PT Mcc Goals Time Frame: Nov 30, 2016 Transfers (B,C,W/C) (FIM): 6 (met) Roll Left to Right (QC): 6 (met) Sit to Lying (QC): 6 (met) Lying-Sitting on Side/Bed(QC): 6 (met) Sit to Stand (QC): 6 (met) Chair/Vxl-mw-Nzweu Xfer(QC): 6 (met) Car Transfer (QC): 4 (pt is a 5 at dc per nursing report) Gait (FIM): 5 (met) Distance: 200' Walk 10 feet (QC): 4 (met) Walk 10ft-Uneven Surface(QC): 4 (met) Walk 50ft with 2 Turns (QC): 4 (met) Walk 150 ft (QC): 4 (met) Gait Level of Assist: 5 (met) Gait Assistive Device: FWW Stairs (FIM): 2 (met) # of Steps: 4 (met) 1 Step (curb) (QC): 4 (met) 4 Steps (QC): 4 (met) 12 Steps (QC): 88 (exceeded, scored a 6) Stairs Level Of Assist: 4 (met) Picking up an Object (QC): 88 (exceeded, scored a 6) OT Water Rights Specialist Goals Water Rights Specialist Goals Time Frame: Nov 30, 2016 Eating (FIM): 6 (met 11/19/16) Eating (QC): 6 (6-MET) Oral Hygiene (QC): 6 (6-MET) Grooming(FIM): 6 (met 11/16/16) Bathing(FIM): 5 (met 11/16/16) Shower/Bathe Self (QC): 5 (6-exceeded) Upper Body Dressing(FIM): 6 (met 11/16/16) Upper Body Dressing (QC): 6 (6-MET) Lower Body Dressing(FIM): 6 (met 11/16/16) Lower Body Dressing (QC): 6 (6-MET) On/Off Footwear (QC): 6 (met 11/16/16) Toileting(FIM): 6 (met 11/19/16) Toileting Hygiene (QC): 6 (6-MET) Toilet/Commode Transfer(FIM): 6 (met 11/19/16) Toilet/Commode Transfer (QC): 6 (6-MET) Shower Transfer(FIM): 5 (met 11/16/16) Additional Goals: 1-Demonstrate ADL Tasks, 2-Verbalize Understanding, 3- ImproveStrength/Leopoldo 1=Demonstrate adherence to instructed precautions during ADL tasks. 2=Patient will verbalize/demonstrate understanding of assistive devices/ modifications for ADL. 3=Patient will improve strength/tolerance for activity to enable patient to perform ADL's. PRESTON MONTANO OT Nov 21, 2016 13:42
--- NOTE | 2016-12-05 11:12 | DISCHARGE SUMMARY ---
DATE OF ADMISSION: 11/09/2016 DATE OF DISCHARGE: 11/20/2016 HISTORY OF PRESENT ILLNESS: The patient is a 76-year-old female with known coronary artery disease, who was admitted to [facility] for treatment of non-ST elevation CA. The patient had evaluation with cardiology. The patient had multivessel disease, which was felt not to be correctable with procedures. The patient was treated medically. The patient had a decline in her functional independence due to this and was referred to Inpatient Rehabilitation Unit. The patient states that her son lives with her, but is gone during the day at work. She had been modified independent with a single-point cane prior to this. PAST MEDICAL HISTORY: 1. Coronary artery disease. 2. COPD. 3. Diabetes mellitus. 4. GERD. 5. Hypertension. 6. CABG. MEDICAL COURSE: The patient was followed by Dr. Canales and Dr. Villatoro and Dr. Patel hospitalist service while on rehab unit. She had a fungal skin rash which was treated topically. Her blood pressure ran somewhat flow. Norvasc was decreased. Blood pressure stabilized. The patient was afebrile during her stay. Pulse was 71 on 11/20. Blood pressure 104/55, respirations 16, O2 sat 96% on room air. CBC on 11/12 showed WBC 7.4, hemoglobin and hematocrit 9.7/29, platelet count 198,000. Accu-Cheks from 11/19 was 11/20 varied between 112 and 141. Chemistry on 11/12 showed normal electrolytes, BUN was 29, creatinine 1.07. Blood glucose 186, calcium 8.9, AST elevated at 70, ALT at 92, total protein low at 5.5, albumin 3.3. She continued on scopolamine patch and this was discontinued upon discharge, she no longer needed it for dizziness. She was continent of bowel and bladder. She was noted to be an ultra rapid Plavix metabolizer by cardiology. Her blood glucose was 68 on 11/11 and medications were adjusted, also 58 and 68 on 11/11 and 53 on 11/11 and 45 on 11/10, 11/11; medications were adjusted. REHABILITATION COURSE: She was assessed by speech therapy upon admission to rehab unit and found to be functional and they signed off. OT notes upon admission, the patient required contact guard for transfers, and lower body dressing and standby assist for upper body ADLs. The patient made good progress and by discharge was completing ADLs and transfers with modified independence. PT notes upon admission, she requires min assist for transfers, ambulates 120 feet with min to contact guard and was able to go up and down one step. Upon discharge she has met all goals and is modified independent with gait transfers, functional mobilities and stairs. Recommended that she have home health care, PT for safety and functional mobility in her home DISCHARGE INSTRUCTIONS: The patient will have follow-up with Latonya Marsh PCP and Dr. Villatoro cardiology. Continue current diet and at home health care is ordered. Continue current Accu-Cheks. DISCHARGE MEDICATIONS: 1. Lotrisone cream topically b.i.d. to affected area. 2. Tramadol 50 mg p.o. q.8 h. as p.r.n. pain. 3. Amlodipine 10 mg p.o. daily. 4. ASA 81 mg p.o. daily. 5. Lipitor 80 mg p.o. at bedtime. 6. Calcium 1000 mg p.o. daily. 7. Coreg 25 mg p.o. b.i.d. 8. Centrum Silver 1 tablet p.o. daily. 9. Imdur 30 mg sustained release b.i.d. 10. B6, B12 capsules 1 p.o. daily. 11. Lisinopril 40 mg p.o. daily. 12. Metformin 850 mg p.o. daily. 13. Nitrostat 0.4 mg sublingual p.r.n. chest pain. 14. Fish oil 3000 mg p.o. daily. 15. Omeprazole 20 mg p.o. daily. 16. Zantac 150 mg p.o. b.i.d. 17. Brilinta 90 mg p.o. b.i.d. DISCHARGE DIAGNOSES: 1. Rehabilitation general debilitation secondary to non-ST elevation CA improved. 2. Coronary artery disease, stable on medications. 3. Peripheral vascular disease, stable. 4. Hypertension, controlled with medication. 5. Hyperlipidemia, on statin with elevated AST and ALT - will have follow-up with cardiology regarding follow-up labs. 6. Diabetes mellitus type 2, associated with hypoglycemia, stable, now improved. 7. Obesity. 8. BMI 36.5. 9. Status post CABG. 10. COPD. 11. GERD. 12. Yeast skin abdomen, treated. 13. Groin rash treated. CONDITION AT DISCHARGE: Improved and stable. PROGNOSIS: Rehab prognosis appears good for continued improvement at home, return to independent living with some assistance from her family as needed. Job ID: [id number] Dictated Date: 12/04/2016 10:16:46 Bus Operator Date: 12/05/2016 10:54:44/alba
== END 2016-11-20 12:30 | disposition home health service (06) | DRG 282 ==
PROVIDERS: ADMIT Physical Medicine & Rehabilitation; ATTEND Physical Medicine & Rehabilitation
DX: I21.4 Non-ST elevation (NSTEMI) myocardial infarction (principal); I25.10 Atherosclerotic heart disease of native coronary artery without angina pectoris; I73.9 Peripheral vascular disease, unspecified; I10 Essential (primary) hypertension; E78.5 Hyperlipidemia, unspecified; E11.649 Type 2 diabetes mellitus with hypoglycemia without coma; E66.9 Obesity, unspecified; J44.9 Chronic obstructive pulmonary disease, unspecified; B37.2 Candidiasis of skin and nail; R21 Rash and other nonspecific skin eruption; K21.9 Gastro-esophageal reflux disease without esophagitis; Z68.36 Body mass index [BMI] 36.0-36.9, adult; Z95.1 Presence of aortocoronary bypass graft
CPT/HCPCS: 36415; 80053; 82962; 85025

== ENCOUNTER → 2016-11-29 | Outpatient (CLI) | payer MEDICARE, OTHER ==
[~2016-11-29] MED LIST changes: +CLOT15CR6 TP
--- NOTE | 2016-11-29 12:41 | Diagnostic Imaging Report ---
EXAMINATION: Left lower extremity duplex venous ultrasound. TECHNIQUE: DVT protocol. Multiple sonographic images with color Doppler and waveform interrogation were performed of the left lower extremity veins with compression and augmentation maneuvers. INDICATION: Left leg edema. FINDINGS: The left lower extremity veins from the groin to below the knee veins were examined with normal color-flow, compressibility and waveform demonstrated. The great saphenous vein is patent. IMPRESSION: No evidence of DVT in the left lower extremity. Dictated by: Dictated on workstation # [id number]
== END ==
LOC: RAD 11:46
PROVIDERS: ATTEND Physician Assistant
DX: R60.0 Localized edema (principal); I25.10 Atherosclerotic heart disease of native coronary artery without angina pectoris; I10 Essential (primary) hypertension; E78.2 Mixed hyperlipidemia; E11.9 Type 2 diabetes mellitus without complications

== ENCOUNTER → 2018-09-24 | Outpatient (CLI) | payer MEDICARE, OTHER ==
[~2018-09-24] VITALS: Ht 152.4 cm; Wt 83.9 kg
[~2018-09-24] MED LIST changes: +CATHETER FLUSH 10 ML SYR IV PRN; +METF-398 PO; -METF850T2 PO; +REGADENOSON 0.4 MG/5 ML SYR (LEXISCAN) IV ONE
[2018-09-24 13:06] VITALS: BP 171/72
--- NOTE | 2018-09-24 15:58 | STRESS TEST ---
DATE OF SERVICE: 09/24/2018 LEXISCAN MYOVIEW STRESS TEST REPORT REFERRING PHYSICIAN: Latonya Marsh MD Baseline heart rate is 62. Baseline blood pressure 171/72. Baseline EKG sinus rhythm with left bundle branch block. In summary, the patient was injected with 10.16 mCi of technetium-99 Myoview and the resting images were obtained. Then, the patient received 0.4 mg of Lexiscan, followed by 31.5 mCi of technetium-99 Myoview. Throughout the test, there were no EKG changes. The resting and stress images were reviewed and compared in the short axis, horizontal long axis, and vertical long axis views. Review of the images showed breast attenuation affecting the quality of the images with reversible ischemia involving the mid to apical anterior wall and anterolateral wall. SSS is 7, SDS 7, TID value 0.99. On the gated images, the left ventricle appeared to be normal size with normal contractility. Calculated ejection fraction 62%. CONCLUSION: 1. The patient tolerated Lexiscan well. 2. Baseline left bundle branch block persisted throughout test. 3. Reversible ischemia involving the mid to apical anterior wall and anterolateral wall. 4. Normal left ventricular size with normal contractility. Calculated ejection fraction 62%. Job ID: [id number] DocumentID: [id number] Dictated Date: 09/24/2018 15:43:14 Sack Maker Date: 09/24/2018 15:57:29 Dictated By: CITLALLI BEASLEY MD
== END ==
LOC: CARD 11:46
PROVIDERS: ATTEND Thoracic Surgery (Cardiothoracic Vascular Surgery)
DX: I70.213 Atherosclerosis of native arteries of extremities with intermittent claudication, bilateral legs (principal)
CPT/HCPCS: 78452; 93017

== ENCOUNTER → 2020-05-18 | Outpatient (CLI) | payer MEDICARE, OTHER ==
[~2020-05-18] MED LIST changes: -CATHETER FLUSH 10 ML SYR IV PRN; +GLIM4TAB5 PO; -OMEP20CA12 PO; +OMEP20CA18 PO; -REGADENOSON 0.4 MG/5 ML SYR (LEXISCAN) IV ONE; -TRAM50TA2 PO; +TRM50T PO
== END ==
LOC: CARD 08:41
PROVIDERS: ATTEND Internal Medicine Cardiovascular Disease
DX: I34.0 Nonrheumatic mitral (valve) insufficiency (principal); I25.10 Atherosclerotic heart disease of native coronary artery without angina pectoris; I10 Essential (primary) hypertension; E78.2 Mixed hyperlipidemia; E11.9 Type 2 diabetes mellitus without complications; I73.9 Peripheral vascular disease, unspecified
CPT/HCPCS: 93306

== ENCOUNTER → 2021-02-24 | Outpatient (CLI) | payer MEDICARE, OTHER ==
[~2021-02-24] MED LIST changes: -ISOS30TA3 PO; +ISOS30TA82 PO
--- NOTE | 2021-02-24 15:45 | Diagnostic Imaging Report ---
INDICATION: Palpable lump left breast. Comparison is made with prior mammogram from 06/01/2013. Unilateral left 2-D and 3-D diagnostic mammography was performed with CAD. Left breast is heterogeneously dense, limiting sensitivity to mammography. There is an irregular mass in the central left breast corresponding to the area of palpable abnormality. There are numerous malignant appearing microcalcifications within the mass. In addition, there appears to be an enlarged lymph node in the left axilla. There are vascular calcifications present. There appears to be some generalized skin thickening of the breast. IMPRESSION: BI-RADS 0 Irregular mass at the area of palpable abnormality in the central left breast with associated suspicious microcalcifications. This is highly concerning for breast neoplasm. In addition, there is an enlarged lymph node left axilla which could be pathologic. Further evaluation of the left breast mass and left axilla is recommended with ultrasound and will be performed today. ACR BI-RADS Category 0: Incomplete. (Needs additional imaging evaluation). Result letter will be mailed to the patient. Note: At least 10% of breast cancer is not imaged by mammography. Dictated by: Dictated on workstation # [id number]
--- NOTE | 2021-02-24 15:59 | Diagnostic Imaging Report ---
INDICATION: Left breast mass. There is a irregular hypoechoic solid mass at the 12 o'clock location left breast 5 cm from the nipple corresponding to the mammographic and palpable abnormality. This measures 4.4 x 3.5 x 4.2 cm. In addition, there is enlarged lymph node in the left axilla measuring 3.2 x 1.5 x 2.4 cm, likely accounting for the enlarged node noted on mammogram. IMPRESSION: BI-RADS Category 4 Solid mass 12 o'clock location left breast accounting for the palpable and mammographic abnormality. This is highly concerning for breast neoplasm and ultrasound-guided biopsy is recommended. In addition, there is enlarged lymph node in the left axilla which could be metastatic. Ultrasound biopsy of the left axillary lymph node is recommended as well. ACR BI-RADS Category 4: Suspicious abnormality. Result letter will be mailed to the patient. Note: At least 10% of breast cancer is not imaged by mammography. Dictated by: Dictated on workstation # [id number]
== END ==
LOC: RAD 13:45
PROVIDERS: ATTEND Family Medicine
DX: N63.25 Unspecified lump in the left breast, overlapping quadrants (principal)
CPT/HCPCS: 76642; 77065; G0279

== ENCOUNTER → 2021-03-09 | Outpatient (CLI) | payer MEDICARE, OTHER ==
[~2021-03-09] MED LIST changes: +LIDOCAINE 1% INJ 20 ML 20 ML VIAL INJ ONE
--- NOTE | 2021-03-09 11:53 | Diagnostic Imaging Report ---
INDICATION: Left breast mass. Patient presents for ultrasound-guided biopsy. Patient is brought to the ultrasound room placed in the bed in the supine position. Ultrasound imaging of the left breast was performed to evaluate appropriate entry site. Left breast was then prepped and draped in usual sterile fashion. Small amount of 1% lidocaine was utilized for local anesthesia. Multiple core biopsies were made of the irregular hypoechoic solid mass at the 12:00 location left breast, 5 cm from the nipple, utilizing a 14-gauge achieve needle. A marker clip was then deployed. Needle was removed and hemostasis was obtained using manual compression. Patient tolerated procedure well. IMPRESSION: Successful ultrasound-guided core biopsy of the solid mass at the 12:00 location left breast, 5 cm from the nipple. Pathology results are currently pending. Dictated by: Dictated on workstation # [id number]
--- NOTE | 2021-03-09 11:54 | Diagnostic Imaging Report ---
INDICATION: Left breast mass and enlarged left axillary lymph node. PROCEDURE: The patient presents for a left axillary lymph node biopsy. The patient was brought to the sonographic suite, placed on the table in the supine position. Ultrasound imaging of the left axilla was performed to evaluate appropriate entry site. The skin of the left axilla was prepped and draped in the usual sterile fashion. A small amount of 1% lidocaine was utilized for local anesthesia. Multiple core biopsies were made of the enlarged lymph node in the left axilla utilizing a 14-gauge Achieve needle. A marker clip was then deployed. Hemostasis was obtained using manual compression. The patient tolerated the procedure well and left the department in stable condition. IMPRESSION: Successful ultrasound guided core biopsy of left axillary enlarged lymph node. Pathology results are currently pending. Dictated by: Dictated on workstation # [id number]
== END ==
LOC: RAD 10:00
PROVIDERS: ATTEND Family Medicine
DX: N63.25 Unspecified lump in the left breast, overlapping quadrants (principal); R59.0 Localized enlarged lymph nodes
CPT/HCPCS: 19083; 19084

== ENCOUNTER → 2021-03-24 | Outpatient (CLI) | payer MEDICARE, OTHER ==
[~2021-03-24] MED LIST changes: +HOLD METFORMIN - RECEIVED CONTRAST 20 ML VIAL IV SCH; +IOHEXOL 350 MG/ML 100 ML (OMNIPAQUE 350) VIAL IV ONE; -LIDOCAINE 1% INJ 20 ML 20 ML VIAL INJ ONE; +NS 100 ML (IVPB) BAG IV ONE
--- NOTE | 2021-03-24 12:53 | Diagnostic Imaging Report ---
PROCEDURE: CT chest with contrast, CT abdomen and pelvis with and without contrast. TECHNIQUE: Pre and post intravenous contrast axial imaging of the abdomen and pelvis and post contrast axial imaging of the chest were performed. Auto Exposure Controls were utilized during the CT exam to meet ALARA standards for radiation dose reduction. INDICATION: Breast cancer. No treatment yet. Evaluate for metastatic disease. COMPARISON: None. CT chest: The heart size is prominent. Post-CABG changes are noted. No pericardial effusion is present. There is calcified aortic and coronary atherosclerotic plaque without aneurysm. There is no mediastinal or hilar lymphadenopathy. The lung windows demonstrate no pulmonary nodules or masses. There are no focal areas of consolidation. No pneumothoraces are present. No central endobronchial obstructing lesions are identified. There are no pleural effusions. The osseous structures demonstrate degenerative changes without focal lytic or blastic lesions. Soft tissue mass is seen in the left breast measuring 4.2 x 3.6 cm and 4.4 cm craniocaudal. Enlarged left axillary lymph nodes are present with the most prominent measuring 3.[address] abdomen and pelvis: The gallbladder surgically absent with prominence of the common bile duct and mildly prominent intrahepatic biliary ducts. No focal hepatic lesions are seen. The portal vein is patent. Cortical cysts are seen in the kidneys bilaterally. No suspicious enhancing cysts are seen in the kidneys. There is normal excretion of contrast on delayed images. No evidence of hydronephrosis. The urinary bladder is mildly distended. The spleen, pancreas, and adrenal glands have a normal appearance. There is no pathologically enlarged mesenteric or retroperitoneal adenopathy. A moderate hiatal hernia is seen. The bowel loops are nondilated. Diverticulosis of the descending and sigmoid colon is seen without evidence of acute diverticulitis. There is no free fluid or free air. No acute osseous abnormalities are seen. There is calcified aortic and iliac atherosclerotic plaque with mild aneurysmal dilation of the infrarenal abdominal aorta measuring 2.1 cm. No periaortic inflammatory changes are seen. There is no free air, loculated collection, or adenopathy in the pelvis. Calcified uterine fibroids are noted. Calcifications are associated with the bilateral ovaries without evidence of mass. IMPRESSION: 1. Soft tissue mass in the left breast with pathologically enlarged left axillary lymph nodes. 2. No other lymphadenopathy is seen in the chest, abdomen and pelvis. No evidence of metastatic disease in the lungs or in the abdomen and pelvis. 3. Moderate hiatal hernia. 4. Diverticulosis of the descending and sigmoid colon without evidence of acute diverticulitis 5. Mild intra and extrahepatic biliary dilation, likely due to postcholecystectomy changes. 6. 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 7. Cardiomegaly. Dictated by: Dictated on workstation # [id number]
== END ==
LOC: RAD 11:45
PROVIDERS: ATTEND Internal Medicine Hematology & Oncology
DX: K44.9 Diaphragmatic hernia without obstruction or gangrene (principal); K57.30 Diverticulosis of large intestine without perforation or abscess without bleeding; I70.0 Atherosclerosis of aorta; I51.7 Cardiomegaly; N63.20 Unspecified lump in the left breast, unspecified quadrant; C50.419 Malignant neoplasm of upper-outer quadrant of unspecified female breast; R59.0 Localized enlarged lymph nodes; Z90.49 Acquired absence of other specified parts of digestive tract
CPT/HCPCS: 71260; 74178

== ENCOUNTER 2021-05-16 14:14 | Outpatient (RCR) | payer MEDICARE, OTHER ==
[~2021-05-16 14:14] MED LIST changes: -HOLD METFORMIN - RECEIVED CONTRAST 20 ML VIAL IV SCH; -IOHEXOL 350 MG/ML 100 ML (OMNIPAQUE 350) VIAL IV ONE; -NS 100 ML (IVPB) BAG IV ONE
[2021-05-16 14:32] LABS: BASOPHILS % (AUTO) 0 % (0-10); EOSINOPHILS # (AUTO) 0.1 10^3/uL (0.0-0.3); EOSINOPHILS % (AUTO) 2 % (0-10); HEMATOCRIT 33 % (35-52); HEMOGLOBIN 10.7 g/dL (11.5-16.0); LYMPHOCYTES # (AUTO) 1.8 10^3/uL (1.0-4.0); LYMPHOCYTES % (AUTO) 30 % (12-44); MEAN CORPUSCULAR HEMOGLOBIN 30 pg (25-34); MEAN CORPUSCULAR HGB CONC 32 g/dL (32-36); MEAN CORPUSCULAR VOLUME 94 fL (80-99); MEAN PLATELET VOLUME 9.6 fL (9.0-12.2); MONOCYTES # (AUTO) 0.6 10^3/uL (0.0-1.0); MONOCYTES % (AUTO) 10 % (0-12); NEUTROPHILS # (AUTO) 3.3 10^3/uL (1.8-7.8); NEUTROPHILS % (AUTO) 57 % (42-75); PLATELET COUNT 151 10^3/uL (130-400); WHITE BLOOD COUNT 5.8 10^3/uL (4.3-11.0)
[2021-05-16 15:17] LABS: ALBUMIN 3.6 GM/DL (3.2-4.5); BILIRUBIN,TOTAL 0.5 MG/DL (0.1-1.0); CALCIUM 9.6 MG/DL (8.5-10.1); CREATININE SERUM 1.05 MG/DL (0.60-1.30); POTASSIUM 4.8 MMOL/L (3.6-5.0)
== END 2021-06-22 | disposition home or self-care (01) ==
LOC: ONC 14:14
PROVIDERS: ATTEND Internal Medicine Hematology & Oncology
DX: C50.812 Malignant neoplasm of overlapping sites of left female breast (principal); I25.10 Atherosclerotic heart disease of native coronary artery without angina pectoris; E11.9 Type 2 diabetes mellitus without complications; I10 Essential (primary) hypertension; E78.2 Mixed hyperlipidemia; E66.9 Obesity, unspecified
CPT/HCPCS: 80053; 85025; 99213; 99214

== ENCOUNTER 2021-08-08 14:23 | Outpatient (RCR) | payer MEDICARE, OTHER ==
[2021-08-08 14:35] LABS: BASOPHILS % (AUTO) 1 % (0-10); EOSINOPHILS # (AUTO) 0.1 10^3/uL (0.0-0.3); EOSINOPHILS % (AUTO) 2 % (0-10); HEMATOCRIT 33 % (35-52); HEMOGLOBIN 10.9 g/dL (11.5-16.0); LYMPHOCYTES # (AUTO) 1.6 10^3/uL (1.0-4.0); LYMPHOCYTES % (AUTO) 29 % (12-44); MEAN CORPUSCULAR HEMOGLOBIN 31 pg (25-34); MEAN CORPUSCULAR HGB CONC 34 g/dL (32-36); MEAN CORPUSCULAR VOLUME 93 fL (80-99); MEAN PLATELET VOLUME 9.4 fL (9.0-12.2); MONOCYTES # (AUTO) 0.6 10^3/uL (0.0-1.0); MONOCYTES % (AUTO) 12 % (0-12); NEUTROPHILS # (AUTO) 3.1 10^3/uL (1.8-7.8); NEUTROPHILS % (AUTO) 56 % (42-75); PLATELET COUNT 155 10^3/uL (130-400); WHITE BLOOD COUNT 5.5 10^3/uL (4.3-11.0)
[2021-08-08 14:59] LABS: ALBUMIN 3.7 GM/DL (3.2-4.5); BILIRUBIN,TOTAL 0.5 MG/DL (0.1-1.0); CALCIUM 9.3 MG/DL (8.5-10.1); CREATININE SERUM 0.9 MG/DL (0.60-1.30); POTASSIUM 4.3 MMOL/L (3.6-5.0); TOTAL PROTEIN 6.4 GM/DL (6.4-8.2)
== END 2021-09-01 | disposition home or self-care (01) ==
LOC: ONC 14:23
PROVIDERS: ATTEND Internal Medicine Hematology & Oncology
DX: C50.812 Malignant neoplasm of overlapping sites of left female breast (principal); I25.10 Atherosclerotic heart disease of native coronary artery without angina pectoris; E11.9 Type 2 diabetes mellitus without complications; I10 Essential (primary) hypertension; E78.2 Mixed hyperlipidemia; E66.9 Obesity, unspecified
CPT/HCPCS: 80053; 85025; G0463; 99213

== ENCOUNTER → 2021-09-20 | Outpatient (CLI) | payer MEDICARE, OTHER | LOC: CARD 10:30 | PROVIDERS: ATTEND Internal Medicine Cardiovascular Disease | DX: Z51.11 Encounter for antineoplastic chemotherapy (principal); I11.9 Hypertensive heart disease without heart failure; I34.0 Nonrheumatic mitral (valve) insufficiency | CPT/HCPCS: 93306 ==

== ENCOUNTER 2022-02-28 12:49 | Outpatient (RCR) | payer MEDICARE, OTHER | END 2022-03-01 | LOC: ONC 12:49 | PROVIDERS: ATTEND Internal Medicine Hematology & Oncology | DX: C50.912 Malignant neoplasm of unspecified site of left female breast (principal); I25.10 Atherosclerotic heart disease of native coronary artery without angina pectoris; E11.9 Type 2 diabetes mellitus without complications; I10 Essential (primary) hypertension; E78.2 Mixed hyperlipidemia; E66.9 Obesity, unspecified | CPT/HCPCS: 99213 ==

== ENCOUNTER → 2022-03-02 | Outpatient (CLI) | payer MEDICARE, OTHER | LOC: CARD 11:02 | PROVIDERS: ATTEND Internal Medicine Cardiovascular Disease | DX: I11.9 Hypertensive heart disease without heart failure (principal); I34.0 Nonrheumatic mitral (valve) insufficiency | CPT/HCPCS: 93306 ==

== ENCOUNTER 2022-05-11 17:17 | Observation (INO) | payer MEDICARE, OTHER ==
[~2022-05-11] VITALS: Ht 152.4 cm; Wt 80.7 kg
[2022-05-11] MEDS ORDERED: morphine INJ 10 MG/ML 1ML (SYR OR VIAL) IVP STA ×2 (17:31→19:29)
--- NOTE | 2022-05-11 17:31 | ED Respiratory ---
General Chief Complaint: Respiratory Problems Stated Complaint: SOB Source: patient, EMS Exam Limitations: no limitations (JENNIFER BOONE APRN) History of Present Illness Date Seen by Provider: May 11, 2022 Time Seen by Provider: 17:31 Initial Comments To ER by EMS from home with reports of shortness of breath worsening since Saturday no fever no cough. She states that she has lung cancer which cannot be treated because of her severe CHF. She is also had left arm swelling since Saturday. Timing/Duration: constant Severity: moderate Associated Symptoms: shortness of breath (JENNIFER BOONE APRN) Allergies and Home Medications Allergies Coded Allergies: No Known Drug Allergies (Verified , 06/30/07) Patient Home Medication List Home Medication List Reviewed: Yes (JENNIFER BOONE APRN) Amlodipine Besylate (Norvasc) 10 Mg Tablet, 10 MG PO DAILY, (Reported) Entered as Reported by: AURORA LOZADA on 09/19/091914 Aspirin (Low Dose Aspirin) 81 Mg Tablet.dr, 81 MG PO DAILY, (Reported) Entered as Reported by: AURORA LOZADA on 09/19/091916 Atorvastatin Calcium (Atorvastatin Calcium) 80 Mg Tablet, 80 MG PO HS, (Reported) Entered as Reported by: ERI MEDRANO on 11/07/16810 Calcium Carbonate (Calcium) 500 Mg Tablet, 1,000 MG PO DAILY, (Reported) Entered as Reported by: ERI MEDRANO on 11/07/16810 Carvedilol (Coreg) 25 Mg Tablet, 25 MG PO BID, (Reported) Entered as Reported by: AURORA LOZADA on 09/19/091914 Clotrimazole/Betamethasone Dip (Clotrimazole-Betamethasone Crm) 15 Gm Cream..g., 0 GM TP BID Prescribed by: RADHA CERDA on 11/20/16922 Folic Acid/Multivits-Min/Lut (Centrum Silver Chewable Tablet) 1 Each Tab.chew, 1 TAB PO DAILY, (Reported) Entered as Reported by: AURORA LOZADA on 09/19/091916 Isosorbide Mononitrate (Isosorbide Mononitrate ER) 30 Mg Tab.er.24h, 30 MG PO BID, (Reported) Entered as Reported by: ERI MEDRANO on 11/07/16810 Levomefolate/B6/B12/Algal Oil (Foltanx Rf Capsule) 1 Each Capsule, 1 CAP PO DAILY, (Reported) Entered as Reported by: ERI MEDRANO on 11/07/16 0811 Lisinopril (Prinivil) 40 Mg Tablet, 40 MG PO DAILY, (Reported) Entered as Reported by: HAZEL SCHAFFER on 07/08/12 1450 Metformin HCl (Metformin HCl) 850 Mg Tablet, 850 MG PO DAILY, (Reported) Entered as Reported by: ERI MEDRANO on 11/07/16 0811 Nitroglycerin (Nitrostat) 0.4 Mg Tab.subl, 0.4 MG SL UD PRN for CHEST PAIN, (Reported) Entered as Reported by: ERI MEDRANO on 11/07/16 0811 Eagle 3 Polyunsat Fatty Acids (Fish Oil) 1,000 Mg Cap, 3,000 MG PO DAILY, (Reported) Entered as Reported by: AURORA LOZADA on 09/19/09 1917 Omeprazole (Omeprazole) 20 Mg Capsule.dr, 20 MG PO DAILY, (Reported) Entered as Reported by: ERI MEDRANO on 11/07/16 0811 Ranitidine HCl (Ranitidine HCl) 150 Mg Tablet, 150 MG PO BID, (Reported) Entered as Reported by: ERI MEDRANO on 11/07/16 0811 Ticagrelor (Brilinta) 90 Mg Tablet, 90 MG PO BID Prescribed by: KEISHA GARDNER on 11/09/16 1040 Tramadol HCl (Tramadol HCl) 50 Mg Tablet, 0 MG PO Q8H PRN for MILD PAIN Prescribed by: RADHA CERDA on 11/20/16 0923 Review of Systems Review of Systems Constitutional: see HPI EENTM: see HPI Respiratory: see HPI, dyspnea on exertion, short of breath Cardiovascular: no symptoms reported Genitourinary: no symptoms reported Musculoskeletal: no symptoms reported Skin: no symptoms reported Psychiatric/Neurological: No Symptoms Reported (JENNIFER BOONE APRN) Physical Exam Vital Signs - First Documented 05/11/22 17:17 Temp 36.7 Pulse 72 Resp 24 B/P (MAP) 126/78 (94) Pulse Ox 97 O2 Delivery Nasal Cannula O2 Flow Rate 3.00 (SOLEDAD SANDERS MD) Capillary Refill : (JENNIFER BOONE APRN) Height: '" Weight: lbs. oz. kg; BMI Method: General Appearance: WD/WN, no apparent distress Eyes: Bilateral Eye Normal Inspection, Bilateral Eye PERRL, Bilateral Eye EOMI Neck: non-tender, full range of motion Respiratory: no respiratory distress, no accessory muscle use, other (She is tachypneic and appears short of breath. She is 93% on room air 97% on 2 L. Blood pressure 116/76 heart rate 79. She has no air movement throughout the le ft lung logan except for the left lung apex. ) Gastrointestinal: normal bowel sounds, non tender, soft Extremities: swelling (3+ pitting edema up to knees. Left arm edema without erythema as well. ) Neurologic/Psychiatric: alert, normal mood/affect, oriented x 3 Skin: normal color, warm/dry (JENNIFER BOONE APRN) Progress/Results/Core Measures Suspected Sepsis SIRS Temperature: Pulse: Respiratory Rate: Laboratory Tests 05/11/22 17:30: White Blood Count 7.8 Blood Pressure / Mean: Laboratory Tests 05/11/22 17:30: Creatinine 1.01, INR Comment 1.1, Platelet Count 248, Total Bilirubin 0.5 (JENNIFER BOONE APRN) Results/Orders Lab Results Laboratory Tests Test 05/11/22 17:30 05/11/22 17:49 05/11/22 17:50 Range/Units White Blood Count 7.8 4.3-11.0 10^3/uL Red Blood Count 3.16 L 3.80-5.11 10^6/uL Hemoglobin 8.1 L 11.5-16.0 g/dL Hematocrit 26 L 35-52 % Mean Corpuscular Volume 82 80-99 fL Mean Corpuscular Hemoglobin 26 25-34 pg Mean Corpuscular Hemoglobin Concent 31 L 32-36 g/dL Red Cell Distribution Width 15.9 H 10.0-14.5 % Platelet Count 248 130-400 10^3/uL Mean Platelet Volume 10.4 9.0-12.2 fL Immature Granulocyte % (Auto) 0 % Neutrophils (%) (Auto) 48 42-75 % Lymphocytes (%) (Auto) 36 12-44 % Monocytes (%) (Auto) 14 H 0-12 % Eosinophils (%) (Auto) 1 0-10 % Basophils (%) (Auto) 1 0-10 % Neutrophils # (Auto) 3.7 1.8-7.8 10^3/uL Lymphocytes # (Auto) 2.8 1.0-4.0 10^3/uL Monocytes # (Auto) 1.1 H 0.0-1.0 10^3/uL Eosinophils # (Auto) 0.1 0.0-0.3 10^3/uL Basophils # (Auto) 0.0 0.0-0.1 10^3/uL Immature Granulocyte # (Auto) 0.0 0.0-0.1 10^3/uL Prothrombin Time 14.6 12.2-14.7 SEC INR Comment 1.1 0.8-1.4 Sodium Level 141 135-145 MMOL/L Potassium Level 4.1 3.6-5.0 MMOL/L Chloride Level 105 98-107 MMOL/L Carbon Dioxide Level 21 21-32 MMOL/L Anion Gap 15 H 5-14 MMOL/L Blood Urea Nitrogen 26 H 7-18 MG/DL Creatinine 1.01 0.60-1.30 MG/DL Estimat Glomerular Filtration Rate 56 BUN/Creatinine Ratio 26 Glucose Level 112 H 70-105 MG/DL Calcium Level 9.0 8.5-10.1 MG/DL Corrected Calcium 9.8 8.5-10.1 MG/DL Magnesium Level 1.6 1.6-2.4 MG/DL Total Bilirubin 0.5 0.1-1.0 MG/DL Aspartate Amino Transf (AST/SGOT) 112 H 5-34 U/L Alanine Aminotransferase (ALT/SGPT) 62 H 0-55 U/L Alkaline Phosphatase 93 40-136 U/L B-Type Natriuretic Peptide 805.0 H <100.0 PG/ML Total Protein 5.8 L 6.4-8.2 GM/DL Albumin 3.0 L 3.2-4.5 GM/DL Bedside Blood Gas pH (LAB) 7.386 7.310-7.410 Bedside Blood Gas pCO2 (LAB) 32.9 L 41.0-51.0 mmHg Bedside Blood Gas pO2 (LAB) 92 80-105 mmHg Bedside Blood Gas HCO3 (LAB) 19.7 L 23.0-28.0 mmol/L POC Blood Gas Total CO2 Calc 21 L 24-29 mmol/L Bedside Bl Gas O2 Saturation (Calc) 97 95-98 % Bedside Arterial Blood Base Excess -5 L -2-3 mmol/L Influenza Type A (RT-PCR) Not Detected Not Detecte Influenza Type B (RT-PCR) Not Detected Not Detecte SARS-CoV-2 RNA (RT-PCR) Negative Not Detecte (SOLEDAD SANDERS MD) Vital Signs/I&O 05/11/22 17:17 Temp 36.7 Pulse 72 Resp 24 B/P (MAP) 126/78 (94) Pulse Ox 97 O2 Delivery Nasal Cannula O2 Flow Rate 3.00 (SOLEDAD SANDERS MD) Vital Signs/I&O Capillary Refill : (JENNIFER BOONE APRN) Departure Communication (Admissions) 1934-She does wish to be a DO NOT RESUSCITATE DO NOT INTUBATE status. I will admit her for her dyspnea and pain control. 2 mg of morphine were quite well. Discussed with her hospice which she has not familiar with but she is interested in getting started. She asks "do I have much time left?" Advised that no one really knows that answer but I do not suspect that she has much time left. She states "that is what I was thinking too". NAME: [facility] REC#: [id number] PT STATUS: REG ER : 1940 PHYSICIAN: JENNIFER BOONE APRN ADMIT DATE: 05/11/22/ER Draft Date of Exam:05/11/22 CT ANGIO CHEST W PROCEDURE: CT angiography of the chest with contrast. TECHNIQUE: Multiple contiguous axial images were obtained through the chest after uneventful bolus administration of intravenous contrast. 3D reconstructed CTA MIP acquisitions were also performed. Auto Exposure Controls were utilized during the CT exam to meet ALARA standards for radiation dose reduction. DATE: May 11, 2022. COMPARISON: CT chest, abdomen and pelvis March 24, 2021. INDICATION: 82-year-old female, increasing shortness of breath. FINDINGS: There is a right upper lobe pulmonary nodule measuring 11 mm in size which is a significant interval change since March 24, 2021. There is a nodule in the lingula measuring 12 mm in size on axial image 65 which is new. There is a moderate sized left pleural effusion and a small right pleural effusion. There is no identified pulmonary embolus. There are coronary artery calcifications and additional areas of atherosclerotic disease. The heart is not enlarged. There is no pericardial effusion. There is masslike soft tissue attenuation in the left breast on axial image 48 measuring approximately 4.0 x 2.9 cm in axial extent. There is skin thickening at the level of both breasts. There is an abnormally enlarged left axillary lymph node measuring 1.8 cm in short axis which previously measured 1.5 cm in short axis. There is differential attenuation in the left lobe of the liver compared to the right which may reflect a perfusion related phenomenon. There are areas of heterogeneous subtle low-attenuation in the right lobe of liver such as on axial image 156 which does raise concern for potential liver metastasis although this is suboptimally evaluated. There is a small amount of fluid immediately adjacent of the liver. There is nondiagnostic assessment of the portal vasculature given timing of the contrast. There is a moderate sized hiatal hernia. There is a low-attenuation right renal lesion on axial image 135 measuring 2.2 cm in size with internal attenuation consistent with a benign cyst. There are subcentimeter right renal lesions too small to characterize and an incompletely imaged lesion arising from the inferior pole which is not able to be characterized. There is an indeterminate left renal lesion measuring 1.3 cm in size on axial image 166. There is a benign left renal cyst on axial image 151 measuring 2.7 cm in size. There is moderate left renal atrophy. There are bilateral renal stents. There are prominent atherosclerotic findings. There are multilevel degenerative changes of the spine. There are median sternotomy wires. There is bilateral glenohumeral arthritis. There is an ill-defined sclerotic lesion of T6 which is new since March 24, 2021 and is seen on sagittal image 96. There is also a similar-appearing very subtle sclerotic lesion of T8 and also of T10. These are also new. There is a T11 vertebral body hemangioma. IMPRESSION: CT chest: 1. Large left breast mass concerning for primary malignancy in the left breast. 2. Left axillary lymph node likely reflecting a janie metastasis with mild interval increase in size since the comparison CT. 3. Interval increase in size of right upper lobe and new pulmonary nodule in the lingula most likely reflecting sites of metastatic disease. 4. Moderate left and small right pleural effusions. 5. There are new sclerotic bone lesions likely reflecting sclerotic bone metastasis. 6. Nonspecific differential attenuation of left and right lobes of the liver. The study is suboptimal for detection of metastatic disease to the liver. There are areas of heterogeneous low signal in the right lobe of the liver which do raise concern for at least possibility of liver metastasis. Dictated on workstation # [id number] Dict: 05/11/221856 Trans: 05/11/221912 [facility] [id number] Interpreted by: YISEL CRAWFORD MD Electronically signed by: (JENNIFER BOONE APRN) Impression Primary Impression: Dyspnea Additional Impression: Metastatic breast cancer Disposition: ADMITTED INPATIENT Condition: Stable Admissions Decision to Admit Reason: Admit from ER (General) Decision to Admit/Date: May 11, 2022 Time/Decision to Admit Time: 19:33 (JENNIFER BOONE APRN) PHYSICIAN ATTESTATION NOTE: I was present in the ER while [employer] M[employer] / PA saw the patient, but I was not involved in the care, exam, or management of the patient. (SOLEDAD SANDERS MD) JENNIFER BOONE APRN May 11, 2022 17:31 SOLEDAD SANDERS MD May 14, 2022 07:01
[2022-05-11] MEDS ORDERED: morphine INJ 10 MG/ML 1ML (SYR OR VIAL) ONE (17:47)
[2022-05-11 17:48] LABS: BASOPHILS % (AUTO) 1 % (0-10); EOSINOPHILS # (AUTO) 0.1 10^3/uL (0.0-0.3); EOSINOPHILS % (AUTO) 1 % (0-10); HEMATOCRIT 26 % (35-52); HEMOGLOBIN 8.1 g/dL (11.5-16.0); LYMPHOCYTES # (AUTO) 2.8 10^3/uL (1.0-4.0); LYMPHOCYTES % (AUTO) 36 % (12-44); MEAN CORPUSCULAR HEMOGLOBIN 26 pg (25-34); MEAN CORPUSCULAR HGB CONC 31 g/dL (32-36); MEAN CORPUSCULAR VOLUME 82 fL (80-99); MEAN PLATELET VOLUME 10.4 fL (9.0-12.2); MONOCYTES # (AUTO) 1.1 10^3/uL (0.0-1.0); MONOCYTES % (AUTO) 14 % (0-12); NEUTROPHILS # (AUTO) 3.7 10^3/uL (1.8-7.8); NEUTROPHILS % (AUTO) 48 % (42-75); PLATELET COUNT 248 10^3/uL (130-400); WHITE BLOOD COUNT 7.8 10^3/uL (4.3-11.0)
[2022-05-11 18:01] LABS: INR 1.1 (0.8-1.4); PROTHROMBIN TIME PATIENT 14.6 SEC (12.2-14.7)
[2022-05-11 18:05] LABS: POTASSIUM 4.1 MMOL/L (3.6-5.0)
[2022-05-11 18:07] LABS: TOTAL PROTEIN 5.8 GM/DL (6.4-8.2)
[2022-05-11 18:09] LABS: BILIRUBIN,TOTAL 0.5 MG/DL (0.1-1.0)
--- NOTE | 2022-05-11 18:09 | Diagnostic Imaging Report ---
INDICATION: Shortness of breath. EXAMINATION: Frontal chest was obtained at 5:22 p.m. COMPARISON: 11/09/2016. There is cardiomegaly. There is central vascular congestion with some interstitial edema. There is a small left pleural effusion. IMPRESSION: Cardiomegaly and postoperative change. Central vascular congestion is noted with mild interstitial edema with small left pleural effusion. Dictated by: Dictated on workstation # [id number]
[2022-05-11 18:11] LABS: CREATININE SERUM 1.01 MG/DL (0.60-1.30)
[2022-05-11 18:14] LABS: MAGNESIUM 1.6 MG/DL (1.6-2.4)
[2022-05-11] MEDS ORDERED: NS 100 ML (IVPB) BAG IV ONE (18:45)
[2022-05-11] MEDS ORDERED: IOHEXOL 350 MG/ML 100 ML (OMNIPAQUE 350) VIAL IV ONE (18:45)
--- NOTE | 2022-05-11 19:13 | Diagnostic Imaging Report ---
PROCEDURE: CT angiography of the chest with contrast. TECHNIQUE: Multiple contiguous axial images were obtained through the chest after uneventful bolus administration of intravenous contrast. 3D reconstructed CTA MIP acquisitions were also performed. Auto Exposure Controls were utilized during the CT exam to meet ALARA standards for radiation dose reduction. DATE: May 11, 2022. COMPARISON: CT chest, abdomen and pelvis March 24, 2021. INDICATION: 82-year-old female, increasing shortness of breath. FINDINGS: There is a right upper lobe pulmonary nodule measuring 11 mm in size which is a significant interval change since March 24, 2021. There is a nodule in the lingula measuring 12 mm in size on axial image 65 which is new. There is a moderate sized left pleural effusion and a small right pleural effusion. There is no identified pulmonary embolus. There are coronary artery calcifications and additional areas of atherosclerotic disease. The heart is not enlarged. There is no pericardial effusion. There is masslike soft tissue attenuation in the left breast on axial image 48 measuring approximately 4.0 x 2.9 cm in axial extent. There is skin thickening at the level of both breasts. There is an abnormally enlarged left axillary lymph node measuring 1.8 cm in short axis which previously measured 1.5 cm in short axis. There is differential attenuation in the left lobe of the liver compared to the right which may reflect a perfusion related phenomenon. There are areas of heterogeneous subtle low-attenuation in the right lobe of liver such as on axial image 156 which does raise concern for potential liver metastasis although this is suboptimally evaluated. There is a small amount of fluid immediately adjacent of the liver. There is nondiagnostic assessment of the portal vasculature given timing of the contrast. There is a moderate sized hiatal hernia. There is a low-attenuation right renal lesion on axial image 135 measuring 2.2 cm in size with internal attenuation consistent with a benign cyst. There are subcentimeter right renal lesions too small to characterize and an incompletely imaged lesion arising from the inferior pole which is not able to be characterized. There is an indeterminate left renal lesion measuring 1.3 cm in size on axial image 166. There is a benign left renal cyst on axial image 151 measuring 2.7 cm in size. There is moderate left renal atrophy. There are bilateral renal stents. There are prominent atherosclerotic findings. There are multilevel degenerative changes of the spine. There are median sternotomy wires. There is bilateral glenohumeral arthritis. There is an ill-defined sclerotic lesion of T6 which is new since March 24, 2021 and is seen on sagittal image 96. There is also a similar-appearing very subtle sclerotic lesion of T8 and also of T10. These are also new. There is a T11 vertebral body hemangioma. IMPRESSION: CT chest: 1. Large left breast mass concerning for primary malignancy in the left breast. 2. Left axillary lymph node likely reflecting a janie metastasis with mild interval increase in size since the comparison CT. 3. Interval increase in size of right upper lobe and new pulmonary nodule in the lingula most likely reflecting sites of metastatic disease. 4. Moderate left and small right pleural effusions. 5. There are new sclerotic bone lesions likely reflecting sclerotic bone metastasis. 6. Nonspecific differential attenuation of left and right lobes of the liver. The study is suboptimal for detection of metastatic disease to the liver. There are areas of heterogeneous low signal in the right lobe of the liver which do raise concern for at least possibility of liver metastasis. Dictated by: Dictated on workstation # [id number]
[2022-05-11] MEDS ORDERED: FUROSEMIDE 40 MG/4 ML INJ (LASIX) IVP ONE (19:30)
[2022-05-11 21:49] VITALS: BP 185/77
[2022-05-11] MEDS: morphine INJ 4 MG/ML 1 ML (VIAL/SYRINGE) IV PRN (23:10)
[2022-05-11 23:41] VITALS: BP 126/65
[2022-05-12] MEDS: FUROSEMIDE 40 MG/4 ML INJ (LASIX) IV SCH (05:51)
[2022-05-12] MEDS: CATHETER FLUSH 10 ML SYR IVP SCH ×3 (05:51→20:22)
[2022-05-12] MEDS: KCL 20 MEQ TAB (K-DUR) PO SCH (05:51)
[2022-05-12 07:03] LABS: BASOPHILS % (AUTO) 0 % (0-10); EOSINOPHILS # (AUTO) 0.1 10^3/uL (0.0-0.3); EOSINOPHILS % (AUTO) 2 % (0-10); HEMATOCRIT 26 % (35-52); HEMOGLOBIN 8.1 g/dL (11.5-16.0); LYMPHOCYTES # (AUTO) 1.4 10^3/uL (1.0-4.0); LYMPHOCYTES % (AUTO) 19 % (12-44); MEAN CORPUSCULAR HEMOGLOBIN 25 pg (25-34); MEAN CORPUSCULAR HGB CONC 31 g/dL (32-36); MEAN CORPUSCULAR VOLUME 83 fL (80-99); MEAN PLATELET VOLUME 10.5 fL (9.0-12.2); MONOCYTES # (AUTO) 0.8 10^3/uL (0.0-1.0); MONOCYTES % (AUTO) 11 % (0-12); NEUTROPHILS % (AUTO) 68 % (42-75); PLATELET COUNT 214 10^3/uL (130-400); WHITE BLOOD COUNT 7.3 10^3/uL (4.3-11.0)
[2022-05-12 07:17] LABS: CALCIUM 8.7 MG/DL (8.5-10.1); CREATININE SERUM 1.01 MG/DL (0.60-1.30); POTASSIUM 4.2 MMOL/L (3.6-5.0)
[2022-05-12 07:58] VITALS: BP 141/63
[2022-05-12] MEDS ORDERED: PANTOPRAZOLE 20 MG TABLET (PROTONIX) PO NR (09:30)
[2022-05-12] MEDS: morphine INJ 4 MG/ML 1 ML (VIAL/SYRINGE) IV PRN ×2 (11:19→20:22)
--- NOTE | 2022-05-12 12:24 | History & Physical-Hospitalist ---
History of Present Illness HPI/Chief Complaint Patient is an 82-year-old female with past medical history of metastatic breast cancer who presented to the emergency department due to shortness of breath and left upper extremity swelling. She reports its been going on for roughly 1 week but was hopeful that it would improve after Labor Day. She quit taking her Lasix as she did not like all of the urination and caused. Ultimately she informed her daughter of her symptoms and her daughter brought her to the emergency room for evaluation. Work-up in the emergency department revealed diffusely metastatic disease from known lung cancer and she was admitted for symptom management. She is very interested in hospice as is her family who is at bedside. Source: patient, family Date Seen 05/12/22 Time Seen by a Provider: 12:18 Attending Physician No,Local Physician PCP Admitting Physician: Josselin Gonzalez MD Attending Physician: Josselin Gonzalez MD Referring Physician Date of Admission May 11, 2022 at 19:32 Home Medications & Allergies Home Medications Reviewed patient Home Medication Reconciliation performed by pharmacy medication reconciliations donor services technician and/or nursing. Patients Allergies have been reviewed. Allergies Allergies Coded Allergies No Known Drug Allergies (Cdnovgms10/29/07) Past Pejgrjz-Ekoaze-Obvpgs Hx Patient Social History Employed/Student: retired Tobacco Use?: No Smoking Status: Former Smoker Use of E-Cig and/or Vaping dev: No Substance use?: No Alcohol Use?: No Pt feels they are or have been: No Immunizations Up To Date Date of Influenza Vaccine: Jun 20, 2016 Tetanus Booster (TDap): Unknown Hepatitis A: No Hepatitis B: No PED Vaccines UTD: No Date of Pneumonia Vaccine: Jun 11, 2012 Seasonal Allergies Seasonal Allergies: No Current Status Advance Directives: No Communicates: Verbally Primary Language: Micronesian Preferred Spoken Language: Micronesian Is interpretation needed?: No Sensory deficits: Vision impairment Past Medical History Surgeries: Adenoidectomy, Appendectomy, CABG, Gallbladder, Tonsillectomy COPD Currently Using CPAP: No Currently Using BIPAP: No Coronary Artery Disease, High Cholesterol, Hypertension Sexually Transmitted Disease: No HIV/AIDS: No Gastroesophageal Reflux Diabetes, Non-Insulin dep Breast Did You Recieve Any Treatments: No Blood Disorders: No Adverse Reaction/Blood Tranf: No Family Medical History FH: CVA (cerebrovascular accident) 19 FATHER Myocardial infarction 19 MOTHER Thyroid disease G8 BROTHER Review of Systems Constitutional: No chills, No fever EENTM: no symptoms reported Respiratory: dyspnea on exertion, short of breath Cardiovascular: No chest pain Gastrointestinal: no symptoms reported Genitourinary: see HPI Musculoskeletal: see HPI Skin: no symptoms reported Psychiatric/Neurological: No Symptoms Reported Physical Exam Physical Exam Vital Signs Vital Signs - First Documented 05/11/22 17:17 Temp 36.7 Pulse 72 Resp 24 B/P (MAP) 126/78 (94) Pulse Ox 97 O2 Delivery Nasal Cannula O2 Flow Rate 3.00 Capillary Refill : Height, Weight, BMI Height: 5'0.00" Weight: 185lbs. 0.0oz. 83.346278ox; 34.74 BMI Method:Stated General Appearance: No Apparent Distress, Chronically ill, Obese HEENT: PERRL/EOMI, Moist Mucous Membranes; No Scleral Icterus (L), No Scleral Icterus (R) Neck: Normal Inspection, Supple Respiratory: No Accessory Muscle Use, No Respiratory Distress, Decreased Breath Sounds Cardiovascular: Regular Rate, Rhythm, No JVD, No Murmur Gastrointestinal: Normal Bowel Sounds, Non Tender, Soft Extremity: Normal Capillary Refill, No Calf Tenderness, Swelling (left upper extremity) Neurologic/Psychiatric: Alert, Oriented x3, Normal Mood/Affect Skin: Normal Color, Warm/Dry Results Results/Procedures Labs Laboratory Tests 05/11/22 17:30 05/12/22 06:34 Patient resulted labs reviewed. Imaging: Reviewed Imaging Report Imaging [facility], [place] NAME: ASHLYN MCDANIEL [facility] REC#: [id number] PT STATUS: REG ER : 1940 PHYSICIAN: JENNIFER BOONE BIOMEDICAL EQUIPMENT TECHNICIAN ADMIT DATE: 05/11/22/ER Signed Date of Exam:05/11/22 CHEST 1 VIEW, AP/PA ONLY INDICATION: Shortness of breath. EXAMINATION: Frontal chest was obtained at 5:22 p.m. COMPARISON: 11/09/2016. There is cardiomegaly. There is central vascular congestion with some interstitial edema. There is a small left pleural effusion. IMPRESSION: Cardiomegaly and postoperative change. Central vascular congestion is noted with mild interstitial edema with small left pleural effusion. Dictated by: Dictated on workstation # [id number] Dict: 05/11/22 1800 Trans: 05/11/221819 [facility] [id number] Interpreted by: WENCESLAO ZARAGOZA MD Electronically signed by: WENCESLAO ZARAGOZA MD 05/11/221819 [facility] [place] [place] NAME: ASHLYN MCDANIEL [facility] REC#: [id number] PT STATUS: REG ER : 1940 PHYSICIAN: JENNIFER BOONE APRN ADMIT DATE: 05/11/22/ER Signed Date of Exam:05/11/22 CT ANGIO CHEST W PROCEDURE: CT angiography of the chest with contrast. TECHNIQUE: Multiple contiguous axial images were obtained through the chest after uneventful bolus administration of intravenous contrast. 3D reconstructed CTA MIP acquisitions were also performed. Auto Exposure Controls were utilized during the CT exam to meet ALARA standards for radiation dose reduction. DATE: May 11, 2022. COMPARISON: CT chest, abdomen and pelvis March 24, 2021. INDICATION: 82-year-old female, increasing shortness of breath. FINDINGS: There is a right upper lobe pulmonary nodule measuring 11 mm in size which is a significant interval change since March 24, 2021. There is a nodule in the lingula measuring 12 mm in size on axial image 65 which is new. There is a moderate sized left pleural effusion and a small right pleural effusion. There is no identified pulmonary embolus. There are coronary artery calcifications and additional areas of atherosclerotic disease. The heart is not enlarged. There is no pericardial effusion. There is masslike soft tissue attenuation in the left breast on axial image 48 measuring approximately 4.0 x 2.9 cm in axial extent. There is skin thickening at the level of both breasts. There is an abnormally enlarged left axillary lymph node measuring 1.8 cm in short axis which previously measured 1.5 cm in short axis. There is differential attenuation in the left lobe of the liver compared to the right which may reflect a perfusion related phenomenon. There are areas of heterogeneous subtle low-attenuation in the right lobe of liver such as on axial image 156 which does raise concern for potential liver metastasis although this is suboptimally evaluated. There is a small amount of fluid immediately adjacent of the liver. There is nondiagnostic assessment of the portal vasculature given timing of the contrast. There is a moderate sized hiatal hernia. There is a low-attenuation right renal lesion on axial image 135 measuring 2.2 cm in size with internal attenuation consistent with a benign cyst. There are subcentimeter right renal lesions too small to characterize and an incompletely imaged lesion arising from the inferior pole which is not able to be characterized. There is an indeterminate left renal lesion measuring 1.3 cm in size on axial image 166. There is a benign left renal cyst on axial image 151 measuring 2.7 cm in size. There is moderate left renal atrophy. There are bilateral renal stents. There are prominent atherosclerotic findings. There are multilevel degenerative changes of the spine. There are median sternotomy wires. There is bilateral glenohumeral arthritis. There is an ill-defined sclerotic lesion of T6 which is new since March 24, 2021 and is seen on sagittal image 96. There is also a similar-appearing very subtle sclerotic lesion of T8 and also of T10. These are also new. There is a T11 vertebral body hemangioma. IMPRESSION: CT chest: 1. Large left breast mass concerning for primary malignancy in the left breast. 2. Left axillary lymph node likely reflecting a janie metastasis with mild interval increase in size since the comparison CT. 3. Interval increase in size of right upper lobe and new pulmonary nodule in the lingula most likely reflecting sites of metastatic disease. 4. Moderate left and small right pleural effusions. 5. There are new sclerotic bone lesions likely reflecting sclerotic bone metastasis. 6. Nonspecific differential attenuation of left and right lobes of the liver. The study is suboptimal for detection of metastatic disease to the liver. There are areas of heterogeneous low signal in the right lobe of the liver which do raise concern for at least possibility of liver metastasis. Dictated by: Dictated on workstation # [id number] Dict: 05/11/221856 Trans: 05/11/221915 [facility] [id number] Interpreted by: YISEL CRAWFORD MD Electronically signed by: YISEL CRAWFORD MD 05/11/221915 Assessment/Plan Admission Diagnosis Widely metastatic breast cancer Admission Status: Inpatient Order (span 2 midnights) Reason for Inpatient Admission: see below Assessment and Plan Widely metastatic breast cancer Malignant pleural effusion bony metastatic liver mets Transaminitis Anemia CAD s/p CABG CHF HTN HLD NIDDMII Was not able to seek treatment for cancer due to CHF Interested in hospice Morphine for pain control Lasix for diuresis Oxygen to keep sats greater than 90 Discussed hospice options with patient and family They plan to meet with hospice agencies today to plan for DC to home Resume home meds as able when med rec done Diagnosis/Problems Diagnosis/Problems (1) Malignant pleural effusion (2) Liver metastasis (3) Bony metastasis (4) CAD (coronary artery disease) (5) Essential (primary) hypertension (6) HLD (hyperlipidemia) (7) Non-insulin dependent type 2 diabetes mellitus (8) Metastatic breast cancer Status: Acute (9) CHF (congestive heart failure) (10) Hypoxia JOSSELIN GONZALEZ MD May 12, 2022 12:24
--- NOTE | 2022-05-12 13:21 | Discharge Inst-Simple/Standard ---
Discharge Inst-Standard Discharge Medications New, Converted or Re-Newed RX: Transmitted to Pharmacy Patient Instructions/Follow Up Plan of Care/Instructions/FU: Please continue to take your medications as written. Please follow up with your primary care doctor to follow up this hospital stay. Activity as Tolerated: Yes Discharge Diet: No Restrictions Return to The Hospital For: Chest pain, shortness of breath, fever, weakness, if you feel you are getting worse. JOSSELIN MURRY MD May 12, 2022 13:21
[2022-05-12 16:43] VITALS: BP 97/63
[2022-05-13 00:30] VITALS: BP 100/65
[2022-05-13] MEDS: morphine INJ 4 MG/ML 1 ML (VIAL/SYRINGE) IV PRN ×4 (02:04→15:38)
[2022-05-13] MEDS ORDERED: CALCIUM CARBONATE 500 MG (TUMS) TAB.CHEW PO PRN (06:00)
[2022-05-13] MEDS: KCL 20 MEQ TAB (K-DUR) PO SCH (06:02)
[2022-05-13] MEDS: ALPRAZolam 0.25 MG (XANAX) TAB PO PRN ×2 (06:02→15:38)
[2022-05-13] MEDS: PANTOPRAZOLE 40 MG (PROTONIX) VIAL IV SCH ×2 (06:03→09:26)
[2022-05-13] MEDS: CATHETER FLUSH 10 ML SYR IVP SCH ×2 (06:03→15:39)
[2022-05-13] MEDS: FUROSEMIDE 40 MG/4 ML INJ (LASIX) IV SCH (06:03)
[2022-05-13 08:08] VITALS: BP 86/54
--- NOTE | 2022-05-13 11:51 | Discharge Summary ---
Diagnosis/Chief Complaint Date of Admission May 11, 2022 at 19:32 Date of Discharge Discharge Date: May 12, 2022 Admission Diagnosis Widely metastatic breast cancer Primary Care No,Local Physician Discharge Diagnosis (1) Malignant pleural effusion (2) Liver metastasis (3) Bony metastasis (4) CAD (coronary artery disease) (5) Essential (primary) hypertension (6) HLD (hyperlipidemia) (7) Non-insulin dependent type 2 diabetes mellitus (8) Metastatic breast cancer Status: Acute (9) CHF (congestive heart failure) (10) Hypoxia Discharge Summary Discharge Physical Exam Allergies: Coded Allergies: No Known Drug Allergies (Verified , 06/30/07) Vitals & I&Os Vital Signs Date Time Temp Pulse Resp B/P (MAP) Pulse Ox O2 Delivery O2 Flow Rate FiO2 05/13/22 08:29 Nasal Cannula 3.00 05/13/22 08:08 36.2 71 16 86/54 (65 94 General Appearance: No Apparent Distress, Chronically ill Cardiovascular: Regular Rate, Rhythm, No Murmur Hospital Course Patient was admitted to the hospital secondary to hypoxia and intractable pain. She has a known history of metastatic breast cancer that she has not been able to undergo treatment for. Imaging in the emergency room revealed severe progres jose of her disease. She elected to admit for symptom control with goal to discharge home to hospice. Pain was well controlled on morphine and a fentanyl patch was added. Family elected to discharge with [facility] hospice. She is to follow-up with her primary care provider to follow-up this hospital stay. Labs (last 24 hrs) Patient resulted labs reviewed. Imaging: Reviewed Imaging Report Discussion & Recommendations Discharge Planning: >30 minutes discharge planning Discharge Home Medications: Active Scripts Active Clotrimazole-Betamethasone Crm (Clotrimazole/Betamethasone Dip) 15 Gm Cream..g. 0 Gm TP BID Tramadol HCl 50 Mg Tablet 0 Mg PO Q8H PRN Brilinta (Ticagrelor) 90 Mg Tablet 90 Mg PO BID 30 Days Reported Calcium (Calcium Carbonate) 500 Mg Tablet 1,000 Mg PO DAILY Nitrostat (Nitroglycerin) 0.4 Mg Tab.subl 0.4 Mg SL UD PRN Foltanx Rf Capsule (Levomefolate/B6/B12/Algal Oil) 1 Each Capsule 1 Cap PO DAILY Atorvastatin Calcium 80 Mg Tablet 80 Mg PO HS Omeprazole 20 Mg Capsule.dr 20 Mg PO DAILY Isosorbide Mononitrate ER (Isosorbide Mononitrate) 30 Mg Tab.er.24h 30 Mg PO BID Metformin HCl 850 Mg Tablet 850 Mg PO DAILY Ranitidine HCl 150 Mg Tablet 150 Mg PO BID Prinivil (Lisinopril) 40 Mg Tablet 40 Mg PO DAILY Centrum Silver Chewable Tablet (Folic Acid/Multivits-Min/Lut) 1 Each Tab.chew 1 Tab PO DAILY Fish Oil 1,000 Mg Cap 3,000 Mg PO DAILY TAKES 3 (1000MG) CAPSULES Low Dose Aspirin (Aspirin) 81 Mg Tablet.dr 81 Mg PO DAILY Coreg (Carvedilol) 25 Mg Tablet 25 Mg PO BID Norvasc (Amlodipine Besylate) 10 Mg Tablet 10 Mg PO DAILY Instructions to patient/family Please see electronic discharge instructions given to patient. JOSSELIN MURRY MD May 13, 2022 11:51
[2022-05-13] MEDS ORDERED: fentaNYL PATCH 25 MCG (DURAGESIC) TD SCH (12:00)
[2022-05-13 16:00] VITALS: BP 139/63
== END 2022-05-13 19:20 | disposition hospice, home (50) ==
LOC: EDUNIT# 17:17 → ER 17:31 → 4TH 19:32 → UNDOADMOB 19:32 → 4TH 21:37 → UNDODISOB 05-13 19:20
PROVIDERS: ADMIT Family Medicine; ATTEND Family Medicine
DX: J91.0 Malignant pleural effusion (principal); C50.919 Malignant neoplasm of unspecified site of unspecified female breast; C78.7 Secondary malignant neoplasm of liver and intrahepatic bile duct; C79.51 Secondary malignant neoplasm of bone; I25.10 Atherosclerotic heart disease of native coronary artery without angina pectoris; E78.5 Hyperlipidemia, unspecified; E11.9 Type 2 diabetes mellitus without complications; I11.0 Hypertensive heart disease with heart failure; I50.9 Heart failure, unspecified; R09.02 Hypoxemia; Z79.899 Other long term (current) drug therapy; Z79.84 Long term (current) use of oral hypoglycemic drugs; Z87.891 Personal history of nicotine dependence
CPT/HCPCS: 36415; 71045; 71275; 80048; 80053; 82805; 83735; 83880; 85025; 85610; 87636; 93005; 96375; 96376; G0378